=== PATIENT | female | born 1955 | race Caucasian/White ===

== ENCOUNTER 2020-01-19 11:22 | Outpatient (REF) | payer OTHER, SELFPAY ==
[2020-01-19 14:58] LABS: Free T4 (Free Thyroxine) 1.42 ng/dL (0.71-1.85); Thyroid Stimulating Hormone 4.32 mIU/mL (0.32-4.0)
[2020-01-30 21:48] LABS: Thyroglobulin Antibody 52 IU/mL (<=1); Thyroglobulin LC/MS/MS <0.4 ng/mL (Athyrotic: <0)
== END 2020-01-19 11:23 | disposition home or self-care (01) ==
LOC: HO.HMGCLDS 11:22
PROVIDERS: PCP Internal Medicine; Visit Provider Internal Medicine Endocrinology, Diabetes & Metabolism
DX: C73 Malignant neoplasm of thyroid gland (principal)
CPT/HCPCS: 36415; 84432; 84439; 84443; 86800

== ENCOUNTER → 2020-01-22 10:55 | Outpatient (BNVA) | payer OTHER, SELFPAY | PROVIDERS: PCP Internal Medicine; Visit Provider Urology | DX: R31.29 Other microscopic hematuria (principal) | CPT/HCPCS: 52000; 81002; 99212 ==

== ENCOUNTER 2020-01-28 12:29 | Outpatient (REF) | payer OTHER, SELFPAY ==
--- NOTE | 2020-01-28 | MM_ITS ---
EXAMINATION: MM SCREENING DIGITAL BREAST TOMOSYNTHESIS, BILATERAL CLINICAL INFORMATION: Screening. Asymptomatic. Status post right lumpectomy. COMPARISON: Mammography: August 28, 2018 and studies dating back to July 22, 2012 TECHNIQUE: Digital breast tomosynthesis is performed in both the craniocaudal and mediolateral oblique views along with computer-aided detection (CAD). Synthesized 2D images are generated from the tomosynthesis. Additional right exaggerated craniocaudal view performed. FINDINGS: There are scattered areas of fibroglandular density (ACR BI-RADS breast composition Category b). There are no significant masses, abnormal calcifications, or other abnormalities. Patient status post remote right lumpectomy with associated postsurgical change. MM/MM tomosynthesis screening BI IMPRESSION: There are no significant changes from prior study. ASSESSMENT: BI-RADS 2: Benign RECOMMENDATION: Routine annual mammography screening. This patient's information was entered into a reminder system with a target due date for their next mammogram.
== END 2020-01-28 12:30 | disposition home or self-care (01) ==
LOC: HO.MAMMO 12:29
PROVIDERS: PCP Internal Medicine; Visit Provider Internal Medicine
DX: Z12.31 Encounter for screening mammogram for malignant neoplasm of breast (principal)
CPT/HCPCS: 77063; 77067

== ENCOUNTER 2020-01-29 10:58 | Outpatient (REF) | payer OTHER, SELFPAY ==
[2020-01-29 12:45] LABS: MANUAL DIFF FLAG NO
[2020-01-29 12:59] LABS: Basophils Absolute Auto 0.1 X10*3/uL (0.0-0.2); Basophils Percent Auto 1.3 % (0-2); Eosinophils Absolute Auto 0.4 X10*3/uL (0.0-0.4); Hemoglobin 14.8 g/dl (12.0-16.0); Imm Gran Abs Auto 0.01 X10*3/uL (0.00-0.03); Imm Gran Pct Auto 0.1 % (0.0-0.4); Lymphocytes Absolute Auto 2.2 X10*3/uL (1.2-4.9); Lymphocytes Percent Auto 30.2 % (20-40); Mean Corpuscular HGB Conc 32.9 g/dl (31.0-35.0); Mean Corpuscular Hemoglobin 29.1 pg (27.0-33.0); Mean Corpuscular Volume 88.6 fL (80-98); Mean Platelet Volume 10.1 fL (9.4-12.3); Monocytes Absolute Auto 0.6 X10*3/uL (0.1-1.2); Monocytes Percent Auto 8.1 % (2-11); Neutrophils Percent Auto 55.3 % (45-73); Platelet Count 332 X10*3/uL (160-400); Red Blood Count 5.08 X10*6/uL (4.20-5.50); Red Cell Distribution Width 12.2 % (11.0-16.0); White Blood Count 7.2 X10*3/uL (4.8-10.8)
[2020-01-29 13:07] LABS: Prothrombin Time 12.3 SEC (10.8-13.0)
[2020-01-29 13:46] LABS: Anion Gap 14 (12-20); Blood Urea Nitrogen 12 mg/dL (9-16); Calcium 8.2 mg/dL (8.4-10.2); Carbon Dioxide 27 mmol/L (22-29); Chloride 101 mmol/L (96-108); Estimated Glomerular Filt Rate > 60; Glucose Random 90 mg/dL (60-115); Potassium 4.4 mmol/l (3.3-5.1); Sodium 138 mmol/L (135-145)
[2020-01-29 13:49] LABS: TSH reflex Free T4 4.33 mIU/mL (0.32-4.0)
[2020-01-29 14:34] LABS: Free T4 (Free Thyroxine) 1.45 ng/dL (0.71-1.85)
[2020-01-30 07:47] LABS: LDL Cholesterol Direct 174 mg/dL (<100)
[2020-01-30 19:01] LABS: Herpes Simplex Type 1 IgG <0.90 index; Herpes Simplex Type 2 IgG >23.00 index
== END 2020-01-29 10:59 | disposition home or self-care (01) ==
LOC: HO.LAB 10:58
PROVIDERS: Absent Provider Internal Medicine; PCP Internal Medicine; Referring Provider Internal Medicine; Visit Provider Internal Medicine Pulmonary Disease
DX: J90 Pleural effusion, not elsewhere classified (principal); J98.11 Atelectasis; R06.02 Shortness of breath; N89.8 Other specified noninflammatory disorders of vagina; R06.00 Dyspnea, unspecified; R93.89 Abnormal findings on diagnostic imaging of other specified body structures
CPT/HCPCS: 36415; 80048; 83721; 84439; 84443; 85025; 85610; 86695; 86696; 99202

== ENCOUNTER 2020-02-13 11:19 | Outpatient (REF) | payer OTHER, SELFPAY ==
--- NOTE | 2020-02-13 11:21 | CT_ITS ---
EXAMINATION: CT CHEST WITHOUT CONTRAST CLINICAL INFORMATION: Pleural effusion. Prior exams indicates history of thyroid and breast cancer. COMPARISON: Previous chest x-ray April 2018 and chest CTA May 2016 TECHNIQUE: Multidetector volumetric CT imaging of the chest was done. Axial MIP volume rendering provided. Sagittal and coronal reformatted images were obtained. This CT examination was performed using dose optimization techniques as appropriate, variously including the following: *Automated exposure control *Adjustment of mA and/or kV according to patient size (this includes techniques or standardized protocols for targeted exams where dose is matched to indication/reason for exam; i.e. extremities or head) *Use of iterative reconstruction technique DLP: 180 mGy-cm FINDINGS: FELT HOOKER: Large right pleural effusion LUNGS: There is compressive atelectasis of the right middle and right lower lobes due to the effusion. There is a small left lower lobe nodule measuring 3 mm axial image 352, measuring 1 mm axial image 368 series 7, 3 mm axial image 419 series 7 and 2 mm axial image 470 series 7. There is a semisolid 3 mm left lower lobe nodule axial image 493 series 7. These are new compared to 2017 exam. There is a 2 x 4 mm peripheral or subpleural lingular nodule adjacent to the fissure axial image 532 series 7 that is unchanged. MEDIASTINUM: There is increasing mediastinal lymphadenopathy compared to chest CTA May 2016. Largest lymph node is a midline precarinal lymph node measuring 1.3 cm axial image 23 series 3 and precarinal lymph node slightly to the right of midline measuring 1.2 x 1.7 cm and a subcarinal lymph node measuring 1.4 cm. The heart does not appear enlarged. There is no pericardial effusion. There is mild coronary artery calcification. PLEURA: There is large partially loculated right pleural effusion. There is question of some pleural thickening or nodularity seen anterior medially adjacent to the mediastinum for example axial image 33 series 3, coronal reconstructed image 25 and and anterior medially at the right lung base adjacent to the right heart border for example axial image 47 series 3, sagittal reconstructed image 17 and coronal reconstructed image 47. There is no left pleural effusion. There is a small left posterior medial diaphragmatic hernia containing fat. AXILLA: There are postsurgical changes to the right breast that appear unchanged. No chest wall mass or enlarged axillary lymph nodes are seen. UPPER ABDOMEN: Gallstones. OSSEOUS STRUCTURES: Unremarkable. CT/CT chest wo con IMPRESSION: New large partially loculated right pleural effusion. Question areas of nodularity or pleural thickening anterior medially adjacent to the right side of the mediastinum and right heart border as described above. Increasing mediastinal lymphadenopathy. Several new small left lower lobe pulmonary nodules.
== END 2020-02-13 11:20 | disposition home or self-care (01) ==
LOC: HO.CT 11:19
PROVIDERS: Visit Provider Internal Medicine Pulmonary Disease
DX: J90 Pleural effusion, not elsewhere classified (principal)
CPT/HCPCS: 71250

== ENCOUNTER 2020-02-17 07:24 | Day surgery (SDC) | payer OTHER, SELFPAY ==
--- NOTE | 2020-02-17 | XR_ITS ---
EXAMINATION: XR CHEST CLINICAL INFORMATION: Status post right thoracentesis. COMPARISON: CT chest 02/13/2020 TECHNIQUE: 2 views of the chest was obtained. FINDINGS: Status post right thoracentesis there is residual fluid within lower right hemithorax likely from trapped right lower lobe. No visible pneumothorax seen. The left lung and right upper lung is expanded and clear. The heart size and pulmonary vascularity is normal. No gross bony abnormality seen. XR/XR chest 1V IMPRESSION: There is residual right loculated pleural effusion with trapped right lower lobe but no visible pneumothorax seen. The right upper lung and the left lung is clear.
--- NOTE | 2020-02-17 08:47 | US_ITS ---
EXAMINATION: ULTRASOUND-GUIDED THORACENTESIS CLINICAL INFORMATION: Right pleural effusion COMPARISON: Previous chest CT 02/13/2020 TECHNIQUE: Procedure and risks and benefits including bleeding, infection and pneumothorax were discussed with the patient and informed consent was obtained. The right posterior lateral chest was prepped and draped in the usual sterile fashion. Skin and soft tissues were anesthetized with 1% lidocaine plain. Using ultrasound guidance and a 4 Wolof rapid catheter, access to the right pleural effusion was obtained. 1.1 L of clear yellow fluid was removed. Diagnostic specimen was sent. FINDINGS: Is a large right pleural effusion. US/US drain thoracentesis IMPRESSION: Ultrasound-guided right thoracentesis.
--- NOTE | 2020-02-17 09:30 | HO.RADPN ---
RADIOLOGY Narrative Narrative: Right thoracentesis performed using 4 Fr catheter. 1 L clear yellow fluid removed.
[2020-02-17 09:45] VITALS: BP 128/47; PULSE 73; RESP 14; TEMP 36.3; O2SAT 93
[2020-02-17 10:15] VITALS: BP 127/63; PULSE 65; RESP 16; O2SAT 94
[2020-02-17 10:34] VITALS: O2SAT 95
[2020-02-17 11:06] VITALS: PULSE 76; RESP 18; TEMP 36.4; O2SAT 92
[2020-02-17 11:48] VITALS: PULSE 73; RESP 18; O2SAT 94
[2020-02-18 10:29] LABS: Total Protein Pleural Fluid 4.4
[2020-02-18 10:30] LABS: Glucose Pleural Fluid 108; LDH Pleural Fluid 125
== END 2020-02-17 12:30 | disposition home or self-care (01) ==
LOC: HO.SSS 07:25
PROVIDERS: Radiology Diagnostic Radiology; Visit Provider Internal Medicine Pulmonary Disease
DX: J90 Pleural effusion, not elsewhere classified (principal); Z88.2 Allergy status to sulfonamides
CPT/HCPCS: 32555; 32557; 71045; 82945; 82947; 83615; 84155; 84157; 87071; 87116; 87205; 88112; 88305

== ENCOUNTER 2020-02-26 11:19 | Outpatient (REF) | payer OTHER, SELFPAY ==
--- NOTE | 2020-02-26 12:21 | XR_ITS ---
EXAMINATION: XR CHEST CLINICAL INFORMATION: Shortness of breath COMPARISON: February 17, 2020 TECHNIQUE: 2 views of the chest were obtained. FINDINGS: There is reaccumulation of a large right pleural effusion. Left hemithorax unremarkable. Heart normal size. No evidence of pulmonary edema. No pneumothorax is seen. There is scoliosis thoracolumbar junction convex left. XR/XR chest 2V IMPRESSION: Reaccumulation of large right pleural effusion.
== END 2020-02-26 11:20 | disposition home or self-care (01) ==
LOC: HO.XRAY 11:19
PROVIDERS: PCP Internal Medicine; Visit Provider Internal Medicine Pulmonary Disease
DX: R06.02 Shortness of breath (principal); J90 Pleural effusion, not elsewhere classified; G47.33 Obstructive sleep apnea (adult) (pediatric); Z99.89 Dependence on other enabling machines and devices
CPT/HCPCS: 71046; 99212

== ENCOUNTER → 2020-03-04 09:58 | Outpatient (BNVA) | payer OTHER, SELFPAY | PROVIDERS: PCP Internal Medicine; Visit Provider Internal Medicine Pulmonary Disease | DX: J90 Pleural effusion, not elsewhere classified (principal); G47.33 Obstructive sleep apnea (adult) (pediatric); Z99.89 Dependence on other enabling machines and devices | CPT/HCPCS: Q3014 ==

== ENCOUNTER → 2020-03-22 10:17 | Outpatient (REF) | payer OTHER, SELFPAY ==
--- NOTE | 2020-03-22 10:34 | CA_ITS ---
Transthoracic Echocardiogram Patient (Last, First, Middle): Flaca Angel, Gender: Female Date of : 1955 Age: 65 Procedure Date: 03/22/2020 Procedure Type: Transthoracic Echocardiogram Location: OP Height: 160.02 cm Weight: 72.58 kg BSA: 1.76 m2 Heart Rate: bpm BP: 120 / 80 mmHg Computer Forensics Examiner: THONY Referring MD: Tomasz Carson MD Symptoms: R06.02 - Shortness of breath Study Quality: Fair ECG Rhythm: Sinus Conclusions: - The left ventricular systolic function is normal. The visually estimated ejection fraction is between 55-60%. - No obvious valvular pathology seen on this study. Findings Left Ventricle Normal left ventricular cavity size. There is normal left ventricular wall thickness. The left ventricular systolic function is normal. The visually estimated ejection fraction is between 55-60%. There is no evidence of regional wall motion abnormalities. Diastolic function is normal for age. Right Ventricle Normal right ventricular cavity size and systolic function. Atria The left atrium is normal in size. The right atrium is normal in size. Aortic Valve There is a normal trileaflet aortic valve. There is no aortic valve stenosis. There is no aortic valve regurgitation. Mitral Valve The mitral valve appears normal. There is trace mitral valve regurgitation. There is no mitral valve stenosis. Pulmonic Valve The pulmonic valve was not well visualized. Tricuspid Valve Normal tricuspid valve structure. There is no tricuspid valve regurgitation. The pulmonary artery systolic pressure is normal. Great Vessels The aortic annulus, sinuses of valsalva, and asc aorta are normal in size. Venous The inferior vena cava is normal in size and collapses greater than 50% with inspiration. Pericardium/Pleural There is no evidence of pericardial effusion. Prior Study Comparison No significant change compared to prior study dated: 12/26/2017. Recommendations, Care & Conclusions No obvious valvular pathology seen on this study. Measurements 2D Linear Measurements IVSd: 0.87 0.6-0.9/0.6-1.0 cm LVIDd: 4.17 3.9-5.3/4.2-5.9 cm LVIDd Index: 2.37 2.4-3.2/2.2-3.1 cm/m2 LVIDs: 2.96 2.0-3.6 cm LVPWd: 0.88 0.7-1.1 cm Ao Root: 2.70 2.1-3.5 cm LA Diam: 2.90 2.7-3.8/3.0-4.0 cm LAIDs Index: 1.65 1.5-2.3 cm/m2 LV Mass: 139.71 67-162/88-224 g LV Mass Index: 79.38 43-95/49-115 g/m2 LVOT Diam: 1.90 3.0+(-)1.3 cm 2D Systolic Function EF 4C: 65.90 >55% EF 2C: 51.50 >55% EF BiP: 59.00 >55% Mitral Valve MV Pk E: 0.78 MV PK A: 0.75 MV Decel Time: 239.00 E/A: 1.00 E'Lateral: 7.18 E'Medial: 4.90 E/E' Med: 15.90 E/E' Lat: 10.90 PHT: 70.00 MVA PHT: 3.14 Decel Claiborne: 3.26 Aortic Valve AoV Pk Dante: 1.49 AoV Mn Dante: 1.02 AoV VTI: 0.32 AoV Pk Grad: 9.00 Aov Mn Grad: 5.00 FANNY Cont.VTI: 2.19 LVOT LVOT Pk Dante: 1.17 LVOT Mn Dante: 0.76 LVOT VTI: 0.25 LVOT Pk Grad: 5.00 LVOT Mn Grad: 3.00 LVOT Diam: 1.90 LVOT Area: 2.84 Diastolic Function MV Pk E: 0.78 MV Pk A: 0.75 E/A: 1.00 E'Medial: 4.90 E/E' Med: 15.90 E' Laterial: 7.18 E/E' Lat: 10.90 Great Vessels Aorta Ao Root-2D: 2.70 2.0-3.7 cm Ao Asc: 3.00 2.1-3.4 cm Updated in Other Vendor System with Status of Final Kristopher Carson MD electronically signed on 03/22/2020 4:40:50 PM with status of Final
[2020-03-22 12:54] LABS: Free T4 (Free Thyroxine) 1.26 ng/dL (0.71-1.85); Thyroid Stimulating Hormone 3.36 uIU/mL (0.32-4.0)
[2020-03-30 13:47] LABS: Thyroglobulin Antibody 48 IU/mL (<=1); Thyroglobulin LC/MS/MS <0.4 ng/mL (Athyrotic: <0)
== END ==
LOC: HO.CARD 10:17
PROVIDERS: Internal Medicine Endocrinology, Diabetes & Metabolism; Visit Provider Internal Medicine Pulmonary Disease
DX: E89.0 Postprocedural hypothyroidism (principal); R06.02 Shortness of breath
CPT/HCPCS: 36415; 84432; 84439; 84443; 86800; 93306

== ENCOUNTER → 2020-03-24 10:51 | Outpatient (BNVA) | payer OTHER, SELFPAY | PROVIDERS: PCP Internal Medicine; Visit Provider Internal Medicine Pulmonary Disease | DX: J90 Pleural effusion, not elsewhere classified (principal); G47.33 Obstructive sleep apnea (adult) (pediatric); Z99.89 Dependence on other enabling machines and devices; Z87.891 Personal history of nicotine dependence | CPT/HCPCS: Q3014 ==

== ENCOUNTER → 2020-04-02 09:12 | Outpatient (BNVA) | payer OTHER, SELFPAY | PROVIDERS: PCP Internal Medicine; Visit Provider Surgery | DX: J90 Pleural effusion, not elsewhere classified (principal); R06.02 Shortness of breath; J98.11 Atelectasis; R06.00 Dyspnea, unspecified | CPT/HCPCS: 99212 ==

== ENCOUNTER 2020-04-12 13:03 | Outpatient (REF) | payer OTHER, SELFPAY ==
[2020-04-12 14:26] LABS: Hematocrit 43.6 % (37-47); Hemoglobin 14.4 g/dl (12.0-16.0); Mean Corpuscular Hemoglobin 28.9 pg (27.0-33.0); Mean Corpuscular Volume 87.6 fL (80-98); Mean Platelet Volume 10.2 fL (9.4-12.3); Platelet Count 330 X10*3/uL (160-400); Red Blood Count 4.98 X10*6/uL (4.20-5.50); Red Cell Distribution Width 12.4 % (11.0-16.0)
[2020-04-12 14:50] LABS: Blood Urea Nitrogen 12 mg/dL (9-16); Estimated Glomerular Filt Rate > 60
== END 2020-04-12 13:04 | disposition home or self-care (01) ==
LOC: HO.LAB 13:03
PROVIDERS: Visit Provider Surgery
DX: Z01.818 Encounter for other preprocedural examination (principal); J90 Pleural effusion, not elsewhere classified
CPT/HCPCS: 36415; 82565; 84520; 85027

== ENCOUNTER 2020-04-14 11:00 | Inpatient (IN) | payer OTHER, SELFPAY ==
[2020-04-09 10:13] VITALS: BMI 28.3
--- NOTE | 2020-04-13 09:10 | P.CONAN_ITS ---
Documented by User: Mitzi Velázquezney 04/13/20 09:27 HPI - Anesthesia Eval Consult details Narrative: 65yo F for Thoracoscopy w/Video Assist,with talc,insertion of plurex cath breast ca s/p radiation, fluid negative for malignant cells PMFSH Past Medical History Medical History Arthritis Atelectasis of right lung Back pain Cancer Depression GERD (gastroesophageal reflux disease) History of anxiety History of chemotherapy History of palpitations Hx of radiation therapy Lab test negative for COVID-19 virus Pleural effusion, right Post-surgical hypothyroidism Shortness of breath Sleep apnea Thyroid disease Vaginal lesion Family History Family History Father Alzheimer's disease HTN (hypertension) Mother Macular degeneration PVD (peripheral vascular disease) HTN (hypertension) CHF (congestive heart failure) Renal failure Maternal Grandfather CVD (cardiovascular disease) Myocardial infarction Maternal Grandmother CVD (cardiovascular disease) Stomach cancer Paternal Grandfather Black lung disease Paternal Grandmother No problems noted. Brother No problems noted. Sister No problems noted. Son No problems noted. Son No problems noted. Surgical History Surgical History History of colonoscopy History of endoscopy History of partial mastectomy History of thyroidectomy Hx of total knee replacement Social History Social History Household Members: Significant Other Housing: House Alcohol intake: never Smoking Status: Former smoker Tobacco Type: Cigarette Years Smoked: 10 yrs Narrative Narrative: Had cardiac workup early 2019 for exertional CP and palps. Stress Echo was neg. Pt under a lot of stress at that time. Levoxyl dose adjusted. Symptoms improved. Meds Allergies Allergy/AdvReac Type Severity Reaction Status Date / Time Sulfa (Sulfonamide Allergy Severe lip Verified 04/14/20 11:07 Antibiotics) swelling sulfamethoxazole Allergy Severe FACE/LIP Verified 04/14/20 11:07 [From BACTRIM] SWELLING adhesive tape [ADHESIVE TAPE] Allergy Intermediate BLISTERS,SKIN Verified 04/14/20 11:07 SLOUGHING Home Medications Medication Instructions Recorded Confirmed Type atorvastatin 40 mg tablet 40 mg PO BEDTIME 01/27/20 04/09/20 History ropinirole 1 mg tablet 1 mg PO BEDTIME PRN 01/27/20 04/09/20 History cholecalciferol (vitamin D3) 10 10 mcg PO BEDTIME 04/02/20 04/09/20 History mcg (400 unit) capsule fluoxetine 40 mg capsule 40 mg PO DAILY 04/02/20 04/09/20 History famotidine 40 mg PO BID 04/09/20 04/09/20 History propranolol 120 mg PO DAILY 04/09/20 04/09/20 History Exam Exam Date and Time: April 13, 2020 0910 Height,Weight and Vital Signs: Height 5 ft 3 in Weight 72.575 kg Pertinent Lab Results Pertinent Lab Results: Laboratory Tests 04/12/20 13:29 Blood Type O Positive Antibody Screen NEGATIVE Laboratory Tests 01/29/20 04/12/20 04/12/20 11:51 13:29 13:29 WBC 8.0 Hgb 14.4 Hct 43.6 Plt Count 330 Sodium 138 Potassium 4.4 Chloride 101 Carbon Dioxide 27 BUN 12 Creatinine 0.82 Narrative Narrative: ECHO 02/2020 Conclusions: - The left ventricular systolic function is normal. The visually estimated ejection fraction is between 55-60%. - No obvious valvular pathology seen on this study. Assessment and Plan Assessment Anesthesia Assessment: Chart Reviewed Documented by User: Keshawn Zarate MD 04/14/20 11:30 [facility] Past Medical History Medical History Arthritis Atelectasis of right lung Back pain Cancer Depression GERD (gastroesophageal reflux disease) History of anxiety History of chemotherapy History of palpitations Hx of radiation therapy Lab test negative for COVID-19 virus Pleural effusion, right Post-surgical hypothyroidism Shortness of breath Sleep apnea Thyroid disease Vaginal lesion Family History Family History Father Alzheimer's disease HTN (hypertension) Mother Macular degeneration PVD (peripheral vascular disease) HTN (hypertension) CHF (congestive heart failure) Renal failure Maternal Grandfather CVD (cardiovascular disease) Myocardial infarction Maternal Grandmother CVD (cardiovascular disease) Stomach cancer Paternal Grandfather Black lung disease Paternal Grandmother No problems noted. Brother No problems noted. Sister No problems noted. Son No problems noted. Son No problems noted. Surgical History Surgical History History of colonoscopy History of endoscopy History of partial mastectomy History of thyroidectomy Hx of total knee replacement Social History Social History Household Members: Significant Other Housing: House Alcohol intake: never Smoking Status: Former smoker Tobacco Type: Cigarette Years Smoked: 10 yrs Meds Allergies Allergy/AdvReac Type Severity Reaction Status Date / Time Sulfa (Sulfonamide Allergy Severe lip Verified 04/14/20 11:07 Antibiotics) swelling sulfamethoxazole Allergy Severe FACE/LIP Verified 04/14/20 11:07 [From BACTRIM] SWELLING adhesive tape [ADHESIVE TAPE] Allergy Intermediate BLISTERS,SKIN Verified 04/14/20 11:07 SLOUGHING Home Medications Medication Instructions Recorded Confirmed Type atorvastatin 40 mg tablet 40 mg PO BEDTIME 01/27/20 04/09/20 History ropinirole 1 mg tablet 1 mg PO BEDTIME PRN 01/27/20 04/09/20 History cholecalciferol (vitamin D3) 10 10 mcg PO BEDTIME 04/02/20 04/09/20 History mcg (400 unit) capsule fluoxetine 40 mg capsule 40 mg PO DAILY 04/02/20 04/09/20 History famotidine 40 mg PO BID 04/09/20 04/09/20 History propranolol 120 mg PO DAILY 04/09/20 04/09/20 History Exam Airway Mallampati Class: II TM Dist: >3cm Neck ROM: Full Heart: RRR Lungs: PEGUERO Assessment and Plan Assessment Anesthesia Assessment: Anesthesia Plan Discussed, PAT Visit and Chart Reviewed Final Anesthetic Review NPO: Yes ASA Class: III Final Preanesthetic Review: No Changes in Pt Med Stat, Meds/Allgs Chart Reviewed, Consent Obtained/Reviewed and Anes Risks/Benef Reviewed Patient Risk: High Procedure Risk: High Anesthetic Plan Anesthetic Plan: GA and Regional Block Disposition: Standard PACU
[2020-04-14] VITALS (13 sets, daily range): BP systolic 109–158; BP diastolic 50–84; PULSE 63–84; RESP 16–20; TEMP 36.4–36.9; O2SAT 96–100
--- NOTE | 2020-04-14 | ECG_ITS ---
Test Reason : PLEUREL EFFUSION Blood Pressure : / mmHG Vent. Rate : 069 BPM Atrial Rate : 069 BPM P-R Int : 152 ms QRS Dur : 070 ms QT Int : 422 ms P-R-T Axes : 078 038 056 degrees QTc Int : 452 ms Sinus rhythm with Premature supraventricular complexes Otherwise normal ECG When compared with ECG of 22-DEC-2016 13:56, No significant change was found Referred By: Mitzi Cade Electronically Signed By:CHANELL PATRICK
--- NOTE | 2020-04-14 | XR_ITS ---
EXAMINATION: XR CHEST CLINICAL INFORMATION: Post right thoracentesis with Pleurx catheter COMPARISON: Previous chest x-ray post recent 02/26/2020 TECHNIQUE: Frontal view of the chest was obtained. FINDINGS: There is a new right Pleurx catheter. There is no residual right pleural effusion seen. There is air at the right lung base or small pneumothorax. There is a peripheral thickening of the visualized adjacent right lung and this probably represents a partially trapped right lower or middle lobe. The left lung is clear. There is no left pleural effusion. The cardiac and mediastinal contours are stable. There are degenerative changes of the spine. XR/XR chest 1V IMPRESSION: Satisfactory position of right chest tube. Small pneumothorax at the right lung base. No right pleural effusion seen. This is probably related to a partially trapped right middle or lower lobe.
[2020-04-14] MEDS: ceFAZolin Sodium/Dextrose,Iso 2 GM/50 ML PIGGYBACK IV (11:13)
[2020-04-14] MEDS: Lactated Ringers 1,000 ML 50 ML IVCONT (11:22)
[2020-04-14 11:24] LABS: COVID-19 Test Negative (Negative)
[2020-04-14] MEDS: Scopolamine 1.5 MG PATCH.TD.3 TRANSDERMA (11:52)
[2020-04-14] MEDS: Gabapentin 300 MG CAPSULE PO (11:53)
--- NOTE | 2020-04-14 12:00 | MHC.SHP ---
Pre-Procedural Eval Section B Chief Complaint: s/p right vats with plurex catheter insertion Allergies: Allergies Allergy/AdvReac Type Severity Reaction Status Date / Time Sulfa (Sulfonamide Allergy Severe lip Verified 04/14/20 11:07 Antibiotics) swelling sulfamethoxazole Allergy Severe FACE/LIP Verified 04/14/20 11:07 [From BACTRIM] SWELLING adhesive tape [ADHESIVE TAPE] Allergy Intermediate BLISTERS,SKIN Verified 04/14/20 11:07 SLOUGHING Plan I have reviewed the history and physical and performed a pertinent physical examination on my patient. No changes have occurred unless specified.
[2020-04-14] MEDS: oxyCODONE HCl Immed Release 5 MG TABLET PO ×2 (15:01→21:19)
[2020-04-14] MEDS: Acetaminophen 325 MG TABLET 650 MG PO (15:01)
[2020-04-14] MEDS: Ketorolac Tromethamine 15 MG/ML VIAL IVPUSH ×2 (15:02→18:09)
[2020-04-14] MEDS: Heparin Sodium,Porcine 5,000 UNIT/ML VIAL 5000 UNIT SUBCUT (18:09)
[2020-04-14] MEDS: Famotidine 20 MG TABLET 40 MG PO (21:12)
[2020-04-14] MEDS: Cholecalciferol (Vitamin D3) 10 MCG TABLET PO (21:12)
[2020-04-14] MEDS: Atorvastatin Calcium 40 MG TABLET PO (21:13)
--- NOTE | 2020-04-14 22:16 | OP_ITS ---
SURGEON: Stacey Rey MD PREOPERATIVE DIAGNOSIS: Recurrent right pleural effusion. POSTOPERATIVE DIAGNOSIS: Recurrent right pleural effusion. PROCEDURE PERFORMED: Right VATS, pleurodesis, pleural biopsy, PleurX catheter. ESTIMATED BLOOD LOSS: Minimal. COMPLICATIONS: ANESTHESIA: ASSISTANTS: SPECIMENS: Right pleural fluid and right pleural biopsy. OPERATION IN DETAIL: On the day of the operation, the patient was brought to the operating room, placed supine on the operative table. Anesthesia monitoring devices were placed. The patient was intubated with a double-lumen endotracheal tube. The pediatric bronchoscope was used to confirm placement of the double-lumen tube. Once in place, the patient was then turned on her left side with the right chest up and the right chest was widely prepped and draped in the standard sterile fashion. After injection of local anesthetic, a 5 mm incision was made in the 7th intercostal space posterior axillary line and the chest was entered without difficulty. First, the suction Yankauer was placed into the chest and about 2.5 L of fluid was evacuated, some of them collected as specimen. A 5 mm trocar and 5 mm 45-degree scope were then inserted into the chest and the chest was explored. There was a small amount of residual fluid, but all over the chest wall and on portions of the upper and middle lobe of the lung. There were studded pleural plaques that were nodular and vascularized. The camera was then directed superiorly, and an incision was made over the 5th intercostal space anteriorly and the chest was entered under direct vision after injection of local anesthetic. Through this incision, using electrocautery, a pleural biopsy was taken and sent to pathology of one of the pleural plaques/nodules. Next, 4 g of talc was then placed into the chest and with the CO2 insufflation connected to the suction Yankauer. This talc was distributed evenly over the lungs, chest wall, and diaphragm. Once this was done, the camera was directed inferiorly and a 1 cm incision was made, and the chest was entered just above the diaphragm. A stab incision was made over the right upper quadrant of the abdomen, and the PleurX catheter was tunneled from there to the inferior incision. The PleurX catheter was then placed into the chest and directed to lie posteriorly and up towards the apex under direct vision. The PleurX catheter was then secured in place, and the lung was brought up under direct vision. The lower lobe of the lung did come up what looked like completely; however, the process was going on and there had trapped middle and lower lobes of the lung, and there likely will be a on x-ray. The camera was then removed, and the PleurX catheter was then connected to an atrium container to be placed on suction for 48 hours. The remaining incisions were closed with a deep 0 Vicryl suture followed by running 3-0 Vicryl suture and Dermabond glue. The patient tolerated the procedure well, was extubated at the conclusion of the operation, and brought to the recovery room in stable condition. TOWER ATTENDANT: ANDRE Yeager MD LJR/VIDA / [phone]
[2020-04-14 22:41] LABS: Glucose, Whole Blood 152 mg/dL (60-115)
[2020-04-15] VITALS: BP 110/59; PULSE 76; RESP 16; TEMP 36.6; O2SAT 97
[2020-04-15] MEDS: Ketorolac Tromethamine 15 MG/ML VIAL IVPUSH ×4 (00:11→17:27)
[2020-04-15] MEDS: Heparin Sodium,Porcine 5,000 UNIT/ML VIAL 5000 UNIT SUBCUT ×3 (00:11→15:47)
[2020-04-15 04:00] VITALS: BP 107/53; PULSE 70; RESP 16; TEMP 36.6; O2SAT 95
--- NOTE | 2020-04-15 06:00 | XR_ITS ---
EXAMINATION: XR CHEST CLINICAL INFORMATION: Status post pleurodesis with Pleurx catheter postop day 1 COMPARISON: Chest 04/14/2020 TECHNIQUE: Frontal view of the chest was obtained. FINDINGS: There is small pneumothorax at the right lung base. There is a right Pleurx catheter with stiffener overlying the right posterior fourth rib. There is a collapsed right lower lobe medially, stable. The right upper lung and the left lung remains expanded and clear on size and vascularity is normal. XR/XR chest 1V IMPRESSION: Loculated pneumothorax the right lung base, Pleurx catheter and collapsed right middle lobe and/or lower lobe are unchanged to 04/14/2020 exam.
[2020-04-15] MEDS: oxyCODONE HCl Immed Release 5 MG TABLET PO (06:20)
[2020-04-15 06:42] LABS: MANUAL DIFF FLAG NO
[2020-04-15 06:51] LABS: Basophils Percent Auto 0.3 % (0-2); Eosinophils Percent Auto 0.1 % (0-4); Hematocrit 40.7 % (37-47); Hemoglobin 13.1 g/dl (12.0-16.0); Imm Gran Pct Auto 0.7 % (0.0-0.4); Lymphocytes Absolute Auto 2.1 X10*3/uL (1.2-4.9); Lymphocytes Percent Auto 14.8 % (20-40); Mean Corpuscular HGB Conc 32.2 g/dl (31.0-35.0); Mean Corpuscular Hemoglobin 28.8 pg (27.0-33.0); Mean Corpuscular Volume 89.5 fL (80-98); Mean Platelet Volume 10.2 fL (9.4-12.3); Monocytes Absolute Auto 1.1 X10*3/uL (0.1-1.2); Monocytes Percent Auto 7.9 % (2-11); Neutrophils Absolute Auto 10.8 X10*3/uL (2.0-8.3); Neutrophils Percent Auto 76.2 % (45-73); Platelet Count 279 X10*3/uL (160-400); Red Blood Count 4.55 X10*6/uL (4.20-5.50); Red Cell Distribution Width 12.3 % (11.0-16.0); White Blood Count 14.2 X10*3/uL (4.8-10.8)
[2020-04-15 07:19] LABS: Anion Gap 14 (12-20); Blood Urea Nitrogen 13 mg/dL (9-16); Calcium 8.4 mg/dL (8.4-10.2); Carbon Dioxide 25 mmol/L (22-29); Chloride 102 mmol/L (96-108); Creatinine Clr Calc Pharmacy 61.6; Estimated Glomerular Filt Rate > 60; Glucose Random 118 mg/dL (60-115); Magnesium 2.3 mg/dL (1.6-2.6); Potassium 4.9 mmol/l (3.3-5.1); Sodium 136 mmol/L (135-145)
[2020-04-15 07:27] VITALS: BP 131/64; PULSE 64; RESP 18; TEMP 36.7; O2SAT 98
[2020-04-15] MEDS: Propranolol HCL LA 60 MG CAP.SA.24H 120 MG PO (08:13)
[2020-04-15] MEDS: FLUoxetine HCl 20 MG CAPSULE 40 MG PO (08:15)
[2020-04-15] MEDS: Levothyroxine Sodium 88 MCG TABLET PO (08:53)
--- NOTE | 2020-04-15 08:53 | MHC.CM.PN ---
IMM 04/15/2020 Female 65 DX S/P VATS procedure. She lives with S.O. She is independent all functional mobility. A HCP evans been documented and placed on chart. Copies provided to the Pt. DP home with services. She requested [facility]. They are active with S.O.. Family transport. CM will follow.
[2020-04-15 11:18] VITALS: BP 126/58; PULSE 64; RESP 18; TEMP 37.1; O2SAT 98
--- NOTE | 2020-04-15 13:26 | PC.NURSE ---
Pt resting quietly in bed. no SOB noted. Only discomfort is her slight lymphadema to right arm. Mediated with toradol with +effect. Has only voided time 1 today. Encouraged increased PO intake to prevent dehydration and thickened secretions. 1View CXR ordered. Spoke with radiology and they will be up to do a PCXR SABRINA. CT remains to -20 cm suction with +fluctuation noted and + air leak. I have been encouraging OOB activity but refused earlier today. will continue to encourage. pneumatic compression boots on
--- NOTE | 2020-04-15 13:59 | P.PNTS_ITS ---
Subjective Subjective Date of Service: 04/15/20 Interval history: Patient feeling well today. Complains of some pain at the incision sites and her right shoulder but otherwise pain controlled. Has not been OOB as of yet. Denies any SOB, PEGUERO, abdominal pain, nausea, vomiting, LE pain/swelling. Physical Exam Vital Signs: Vital Signs: Last Vital Signs Temp 98.8 F 04/15/20 11:18 Pulse 64 04/15/20 11:18 Resp 18 04/15/20 11:18 BP 126/58 L 04/15/20 11:18 Pulse Ox 98 04/15/20 11:18 Body Mass Index 28.3 General: No acute distress, resting comfortably in bed, well developed Head: Normocephalic, atraumatic, symmetric Eyes: Sclera anicteric, eyelids without edema or erythema, +EOMS intact ENT: Oral mucosa and tongue are moist without lesions or exudates Neck: Soft, supple, symmetric, trachea midline, no crepitus Cardiovascular: Regular rate and rhythm, no murmur/rubs/gallops, BUE and BLE without edema, no calf tenderness bilaterally Respiratory: Lungs CTA B, breathing nonlabored, speaking in full sentences, on oxygen via nasal cannula. No use of accessory muscles. Multiple right sided chest incisions are C/D/I without erythema/drainage/open areas, no crepitus. Left Pleurx catheter to [facility] on -20 wall suction, serosang drainage, 1+ air leak with talking and cough. Gastrointestinal: Soft, non-tender, non-distended, +normoactive bowel sounds. Skin: Warm and dry throughout, no rashes Neurological: Alert and oriented x 3, no focal neurological deficit noted Psychiatric: No agitation, appropriate affect DIAGNOSTICS: Lab Results 04/12/20 04/14/20 04/14/20 Range/Units 13:29 10:39 22:37 WBC (4.8-10.8) X10*3 /uL RBC (4.20-5.50) X10* 6/uL Hgb (12.0-16.0) g/dl Hct (37-47) % MCV (80-98) fL MCH (27.0-33.0) pg MCHC (31.0-35.0) g/dl RDW (11.0-16.0) % Plt Count (160-400) X10*3/ uL MPV (9.4-12.3) fL Immature Gran % (A uto) (0.0-0.4) % Neut % (Auto) (45-73) % Lymph % (Auto) (20-40) % [place] % (Auto) (2-11) % Eos % (Auto) (0-4) % Baso % (Auto) (0-2) % Lymph # (Auto) (1.2-4.9) X10*3/ uL [place] # (Auto) (0.1-1.2) X10*3/ uL Eos # (Auto) (0.0-0.4) X10*3/ uL Baso # (Auto) (0.0-0.2) X10*3/ uL Abs Immat Gran (au to) (0.00-0.03) X10* 3/uL Absolute Neuts (au to) (2.0-8.3) X10*3/ uL Absolute Nucleated RBC (0.0-0.012) X10* 3/uL Nucleated RBC % (a uto) (0.0-0.2) /100WB C Sodium (135-145) mmol/L Potassium (3.3-5.1) mmol/l Chloride (96-108) mmol/L Carbon Dioxide (22-29) mmol/L Anion Gap (12-20) BUN (9-16) mg/dL Creatinine (0.5-1.4) mg/dL Estim Creat Clear Calc Estimated GFR POC Glucose 152 H (60-115) mg/dL Random Glucose (60-115) mg/dL Calcium (8.4-10.2) mg/dL Magnesium (1.6-2.6) mg/dL COVID-19 (LATOSHA) Negative (Negative) COVID-19 Clin Com See Note Blood Type O Positive Antibody Screen NEGATIVE 04/15/20 04/15/20 Range/Units 05:51 05:51 WBC 14.2 H (4.8-10.8) X10*3 /uL RBC 4.55 (4.20-5.50) X10* 6/uL Hgb 13.1 (12.0-16.0) g/dl Hct 40.7 (37-47) % MCV 89.5 (80-98) fL MCH 28.8 (27.0-33.0) pg MCHC 32.2 (31.0-35.0) g/dl RDW 12.3 (11.0-16.0) % Plt Count 279 (160-400) X10*3/ uL MPV 10.2 (9.4-12.3) fL Immature Gran % (A uto) 0.7 H (0.0-0.4) % Neut % (Auto) 76.2 H (45-73) % Lymph % (Auto) 14.8 L (20-40) % [place] % (Auto) 7.9 (2-11) % Eos % (Auto) 0.1 (0-4) % Baso % (Auto) 0.3 (0-2) % Lymph # (Auto) 2.1 (1.2-4.9) X10*3/ uL [place] # (Auto) 1.1 (0.1-1.2) X10*3/ uL Eos # (Auto) 0.0 (0.0-0.4) X10*3/ uL Baso # (Auto) 0.0 (0.0-0.2) X10*3/ uL Abs Immat Gran (au to) 0.10 H (0.00-0.03) X10* 3/uL Absolute Neuts (au to) 10.8 H (2.0-8.3) X10*3/ uL Absolute Nucleated RBC 0.000 (0.0-0.012) X10* 3/uL Nucleated RBC % (a uto) 0.0 (0.0-0.2) /100WB C Sodium 136 (135-145) mmol/L Potassium 4.9 (3.3-5.1) mmol/l Chloride 102 (96-108) mmol/L Carbon Dioxide 25 (22-29) mmol/L Anion Gap 14 (12-20) BUN 13 (9-16) mg/dL Creatinine 0.88 (0.5-1.4) mg/dL Estim Creat Clear Calc 61.6 Estimated GFR > 60 POC Glucose (60-115) mg/dL Random Glucose 118 H (60-115) mg/dL Calcium 8.4 (8.4-10.2) mg/dL Magnesium 2.3 (1.6-2.6) mg/dL COVID-19 (LATOSHA) (Negative) COVID-19 Clin Com Blood Type Antibody Screen EXAMINATION: XR CHEST CLINICAL INFORMATION: Status post pleurodesis with Pleurx catheter postop day 1 COMPARISON: Chest 04/14/2020 TECHNIQUE: Frontal view of the chest was obtained. FINDINGS: There is small pneumothorax at the right lung base. There is a right Pleurx catheter with stiffener overlying the right posterior fourth rib. There is a collapsed right lower lobe medially, stable. The right upper lung and the left lung remains expanded and clear on size and vascularity is normal. XR/XR chest 1V IMPRESSION: Loculated pneumothorax the right lung base, Pleurx catheter and collapsed right middle lobe and/or lower lobe are unchanged to 04/14/2020 exam. Progress Note: A&P Assessment and plan (1) Pleural effusion, right: Problem details: recurrent Status: Acute Assessment and Plan: POD#1 s/p R VATS talc pleurodesis and Pleurx catheter placement * Continue Pleurx to [facility] on -20 wall suction. May disconnect from suction for ambulation purposes. * Monitor air leak and fluid output q4h. * Morning CXR ordered. * Pain management as needed * Pulmonary toilet * Patient should be OOB ambulating at least 3-4 times daily. * Patient should be OOB to recliner for all meals. * Dispo planning: will need VNA services set up for every other day Pleurx drainage as an outpatient. Fall Risk Details Current Medications: Current Medications Generic Name Dose Route Start Last Admin Trade Name Freq PRN Reason Stop Dose Admin Acetaminophen 650 mg 04/14/20 14:20 Acetaminophen 325 Mg Tablet PO Q6H PRN Pain, Mild (Pain Scale 1-3) Al Hydroxide/Mg Hydroxide 30 ml 04/14/20 14:20 Magnesium Hydrox/Alum Hydrox 30 Ml Oral.Susp PO Q4H PRN Heartburn/Nausea Albuterol Sulfate 2 puff 04/14/20 14:54 Albuterol Sulfate 90 Mcg 8 Gm Inhaler INHALE Q4H PRN bronchospasm Atorvastatin Calcium 40 mg 04/14/20 21:00 04/14/20 21:13 Atorvastatin Calcium 40 Mg Tablet PO 40 mg BEDTIME JUANCARLOS Administration Docusate Sodium 100 mg 04/14/20 14:20 Docusate Sodium 100 Mg Capsule PO DAILY PRN Constipation Famotidine 40 mg 04/14/20 21:00 04/15/20 08:18 Famotidine 20 Mg Tablet PO Not Given BID [facility] Fluoxetine HCl 40 mg 04/15/20 09:00 04/15/20 08:15 Fluoxetine Hcl 20 Mg Capsule PO 40 mg DAILY JUANCARLOS Administration Heparin Sodium (Porcine) 5,000 unit 04/14/20 16:00 04/15/20 08:15 Heparin Sodium,Porcine 5,000 Unit/Ml Vial SUBCUT 5,000 unit Q8H JUANCARLOS Administration Ketorolac Tromethamine 15 mg 04/14/20 18:00 04/15/20 12:14 Ketorolac Tromethamine 15 Mg/Ml Vial IVPUSH 15 mg Q6H JUANCARLOS Administration Levothyroxine Sodium 88 mcg 04/15/20 09:00 04/15/20 08:53 Levothyroxine Sodium 88 Mcg Tablet PO 88 mcg DAILY JUANCARLOS Administration Naloxone HCl 0.04 mg 04/14/20 14:31 Naloxone Hcl 0.4 Mg/Ml Vial IVPUSH Q2M PRN Respiratory Rate < 10 Ondansetron HCl 4 mg 04/14/20 11:31 Ondansetron Hcl 4 Mg/2 Ml Vial IVPUSH ONCE PRN Nausea and Vomiting Ondansetron HCl 4 mg 04/14/20 14:20 Ondansetron Hcl 4 Mg/2 Ml Vial IVPUSH Q8H PRN Nausea and Vomiting Oxycodone HCl 5 mg 04/14/20 14:20 04/15/20 06:20 Oxycodone Hcl Immed Release 5 Mg Tablet PO 5 mg Q4H PRN Administration moderate pain Oxycodone HCl 10 mg 04/14/20 14:25 Oxycodone Hcl Immed Release 5 Mg Tablet PO Q4H PRN severe pain Propranolol HCl 120 mg 04/15/20 09:00 04/15/20 08:13 Propranolol Hcl La 60 Mg Cap.Sa.24h PO 120 mg DAILY JUANCARLOS Administration Protocol Ropinirole HCl 1 mg 04/14/20 14:54 Ropinirole Hcl 1 Mg Tablet PO BEDTIME PRN Restless Leg(S) Senna 17.2 mg 04/14/20 14:20 Sennosides 8.6 Mg Tablet PO BEDTIME PRN Constipation Vitamin D 10 mcg 04/14/20 21:00 04/14/20 21:12 Cholecalciferol (Vitamin D3) 10 Mcg Tablet PO 10 mcg BEDTIME JUANCARLOS Administration Time Spent With Patient Time: Total time spent is greater than 50% in coordination of care (as documented) at patient's floor/unit and/or counseling patient: Time with patient: 15 - 24 minutes
[2020-04-15 15:22] VITALS: BP 120/58; PULSE 74; RESP 18; TEMP 36.6; O2SAT 93
--- NOTE | 2020-04-15 15:56 | HO.POSTANES ---
Post Anesthesia Evaluation Post Anesthesia Evaluation Vital Signs: Vital Signs Temp Pulse Resp BP Pulse Ox 04/15/20 15:22 97.9 F 74 18 120/58 L 93 04/15/20 11:18 98.8 F 64 18 126/58 L 98 04/15/20 07:27 98.1 F 64 18 131/64 98 04/15/20 04:00 97.8 F 70 16 107/53 L 95 Anesthesia: General Endotracheal-GETA (LYNNETTE) Mental Status: Awake Pain Control: Satisfactory Nausea/Vomiting: None Hydration: Adequate Anesthesia-Related Issues: No Anes. Related Issues
[2020-04-15] MEDS: oxyCODONE HCl Immed Release 5 MG TABLET 10 MG PO (18:45)
[2020-04-15 19:19] VITALS: BP 116/55; PULSE 77; RESP 18; TEMP 37.3; O2SAT 98
[2020-04-15] MEDS: Atorvastatin Calcium 40 MG TABLET PO (21:32)
[2020-04-15] MEDS: Famotidine 20 MG TABLET 40 MG PO (21:32)
[2020-04-15] MEDS: Cholecalciferol (Vitamin D3) 10 MCG TABLET PO (21:33)
[2020-04-16] VITALS: BP 111/53; PULSE 88; RESP 18; TEMP 38; O2SAT 92
[2020-04-16] MEDS: oxyCODONE HCl Immed Release 5 MG TABLET PO (03:27)
[2020-04-16 04:00] VITALS: BP 104/62; PULSE 88; RESP 18; TEMP 37.1; O2SAT 93
--- NOTE | 2020-04-16 06:00 | XR_ITS ---
EXAMINATION: XR CHEST CLINICAL INFORMATION: Postop day 2, status post right VATS. COMPARISON: Chest 04/15/2020 TECHNIQUE: Frontal view of the chest was obtained. FINDINGS: Again visualized is a loculated pneumothorax right lower lobe with mild haziness along the right hemidiaphragm and right lower lobe question effusion. A right-sided chest tube is noted with its tip overlying the right posterior fourth rib. Heart size and pulmonary vascularity is normal. No gross bony abnormality seen. XR/XR chest 1V IMPRESSION: No change in the right chest tube, loculated right basilar pneumothorax. There is minimal haziness in the right lung base new, question effusion or postoperative change. The left lung is clear.
[2020-04-16] MEDS: oxyCODONE HCl Immed Release 5 MG TABLET 10 MG PO ×2 (07:12→11:16)
[2020-04-16 08:00] VITALS: BP 115/56; PULSE 79; RESP 20; TEMP 37; O2SAT 92
--- NOTE | 2020-04-16 11:07 | P.DS_ITS ---
DS: Providers Provider Date of Service: 04/16/20 Date of admission: 04/14/20 11:00 Primary care physician: Joya Gordon MD DS: Diagnosis Discharge Diagnosis (1) Pleural effusion, right: Status: Acute Problem details: recurrent DS: Medications Discharge Medications Home Medications: Home Medications Medication Instructions Recorded Confirmed atorvastatin 40 mg tablet 40 mg PO BEDTIME 01/27/20 04/09/20 ropinirole 1 mg tablet 1 mg PO BEDTIME PRN 01/27/20 04/09/20 cholecalciferol (vitamin D3) 10 10 mcg PO BEDTIME 04/02/20 04/09/20 mcg (400 unit) capsule fluoxetine 40 mg capsule 40 mg PO DAILY 04/02/20 04/09/20 famotidine 40 mg PO BID 04/09/20 04/09/20 propranolol 120 mg PO DAILY 04/09/20 04/09/20 Previous Rx's Medication Instructions Recorded levothyroxine 88 mcg tablet 88 mcg PO DAILY 30 Days #30 tab 01/22/20 albuterol sulfate 90 mcg/actuation 2 puff INHALATION Q4-6H PRN 30 03/15/20 aerosol inhaler Days #18 g DS: Summary Hospital Course Hospital Course: On 04-14-2020 Patient underwent a Right VATS, pleurodesis, pleural biopsy, PleurX catheter for a recurrent pleural effusion. The patient tolerated the procedure well, was extubated at the conclusion of the operation, and brought to the recovery room in stable condition. While on C her stay was relatively uneventful. She remained on -20 low wall suction for 48 hours. On pod 1. She continued to have a +1 air leak with cough and forceful exhalation. A chest x-ray revealed a right-sided basilar loculated pneumothorax which is likely due to trapped lung. On POD#2 Pleurx remianed on -20 LWS overnight with minimal output, no detectable air leak. Pleur X was capped prior to discharge and is to be drained three times per week with VNA taxi servicer. Her morning CXR continued to show small loculated pneumothorax which is likely trapped lung. Her surgical incisional pain remained well controlled with oxycodone 5 mg by mouth q.4 hours as needed. She continued to urinate without difficulty, denies shortness of breath at rest or exertion and was able to ambulate on her own with stable gait. Dispo planning: will need VNA services set up for three times per week for Pleurx drainage as an outpatient. Status at Discharge Cognitive/behavioral status at discharge: Alert and oriented x3 with normal affect Functional status at discharge: independent ambulation Time Spent with Patient Time attestation: Total time spent providing and/or coordinating discharge services: Discharge coordination time: Greater than 30 minutes Specific discharge activities: ACTIVITY: - You should be out of bed and walking at least 3x per day. - No lifting anything heavier than 10lb x 2 weeks (ie, gallon of milk). - Continue to use the incentive spirometer at least 10x per day to aide with keeping the lungs expanded. INCISION CARE: - You may shower, starting today. Avoid direct water to chest tube insertion site you may cleanse the area surrounding with a wash cloth, dry then reapply occlusive bandage. - Keep all incisions clean and dry. - Gently wash incisions with soap and water. No scrubbing the areas. - No tub baths, swimming, etc. for the next 2-4 weeks. CHEST TUBE CARE: - Your Pleur X catheter will require drainage from VNA three times per week unless otherwise directed by your health care provider. - Change dressing around chest tube daily. - You may shower with the chest tube in place. Take down the dressing before showering, cleanse around chest tube site with soapy water gently, then pat around chest tube to dry. Place new dry dressing around chest tube once done with shower. - SHOULD THE CHEST TUBE FALL OUT OF YOUR BODY - QUICKLY PLACE YOUR HAND AND/OR A NEW DRESSING OVER THE SITE AND CALL 911 TO BE TAKEN TO THE NEAREST EMERGENCY ROOM. - SHOULD THE *PNEUMOSTAT / MINI-ATRIUM* EVER FALL OFF THE END OF THE CHEST TUBE - SIMPLY RECONNECT THE DEVICE AND CALL THE THORACIC OFFICE, OR IF AN EMERGENCY CALL 911. MEDICATION: - Take all medications as directed. - No driving when taking narcotic pain medication. - You should be taking a stool softener when taking narcotic pain medications in order to prevent severe constipation. WATCH FOR: - Monitor all incisions for increased redness, swelling, open areas, or drainage. - Monitor for increased air under the skin around the incisions or chest (feels like Rice Krispy cereal when touched). - Monitor for fever, chills, shortness of breath, chest pain, severe abdominal pain, persistent nausea/vomiting, severe changes in bowel or bladder habits. SMOKING CESSATION: - Smoking is hazardous to your health and those around you. - Continuing to smoke or use tobacco products can increase your chance of postoperative complications, including delayed wound healing, wound infection, stroke, and heart attack. - If you currently use tobacco products (cigarettes, dip, cigars, electronic/vapor cigarettes, etc) talk with your provider about options that are available to help you quit. - You can call the [facility] Smokers' Helpline at 3-143-QUIT NOW ( ). For [place], call 0-535-9-DEROMAINLO ( ). You can also visit the website at [email or web address]. FOLLOWUP: - You will have an appointment with the Thoracic Surgery office in 2 weeks for a followup. [address] [place] [address], [place] [address] - Call the thoracic surgery office to schedule a followup appointment for 2 weeks. - Arrive 30 minutes prior to your appointment to have a chest xray done at [facility] (1st floor, [facility]). Go to Patient Registration to check in for the xray. - If you have any questions or concerns please call the thoracic surgery office @ . Physical Exam Vital Signs: Vital Signs: Last Vital Signs Temp 98.6 F 04/16/20 08:00 Pulse 79 04/16/20 08:00 Resp 20 04/16/20 08:00 BP 115/56 L 04/16/20 08:00 Pulse Ox 92 04/16/20 08:00 Body Mass Index 28.3 Const: General: comfortable and no acute distress Orientation/consciousness: patient oriented x3 HENMT: Other: Trachea midline with no subcu air noted. Eyes: General: appearance normal, both eyes and all related structures Chest: Other: Right sided pleur-X catheter remains in place capped with occlusiv dressing CDI. Right sided chest wall incisions CDI with no erythema or edema noted. Resp: Other: BS CTA bilat, no wheezes or rhonchi. Cardio: Jugular venous distension: no JVD Rate: regular rate Rhythm: regular rhythm Heart sounds: S1 normal heart sound present and S2 normal heart sound present GI: Inspection: Yes normal to inspection Palpation (GI): Soft to palpation and nontender Auscultation: normal bowel sounds Neuro: General: patient oriented x3 and gait normal Extrem: General: Yes normal to inspection DS: Data Data Completed and Pending Pending studies at discharge: Pending at discharge 04/14/20 13:25 Surgical [PTH] Routine 04/14/20 13:32 Cytology [PTH] Routine Labs on day of discharge: Laboratory Tests 04/12/20 04/14/20 04/14/20 13:29 10:39 22:37 WBC RBC Hgb Hct MCV MCH MCHC RDW Plt Count MPV Immature Gran % (Auto) Neut % (Auto) Lymph % (Auto) [place] % (Auto) Eos % (Auto) Baso % (Auto) Lymph # (Auto) [place] # (Auto) Eos # (Auto) Baso # (Auto) Abs Immat Gran (auto) Absolute Neuts (auto) Absolute Nucleated RBC Nucleated RBC % (auto) Sodium Potassium Chloride Carbon Dioxide Anion Gap BUN Creatinine Estim Creat Clear Calc Estimated GFR POC Glucose 152 H Random Glucose Calcium Magnesium COVID-19 (LATOSHA) Negative COVID-19 Clin Com See Note Blood Type O Positive Antibody Screen NEGATIVE 04/15/20 04/15/20 05:51 05:51 WBC 14.2 H RBC 4.55 Hgb 13.1 Hct 40.7 MCV 89.5 MCH 28.8 MCHC 32.2 RDW 12.3 Plt Count 279 MPV 10.2 Immature Gran % (Auto) 0.7 H Neut % (Auto) 76.2 H Lymph % (Auto) 14.8 L [place] % (Auto) 7.9 Eos % (Auto) 0.1 Baso % (Auto) 0.3 Lymph # (Auto) 2.1 [place] # (Auto) 1.1 Eos # (Auto) 0.0 Baso # (Auto) 0.0 Abs Immat Gran (auto) 0.10 H Absolute Neuts (auto) 10.8 H Absolute Nucleated RBC 0.000 Nucleated RBC % (auto) 0.0 Sodium 136 Potassium 4.9 Chloride 102 Carbon Dioxide 25 Anion Gap 14 BUN 13 Creatinine 0.88 Estim Creat Clear Calc 61.6 Estimated GFR > 60 POC Glucose Random Glucose 118 H Calcium 8.4 Magnesium 2.3 COVID-19 (LATOSHA) COVID-19 Clin Com Blood Type Antibody Screen Preliminary micro results at discharge 04/14/20 13:03 Anaerobic Culture - Preliminary Pleura No growth to date. Discharge Plan Discharge Patient Disposition: Home Health Service Referrals: [facility] [Outside] Joya Gordon MD [Primary Care Provider] - Discharge Medications: New sennosides [Senna Lax] 8.6 mg Tablet 17.2 mg PO BEDTIME PRN (Reason: Constipation) Qty: 14 RF: 0 oxycodone 5 mg Tablet 5 mg PO Q4H PRN (Reason: moderate pain) Qty: 30 RF: 0 Continued levothyroxine 88 mcg tablet 88 mcg PO DAILY 30 Days Qty: 30 RF: 6 albuterol sulfate 90 mcg/actuation HFA aerosol inhaler 2 puff inhalation Q4-6H PRN (Reason: bronchospasm) 30 Days Qty: 18 RF: 2 propranolol 120 mg capsule,extended release 24 hr 120 mg PO DAILY RF: 0 famotidine 40 mg Tablet 40 mg PO BID RF: 0 atorvastatin 40 mg tablet 40 mg PO BEDTIME RF: 0 ropinirole 1 mg tablet 1 mg PO BEDTIME PRN (Reason: Restless Leg(S)) RF: 0 cholecalciferol (vitamin D3) 10 mcg (400 unit) capsule 10 mcg PO BEDTIME RF: 0 fluoxetine [Prozac] 40 mg capsule 40 mg PO DAILY RF: 0 Discharge Orders: Discharge Order (Routine); Ordered 04/16/20 Ordered By: Anthony Perez Diet: advance to usual diet Activity on Discharge: As tolerated Stand Alone Forms: Patient Portal Discharge page Activity Restrictions/Additional Instructions: ACTIVITY: - You should be out of bed and walking at least 3x per day. - No lifting anything heavier than 10lb x 2 weeks (ie, gallon of milk). - Continue to use the incentive spirometer at least 10x per day to aide with keeping the lungs expanded. INCISION CARE: - the dressing is removed you may leave this area open to air and you may shower. Sponge bathe only until dressing is removed. - You may shower, starting tomorrow 04/17/2020. - Keep all incisions clean and dry. - Gently wash incisions with soap and water. No scrubbing the areas. - No tub baths, swimming, etc. for the next 2-4 weeks. CHEST TUBE CARE: Visiting Nurse will come to your house for Pleur X dressng care and drainage three times per week. - Change dressing around chest tube daily. Your visiting nurse will show you the proper way to change dressing. - You may shower with the chest tube in place. Take down the dressing before showering, cleanse around chest tube site with soapy water gently, then pat around chest tube to dry. Place new dry dressing around chest tube once done with shower. - SHOULD THE CHEST TUBE FALL OUT OF YOUR BODY - QUICKLY PLACE YOUR HAND AND/OR A NEW DRESSING OVER THE SITE AND CALL 911 TO BE TAKEN TO THE NEAREST EMERGENCY R OOM. - MEDICATION: - Take all medications as directed. - No driving when taking narcotic pain medication. - You should be taking a stool softener when taking narcotic pain medications in order to prevent severe constipation. WATCH FOR: - Monitor all incisions for increased redness, swelling, open areas, or drainage. - Monitor for increased air under the skin around the incisions or chest (feels like Rice Krispy cereal when touched). - Monitor for fever, chills, shortness of breath, chest pain, severe abdominal pain, persistent nausea/vomiting, severe changes in bowel or bladder habits. SMOKING CESSATION: - Smoking is hazardous to your health and those around you. - Continuing to smoke or use tobacco products can increase your chance of postoperative complications, including delayed wound healing, wound infection, stroke, and heart attack. - If you currently use tobacco products (cigarettes, dip, cigars, electronic/vapor cigarettes, etc) talk with your provider about options that are available to help you quit. - You can call the [facility] Smokers' Helpline at 6-873-QUIT NOW ( ). For [place], call 7-960-7-MIKAYLA ( ). You can also visit the website at [email or web address]. FOLLOWUP: - You will have an appointment at the Thoracic Surgery office in 2 weeks for a followup. [address] [place] [address], [address] [address] - Call the thoracic surgery office to schedule a followup appointment for 2 weeks. - Arrive 30 minutes prior to your appointment to have a chest xray done at [facility] (1st floor, [facility]). Go to Patient Registration to check in for the xray. - If you have any questions or concerns please call the thoracic surgery office @ ./ Care Plan Goals: To return to previous function Health Concerns: None Plan of Treatment: Patient will require visiting nurse three times per week for Pleur X care and drainage. Will F/U in office in 2 weeks for further assesment.
[2020-04-16] MEDS: FLUoxetine HCl 20 MG CAPSULE 40 MG PO (11:16)
[2020-04-16] MEDS: Famotidine 20 MG TABLET 40 MG PO (11:16)
[2020-04-16] MEDS: Levothyroxine Sodium 88 MCG TABLET PO (11:17)
[2020-04-16] MEDS: Propranolol HCL LA 60 MG CAP.SA.24H 120 MG PO (11:17)
--- NOTE | 2020-04-16 11:51 | MHC.CM.PN ---
Patient has been medically cleared for dc to home today, with VNA. A referral was made to [facility], who has been made aware of today's dc. Last IMM addressed on 04/15/20.
== END 2020-04-16 13:11 | disposition home health service (06) | DRG 168 ==
LOC: HO.SSSA 11:40 → HO.IMC 15:37
PROVIDERS: Physician Assistant; Admitting Provider Surgery; PCP Internal Medicine; Visit Provider Surgery
PROC: 0BBN4ZX Excision of Right Pleura, Percutaneous Endoscopic Approach, Diagnostic (ICD-10-PCS; principal; 2020-04-14 12:00)
DX: J90 Pleural effusion, not elsewhere classified (principal); K21.9 Gastro-esophageal reflux disease without esophagitis; Z20.822 Contact with and (suspected) exposure to COVID-19; Z88.2 Allergy status to sulfonamides; Z79.890 Hormone replacement therapy; Z79.891 Long term (current) use of opiate analgesic; Z79.899 Other long term (current) drug therapy
CPT/HCPCS: 36415; 71045; 80048; 82947; 83735; 85025; 86850; 86900; 86901; 87070; 87071; 87073; 87102; 87116; 87205; 87635; 88112; 88305; 88360; 93005; C1729; J0690; J1040; J1100; J1885; J2250; J2370; J2405; J3010

== ENCOUNTER 2020-04-22 11:24 | Outpatient (REF) | payer OTHER, SELFPAY ==
[2020-04-22 13:12] LABS: Free T4 (Free Thyroxine) 1.36 ng/dL (0.71-1.85); Thyroid Stimulating Hormone 2.58 uIU/mL (0.32-4.0)
[2020-05-05 15:33] LABS: Thyroglobulin Antibody 37 IU/mL (<=1); Thyroglobulin LC/MS/MS <0.4 ng/mL (Athyrotic: <0)
== END 2020-04-22 11:25 | disposition home or self-care (01) ==
LOC: HO.LAB 11:24
PROVIDERS: PCP Internal Medicine; Visit Provider Internal Medicine Endocrinology, Diabetes & Metabolism
DX: C73 Malignant neoplasm of thyroid gland (principal)
CPT/HCPCS: 36415; 84432; 84439; 84443; 86800

== ENCOUNTER 2020-04-30 11:14 | Outpatient (REF) | payer OTHER, SELFPAY ==
--- NOTE | ~2020-04-30 | XR_ITS ---
EXAMINATION: XR CHEST CLINICAL INFORMATION: Pleural effusion COMPARISON: Previous chest x-rays most recent 04/16/2020 TECHNIQUE: 2 views of the chest were obtained. FINDINGS: The cardiac and mediastinal contours are stable. Tunneled right chest tube appears unchanged in position. There are right hydropneumothoraces. This appears increased from most recent exam 04/16/2020. There is a partially trapped right middle and right lower lobe. There is a right chest wall subcutaneous emphysema. This appears decreased from previous exam. The left lung is clear. There is no left pleural effusion. Bony structures are unremarkable. XR/XR chest 2V IMPRESSION: Unchanged position of tunneled right chest tube. Right hydropneumothoraces increased from previous exam. Partially trapped middle and lower lobes. Decreasing right chest wall subcutaneous emphysema.
== END 2020-04-30 11:15 | disposition home or self-care (01) ==
LOC: HO.XRAY 11:14
PROVIDERS: PCP Internal Medicine; Visit Provider Surgery
DX: J90 Pleural effusion, not elsewhere classified (principal)
CPT/HCPCS: 71046; 99212

== ENCOUNTER → 2020-05-04 09:53 | Outpatient (BNV) | payer MEDICARE, OTHER, SELFPAY | PROVIDERS: PCP Internal Medicine; Referring Provider Surgery; Visit Provider Internal Medicine | DX: C50.911 Malignant neoplasm of unspecified site of right female breast (principal); J91.0 Malignant pleural effusion; M85.80 Other specified disorders of bone density and structure, unspecified site | CPT/HCPCS: 99212; 99214; G2211 ==

== ENCOUNTER → 2020-05-05 09:47 | Outpatient (BNVA) | payer OTHER, SELFPAY | PROVIDERS: PCP Internal Medicine; Referring Provider Internal Medicine; Visit Provider Internal Medicine Endocrinology, Diabetes & Metabolism | DX: C73 Malignant neoplasm of thyroid gland (principal); E89.0 Postprocedural hypothyroidism | CPT/HCPCS: Q3014 ==

== ENCOUNTER 2020-05-18 10:07 | Outpatient (REF) | payer OTHER, SELFPAY ==
--- NOTE | ~2020-05-18 | PE_ITS ---
Indication: Metastatic cancer pleural restaging EXAMINATION: Whole body PET/CT imaging. Dedicated coincidence imaging from the base of the skull to the thighs. 14 mCi F-18 deoxyglucose. Neck activity is felt to be within normal limits. Correlation with CT chest dated 02/13/[address] dated 12/18/2019 Findings; In the chest there is increased activity involving the pleura.. This is most significant at the superior medial pleural level. 9.7 SUV max. Other areas show less intense uptake however there are some focal areas of increased uptake laterally as well as in the mid to lower lung zones anteromedially. There is also some uptake in adjacent mediastinal nodes. For example a pretracheal node seen on image 175 of 813 demonstrates 3.7 SUV max. This is in the upper mediastinum to the right of midline. This node is increasing in size from previous CT of the chest Another node just above the level of the lolita to the right of midline shows uptake at 3.3 SUV max. Similar in size to previous CT Importantly the left lung shows no suspicious finding. In the upper abdomen the liver and splenic uptake are within normal limits. Normal renal activity as well as bowel activity is seen here. Normal bladder activity. No suspicious focus in the abdomen pelvis. There is no suspicious bony focus. PET/PET CT fusion skull to thigh IMPRESSION: This exam is remarkable for abnormal pleural uptake on the right as described. There is also some uptake in adjacent mediastinal nodes. Described above. There is a differential here. This may be inflammatory in etiology. Tumor of course would need to be considered. Mesothelioma would be a consideration. Importantly the left lung is showing no suspicious focus and the abdomen and pelvis showing no suspicious focus of activity.
== END 2020-05-18 10:08 | disposition home or self-care (01) ==
LOC: HO.PET 10:07
PROVIDERS: Visit Provider Internal Medicine
DX: Z13.89 Encounter for screening for other disorder (principal)

== ENCOUNTER 2020-05-24 12:20 | Outpatient (REF) | payer OTHER, SELFPAY ==
[2020-05-24 15:30] LABS: Thyroid Stimulating Hormone 68.61 uIU/mL (0.32-4.0)
[2020-06-01 10:16] LABS: Thyroglobulin Antibody 30 IU/mL (<=1); Thyroglobulin LC/MS/MS <0.4 ng/mL (Athyrotic: <0)
== END 2020-05-24 12:21 | disposition home or self-care (01) ==
LOC: HO.HMGCLDS 12:20
PROVIDERS: PCP Internal Medicine; Visit Provider Internal Medicine Endocrinology, Diabetes & Metabolism
DX: C73 Malignant neoplasm of thyroid gland (principal)
CPT/HCPCS: 36415; 84432; 84439; 84443; 86800

== ENCOUNTER 2020-05-28 10:47 | Outpatient (REF) | payer OTHER, SELFPAY ==
--- NOTE | ~2020-05-28 | XR_ITS ---
EXAMINATION: XR CHEST CLINICAL INFORMATION: Pleural effusion COMPARISON: Previous chest x-ray 04/30/2020 TECHNIQUE: 2 views of the chest were obtained. FINDINGS: There is a tunneled right chest tube that is unchanged in position. There is a small right pleural effusion. This appears decreased in size from April 2020 exam. No pneumothorax/hydropneumothorax is seen. No subcutaneous chest wall emphysema is seen. The cardiac and mediastinal contours are stable. There is subsegmental atelectasis or at the right lung base. The left lung is clear. There is no left pleural effusion. There are degenerative changes of the spine and curvature of the lower thoracic and upper lumbar spine to the right. XR/XR chest 2V IMPRESSION: Stable position of right tunneled chest tube. Small right pleural effusion decreased from previous exam.
== END 2020-05-28 10:48 | disposition home or self-care (01) ==
LOC: HO.XRAY 10:47
PROVIDERS: PCP Internal Medicine; Visit Provider Surgery
DX: C50.919 Malignant neoplasm of unspecified site of unspecified female breast (principal); J91.0 Malignant pleural effusion; Z79.811 Long term (current) use of aromatase inhibitors
CPT/HCPCS: 71046; 99214

== ENCOUNTER 2020-06-25 10:51 | Outpatient (REF) | payer OTHER, SELFPAY ==
--- NOTE | ~2020-06-25 | XR_ITS ---
EXAMINATION: XR CHEST CLINICAL INFORMATION: Follow up pleural effusion. COMPARISON: None TECHNIQUE: 2 views of the chest were obtained. FINDINGS: A large bore right chest tube is noted with its tip overlying the posterior fourth rib. There is small to moderate right pleural effusion with underlying atelectasis. There is no pneumothorax. The right upper lung and the left lung remains clear. The heart size and pulmonary vascularity is normal. XR/XR chest 2V IMPRESSION: Large bore right chest tube with loculated pleural effusion, stable compared to previous study 05/28/2020. There is underlying right lower lobe atelectasis. The left lung is clear.
== END 2020-06-25 10:52 | disposition home or self-care (01) ==
LOC: HO.XRAY 10:51
PROVIDERS: PCP Internal Medicine; Visit Provider Surgery
DX: J90 Pleural effusion, not elsewhere classified (principal); C50.919 Malignant neoplasm of unspecified site of unspecified female breast; Z79.899 Other long term (current) drug therapy
CPT/HCPCS: 99214; 71046

== ENCOUNTER → 2020-07-08 08:53 | Outpatient (BNVA) | payer OTHER, SELFPAY | PROVIDERS: Visit Provider Internal Medicine Endocrinology, Diabetes & Metabolism | DX: C73 Malignant neoplasm of thyroid gland (principal); E89.0 Postprocedural hypothyroidism | CPT/HCPCS: 99212 ==

== ENCOUNTER 2020-07-15 12:20 | Outpatient (REF) | payer OTHER, SELFPAY ==
[2020-07-15 14:34] LABS: Free T4 (Free Thyroxine) 1.21 ng/dL (0.71-1.85); Thyroid Stimulating Hormone 4.58 uIU/mL (0.32-4.0)
[2020-07-26 08:47] LABS: Thyroglobulin Antibody 53 IU/mL (<=1); Thyroglobulin LC/MS/MS <0.4 ng/mL (Athyrotic: <0)
== END 2020-07-15 12:21 | disposition home or self-care (01) ==
LOC: HO.LAB 12:20
PROVIDERS: Absent Provider Internal Medicine Endocrinology, Diabetes & Metabolism; PCP Internal Medicine; Visit Provider Internal Medicine Cardiovascular Disease
DX: R00.2 Palpitations (principal); C73 Malignant neoplasm of thyroid gland
CPT/HCPCS: 36415; 84432; 84439; 84443; 86800; 93005; 99212

== ENCOUNTER 2020-07-30 09:52 | Outpatient (REF) | payer OTHER, SELFPAY ==
--- NOTE | ~2020-07-30 | XR_ITS ---
EXAMINATION: XR CHEST CLINICAL INFORMATION: Generalized enlarged lymph nodes COMPARISON: Chest 06/25/2020 TECHNIQUE: 2 views of the chest were obtained. FINDINGS: There is moderate size right pleural effusion with underlying atelectasis. Rest of lungs are clear and expanded. The right chest tube with its tip overlying the right posterior fourth rib., Stable. Heart size and vascularity is normal. There is mild dextroscoliosis lower dorsal spine. XR/XR chest 2V IMPRESSION: Moderate size right pleural effusion with underlying atelectasis.
== END 2020-07-30 09:53 | disposition home or self-care (01) ==
LOC: HO.XRAY 09:52
PROVIDERS: PCP Internal Medicine; Visit Provider Surgery
DX: R59.1 Generalized enlarged lymph nodes (principal); J91.0 Malignant pleural effusion; C50.919 Malignant neoplasm of unspecified site of unspecified female breast; Z96.89 Presence of other specified functional implants
CPT/HCPCS: 71046

== ENCOUNTER 2020-08-11 12:58 | Outpatient (REF) | payer OTHER, SELFPAY ==
[2020-08-12 09:38] LABS: BV Int Neg Control Negative (Negative); BV Int Pos Control Positive (Positive)
[2020-08-14 09:57] LABS: HPV mRNA E6/E7 rflx Not Detected (Not Detected)
== END 2020-08-11 12:59 | disposition home or self-care (01) ==
LOC: HO.LAB 12:58
PROVIDERS: PCP Internal Medicine; Visit Provider Advanced Practice Midwife
DX: Z01.419 Encounter for gynecological examination (general) (routine) without abnormal findings (principal); Z11.51 Encounter for screening for human papillomavirus (HPV); B00.9 Herpesviral infection, unspecified; N95.1 Menopausal and female climacteric states
CPT/HCPCS: 87480; 87510; 87624; 87660; 88142

== ENCOUNTER 2020-09-03 10:33 | Outpatient (REF) | payer OTHER, SELFPAY ==
--- NOTE | ~2020-09-03 | XR_ITS ---
EXAMINATION: XR CHEST CLINICAL INFORMATION: Chest tube COMPARISON: July 30, 2020 and June 25, 2020 TECHNIQUE: 2 views of the chest were obtained. FINDINGS: There is stable appearance of the chest with right chest tube in place and no pneumothorax. There is a chronic partially loculated right pleural effusion again seen. Heart normal size. No evidence of pulmonary edema. Left hemithorax unremarkable. XR/XR chest 2V IMPRESSION: Stable appearance of the chest with right-sided chest tube and chronic pleural-parenchymal disease with partially loculated effusion.
== END 2020-09-03 10:34 | disposition home or self-care (01) ==
LOC: HO.XRAY 10:33
PROVIDERS: PCP Internal Medicine; Visit Provider Surgery
DX: C50.919 Malignant neoplasm of unspecified site of unspecified female breast (principal); J91.0 Malignant pleural effusion; Z96.89 Presence of other specified functional implants
CPT/HCPCS: 71046

== ENCOUNTER → 2020-09-09 11:35 | Outpatient (BNVA) | payer OTHER, SELFPAY | PROVIDERS: PCP Internal Medicine; Visit Provider Nurse Practitioner Family ==

== ENCOUNTER 2020-09-16 12:44 | Outpatient (REF) | payer OTHER, SELFPAY ==
[2020-09-16 14:41] LABS: Free T4 (Free Thyroxine) 1.27 ng/dL (0.71-1.85); Thyroid Stimulating Hormone 1.95 uIU/mL (0.32-4.0)
== END 2020-09-16 12:45 | disposition home or self-care (01) ==
LOC: HO.HMGCLDS 12:44
PROVIDERS: PCP Internal Medicine; Visit Provider Internal Medicine Endocrinology, Diabetes & Metabolism
DX: E89.0 Postprocedural hypothyroidism (principal)
CPT/HCPCS: 36415; 84439; 84443

== ENCOUNTER 2020-10-12 13:24 | Outpatient (REF) | payer OTHER, SELFPAY ==
--- NOTE | ~2020-10-12 | CT_ITS ---
EXAMINATION: CT CHEST WITH CONTRAST CLINICAL INFORMATION: Restaging. History of breast and thyroid cancer. COMPARISON: Previous chest CT most recent January 2020, previous PET/CT scan April 2020 and previous chest x-rays most recent 2020. TECHNIQUE: Multidetector volumetric CT imaging of the chest was obtained after the administration of 65 mL of Omnipaque 350 intravenous contrast without immediate adverse reactions. Axial MIP volume rendering provided. Sagittal and coronal reformatted images were obtained. This CT examination was performed using dose optimization techniques as appropriate, variously including the following: *Automated exposure control *Adjustment of mA and/or kV according to patient size (this includes techniques or standardized protocols for targeted exams where dose is matched to indication/reason for exam; i.e. extremities or head) *Use of iterative reconstruction technique DLP: 136 mGy-cm. FINDINGS: LUNGS: There is subsegmental atelectasis at the right lung base. The lungs are otherwise clear. MEDIASTINUM: There are small mediastinal lymph nodes. These are similar in size to previous PET/CT scan. Largest lymph node is a subcarinal lymph node measuring 0.7 x 10 mm axial image 26 series. There are small bilateral hilar lymph nodes. The heart does not appear enlarged. There is no pericardial effusion. PLEURA: There is diffuse right pleural thickening. There are high attenuation areas probably related to interval pleurodesis. There is a 0.8 x 1.8 cm pleural-based nodule adjacent to the right lower lobe spine axial image 54 series 3. There is a trace right pleural effusion. There is no left pleural effusion or pleural thickening. The previously identified right tunneled chest tube has been removed. AXILLA: There are postsurgical changes to the right breast that appear unchanged. No chest wall mass or enlarged axillary lymph nodes are seen. UPPER ABDOMEN: The liver is low in attenuation suggestive of fatty infiltration. There are gallstones in the gallbladder. OSSEOUS STRUCTURES: There are degenerative changes of the spine. CT/CT chest w con IMPRESSION: Interval decrease in the now very small right pleural effusion. Diffuse right pleural thickening and areas of increased attenuation likely related to pleurodesis. Question 0.7 x 10 mm pleural-based nodule adjacent to the lower thoracic spine and right lower lobe. Stable mediastinal and hilar lymphadenopathy.
[2020-10-12] MEDS: iohexoL 350 MG/ML 100 ML INFUS..BTL IV (14:45)
== END 2020-10-12 13:25 | disposition home or self-care (01) ==
LOC: HO.CT 13:24
PROVIDERS: PCP Internal Medicine; Visit Provider Internal Medicine
DX: C50.919 Malignant neoplasm of unspecified site of unspecified female breast (principal)
CPT/HCPCS: 71260; Q9967

== ENCOUNTER → 2020-11-02 11:18 | Outpatient (BNVA) | payer OTHER, SELFPAY | PROVIDERS: PCP Internal Medicine; Visit Provider Nurse Practitioner Family ==

== ENCOUNTER → 2020-12-03 09:25 | Outpatient (BNVA) | payer OTHER, SELFPAY | PROVIDERS: PCP Internal Medicine; Visit Provider Internal Medicine Pulmonary Disease | DX: Z01.811 Encounter for preprocedural respiratory examination (principal) | CPT/HCPCS: 99212 ==

== ENCOUNTER 2020-12-16 09:14 | Day surgery (SDC) | payer OTHER, SELFPAY ==
[2020-12-13 10:01] VITALS: BMI 27.6
--- NOTE | 2020-12-15 09:41 | HO.ANESPROP2 ---
Documented by User: Mitzi Cade NP 12/15/20 09:44 HPI - Anesthesia Eval Consult details Narrative: 65yo F for Colonoscopy Pulmo cleared at low risk for MAC or GA s/p VATS 03/2020 - found metastatic breast CA (h/o of same 2005 with chemo/rad/partial mastectomy). Had PleurX cath, but removed 08/2020 PMFSH Active Problems Active Problems: All Active Problems (Updated 12/13/20 @ 09:59 by Gillian Loaiza, RN) Pleural effusion, right (Acute) Microscopic hematuria (Acute) Dyspnea (Acute) Abnormal finding on CT scan (Acute) Palpitations (Acute) Lymphadenopathy (Acute) Encounter for general adult medical examination with abnormal findings (Acute) Encounter for preoperative pulmonary examination (Acute) Herpes simplex type 2 infection (Acute) ISH on CPAP (Acute) Metastatic breast cancer (Chronic) Pleural effusion, malignant (Acute ~2019) Chest tube in place (Acute) Primary thyroid cancer (Acute ~2005) Vaginal lesion (Acute) Shortness of breath (Acute) Post-surgical hypothyroidism (Acute ~2005) Atelectasis of right lung (Acute) Past Medical History Medical History Arthritis Atelectasis of right lung Back pain Chest tube in place Depression GERD (gastroesophageal reflux disease) Herpes simplex type 2 infection History of anxiety History of chemotherapy History of palpitations History of right breast cancer (~2005) Hx of radiation therapy Lab test negative for COVID-19 virus Metastatic breast cancer ISH on CPAP Osteopenia Pleural effusion, malignant (~2019) Post-surgical hypothyroidism (~2005) Primary thyroid cancer (~2005) Shortness of breath Vaginal lesion Family History Family History Father Alzheimer's disease HTN (hypertension) Mother Macular degeneration PVD (peripheral vascular disease) HTN (hypertension) CHF (congestive heart failure) Renal failure Maternal Grandfather CVD (cardiovascular disease) Myocardial infarction Maternal Grandmother CVD (cardiovascular disease) Stomach cancer Paternal Grandfather Black lung disease Paternal Grandmother No problems noted. Brother No problems noted. Sister No problems noted. Son No problems noted. Son No problems noted. Surgical History Surgical History History of colonoscopy (~2018) History of endoscopy (~2018) History of partial mastectomy (~2005) History of thyroidectomy (~2005) History of total right knee replacement (TKR) (~2016) Hx of chest tube placement (~2020) Social History Social History Household Members: Spouse Housing: House Are you a primary hospice home care coordinator to a significant other at home: No Do you presently have visiting nurse or other home services: No Alcohol intake: former Patient Tobacco Use Status: Former Tobacco user Quit Date: Tobacco use type: Cigarette Cigarette Packs Per Day: 1 Years Smoked: 10 yrs Are you DNR?: No Advance Directives: No Advance Directives Information Provided: No Advance Directives on File: No service: No Current occupational status: employed Meds Allergies Allergy/AdvReac Type Severity Reaction Status Date / Time Sulfa (Sulfonamide Allergy Severe lip Verified 12/13/20 10:01 Antibiotics) swelling, facial swelling sulfamethoxazole Allergy Severe FACE/LIP Verified 12/13/20 10:01 [From BACTRIM] SWELLING adhesive tape [ADHESIVE TAPE] Allergy Intermediate BLISTERS,SKIN Verified 12/13/20 10:01 SLOUGHING Home Medications Medication Instructions Recorded Confirmed Last Taken Type cholecalciferol (vitamin D3) 10 10 mcg PO BEDTIME 04/02/20 12/13/20 Unknown History mcg (400 unit) capsule fluoxetine 40 mg capsule (Prozac) 40 mg PO DAILY 04/02/20 12/13/20 12/16/20 08:45 History Exam Exam Date and Time: December 15, 2020 0941 Height,Weight and Vital Signs: Height 5 ft 3 in Weight 70.76 kg Pertinent Lab Results Pertinent Lab Results: Laboratory Tests 08/31/20 10/12/20 10/15/20 12:01 13:15 10:25 WBC 3.1 L Hgb 13.1 Hct 36.7 L Plt Count 225 Sodium 137 Potassium 4.3 Chloride 104 Carbon Dioxide 28 BUN 9 Creatinine 0.84 Assessment and Plan Assessment Anesthesia Assessment: Chart Reviewed Documented by User: Ying Bob MD 12/16/20 10:36 [facility] Past Medical History Medical History Arthritis Atelectasis of right lung Back pain Chest tube in place Depression GERD (gastroesophageal reflux disease) Herpes simplex type 2 infection History of anxiety History of chemotherapy History of palpitations History of right breast cancer (~2005) Hx of radiation therapy Lab test negative for COVID-19 virus Metastatic breast cancer ISH on CPAP Osteopenia Pleural effusion, malignant (~2019) Post-surgical hypothyroidism (~2005) Primary thyroid cancer (~2005) Shortness of breath Vaginal lesion Family History Family History Father Alzheimer's disease HTN (hypertension) Mother Macular degeneration PVD (peripheral vascular disease) HTN (hypertension) CHF (congestive heart failure) Renal failure Maternal Grandfather CVD (cardiovascular disease) Myocardial infarction Maternal Grandmother CVD (cardiovascular disease) Stomach cancer Paternal Grandfather Black lung disease Paternal Grandmother No problems noted. Brother No problems noted. Sister No problems noted. Son No problems noted. Son No problems noted. Family history of problems with anesthesia: No Surgical History Surgical History History of colonoscopy (~2018) History of endoscopy (~2018) History of partial mastectomy (~2005) History of thyroidectomy (~2005) History of total right knee replacement (TKR) (~2016) Hx of chest tube placement (~2020) History of Problems with Anesthesia: No Social History Social History Household Members: Spouse Housing: House Are you a primary hospice home care coordinator to a significant other at home: No Do you presently have visiting nurse or other home services: No Alcohol intake: former Patient Tobacco Use Status: Former Tobacco user Quit Date: Tobacco use type: Cigarette Cigarette Packs Per Day: 1 Years Smoked: 10 yrs Are you DNR?: No Advance Directives: No Advance Directives Information Provided: No Advance Directives on File: No service: No Current occupational status: employed Meds Allergies Allergy/AdvReac Type Severity Reaction Status Date / Time Sulfa (Sulfonamide Allergy Severe lip Verified 12/13/20 10:01 Antibiotics) swelling, facial swelling sulfamethoxazole Allergy Severe FACE/LIP Verified 12/13/20 10:01 [From BACTRIM] SWELLING adhesive tape [ADHESIVE TAPE] Allergy Intermediate BLISTERS,SKIN Verified 12/13/20 10:01 SLOUGHING Home Medications Medication Instructions Recorded Confirmed Last Taken Type cholecalciferol (vitamin D3) 10 10 mcg PO BEDTIME 04/02/20 12/13/20 Unknown History mcg (400 unit) capsule fluoxetine 40 mg capsule (Prozac) 40 mg PO DAILY 04/02/20 12/13/20 12/16/20 08:45 History Exam Height,Weight and Vital Signs: Height 5 ft 3 in Weight 70.76 kg Vital Signs Temp Pulse Resp BP Pulse Ox 12/16/20 09:38 97.5 F 67 16 148/71 H 97 Airway Mallampati Class: I TM Dist: >3cm Neck ROM: Full Heart: RRR Lungs: CTAB Assessment and Plan Assessment Anesthesia Assessment: Anesthesia Plan Discussed Final Anesthetic Review Family History of Problems with Anesthesia: No History of Problems with Anesthesia: No NPO: Yes ASA Class: III Final Preanesthetic Review: No Changes in Pt Med Stat, Meds/Allgs Chart Reviewed, Consent Obtained/Reviewed and Anes Risks/Benef Reviewed Patient Risk: Intermediate Procedure Risk: Low Assessment/Block/Sedation in SS: Assess/Block/Sedation-SS Anesthetic Plan Anesthetic Plan: MAC: Disposition: Standard PACU
[2020-12-16 09:38] VITALS: BP 148/71; PULSE 67; RESP 16; TEMP 36.4; O2SAT 97
[2020-12-16] MEDS: Lactated Ringers 1,000 ML 50 ML IVCONT (09:44)
--- NOTE | 2020-12-16 09:50 | P.HPSUR_ITS ---
Pre-Procedural Eval Section A Date of Service: 12/16/20 Section B Chief Complaint: screening Relevant Family History (Specify if Yes): No Relevant Social History: None (ex smoker) Present Medications: see Short Stay Collaborative assessment Medical History: Significant History (Arthritis Atelectasis of right lung Back pain Chest tube in place Depression GERD (gastroesophageal reflux disease) Herpes simplex type 2 infection History of anxiety History of chemotherapy History of palpitations History of right breast cancer (~2005) Hx of radiation therapy Lab test negative for ) History of Previous Operations: Relevant previous surgery/procedure and date(s) (History of colonoscopy (~2018) History of endoscopy (~2018) History of partial mastectomy (~2005) History of thyroidectomy (~2005) History of total right knee replacement (TKR) (~2016) Hx of chest tube placement (~2020)) Allergies: Allergies Allergy/AdvReac Type Severity Reaction Status Date / Time Sulfa (Sulfonamide Allergy Severe lip Verified 12/13/20 10:01 Antibiotics) swelling, facial swelling sulfamethoxazole Allergy Severe FACE/LIP Verified 12/13/20 10:01 [From BACTRIM] SWELLING adhesive tape [ADHESIVE TAPE] Allergy Intermediate BLISTERS,SKIN Verified 12/13/20 10:01 SLOUGHING Review of Systems Sugical H&P ROS: Negative: Constitution, Cardiovascular, Respiratory, Neurological, Psychiatric, Hem-Onc, Allergic/Immunologic, Gastrointestinal, Genitourinary, Musculoskeletal, Integumentary, Endocrine and Eyes/Ears/Nose/Throat Exam Surgical H&P Exam: Normal: HEENT, Normal: Heart, Normal: Lungs, Normal: Extrem ities, Normal: Abdomen, Normal: Skin and Normal: Neurological Plan Diagnosis/Plan: Unchanged I have reviewed the history and physical and performed a pertinent physical examination on my patient. No changes have occurred unless specified.
--- NOTE | 2020-12-16 10:14 | P.BOP_ITS ---
Brief Operative Note Date of Service: 12/16/20 Pre-op diagnosis: hx of polyps Post-op diagnosis: same Procedure: see op note Surgeon: Todd Houston MD Anesthesia: MAC Was an Sales Support Consultant used for this Procedure?: No Estimated blood loss (mL): 0 Condition: stable Disposition: PACU
--- NOTE | 2020-12-16 10:14 | W.PM.OPN ---
Operative Note Operative Note Date of Service: 12/16/20 Narrative: Operative Information Procedure Description: Colonoscopy COLONOSCOPY Instrument: Olympus variable stiffness pediatric scope 190L Colonoscopy Monitoring: Vital signs and clinical assessment, continuous EKG monitoring, Pulse oximetry, Carbon Dioxide monitoring and blood pressure monitoring were done throughout the procedure. Colon withdrawal time was 8 minutes. Procedure: The patient was placed in the left lateral decubitis position and pre-procedure medications were administered. After a digital rectal examination of the ano-rectum, the video colonoscope was inserted into the rectum and advanced through the colon to the cecum/TI. The colonoscope was slowly withdrawn in a retrograde panoramic fashion and the colon mucosa was carefully examined including a retroflexed view of the rectum. Findings and interventions are described below. Procedure Difficulty:moderate Findings: Terminal Ileum-normal Cecum:normal Ascending Colon: 4-6 mm sessile polyp seen on retroflexion and removed with forceps, another 8-9 mm sessile polyp seen on forward view and removed with forceps Transverse Colon -normal Descending Colon:normal Sigmoid Colon: moderate diverticulosis Rectum: Retroflexion with medium sized internal hemorrhoids, grade I Anorectum - normal Colon preparation: Patterson Bowel Preparation Scale Right colon; 3 Transverse colon: 3 Left colon; 3 (0 = Unprepared colon segment with mucosa not seen due to solid stool that cannot be cleared. 1 = Portion of mucosa of the colon segment seen, but other areas of the colon segment not well seen due to staining, residual stool and/or opaque liquid. 2 = Minor amount of residual staining, small fragments of stool and/or opaque liquid, but mucosa of colon segment seen well. 3 = Entire mucosa of colon segment seen well with no residual staining, small fragments of stool or opaque liquid) Impression and Post Procedure Diagnosis: polyps internal hemorrhoids diverticular disease Plan: High fiber diet leaflet Avoid straining at stool, epsom salts and sitz bath, anusol supps or cream Repeat Colonoscopy in 5 years due to polyps and history of breast cancer or earlier if clinically indicated Above findings were reviewed with the patient and relevant handouts were provided if indicated.
[2020-12-16 10:37] VITALS: BP 116/57; PULSE 71; RESP 18; TEMP 36.3; O2SAT 98
[2020-12-16 10:42] VITALS: PULSE 70; RESP 18; O2SAT 97
[2020-12-16 10:52] VITALS: BP 149/61; PULSE 71; RESP 18; O2SAT 98
== END 2020-12-16 11:31 | disposition home or self-care (01) ==
LOC: HO.SSS 09:14
PROVIDERS: PCP Internal Medicine; Visit Provider Internal Medicine Gastroenterology
PROC: 0DJD8ZZ Inspection of Lower Intestinal Tract, Via Natural or Artificial Opening Endoscopic (ICD-10-PCS; CPT 45378; principal; 2020-12-16 10:50)
DX: Z12.11 Encounter for screening for malignant neoplasm of colon (principal); D12.2 Benign neoplasm of ascending colon; K57.30 Diverticulosis of large intestine without perforation or abscess without bleeding; K64.0 First degree hemorrhoids; K58.2 Mixed irritable bowel syndrome
CPT/HCPCS: 45380; 88305

== ENCOUNTER → 2020-12-31 11:22 | Outpatient (BNVA) | payer OTHER, SELFPAY | PROVIDERS: Visit Provider Nurse Practitioner Family ==

== ENCOUNTER 2021-01-11 12:43 | Outpatient (REF) | payer OTHER, SELFPAY ==
[2021-01-11 14:26] LABS: Free T4 (Free Thyroxine) 1.19 ng/dL (0.71-1.85); Thyroid Stimulating Hormone 1.71 uIU/mL (0.32-4.0)
[2021-01-18 10:15] LABS: Thyroglobulin Antibody 49 IU/mL (<=1); Thyroglobulin LC/MS/MS <0.4 ng/mL (Athyrotic: <0)
== END 2021-01-11 12:44 | disposition home or self-care (01) ==
LOC: HO.HMGCLDS 12:43
PROVIDERS: PCP Internal Medicine; Visit Provider Nurse Practitioner Gerontology
DX: C73 Malignant neoplasm of thyroid gland (principal)
CPT/HCPCS: 36415; 84432; 84439; 84443; 86800

== ENCOUNTER 2021-01-13 10:51 | Outpatient (REF) | payer OTHER, SELFPAY ==
[2021-01-14 18:31] LABS: Thyroglobulin <0.1 ng/mL; Thyroglobulin Antibodies 44 IU/mL (< or = 1)
== END 2021-01-13 10:52 | disposition home or self-care (01) ==
LOC: HO.HMGCLDS 10:51
PROVIDERS: PCP Internal Medicine; Referring Provider Internal Medicine; Visit Provider Internal Medicine Cardiovascular Disease
DX: C73 Malignant neoplasm of thyroid gland (principal); R00.2 Palpitations
CPT/HCPCS: 36415; 84432; 86800

== ENCOUNTER 2021-01-18 09:14 | Outpatient (REF) | payer OTHER, SELFPAY ==
--- NOTE | ~2021-01-18 | PE_ITS ---
EXAMINATION: Fluorine-18 FDG PET/CT Scan CLINICAL INDICATION: Subsequent treatment management. Metastatic right breast cancer. PROCEDURE: 68 minutes following the intravenous administration of 15.5 mCi of fluorine 18 FDG, images from the base of the skull to the mid thighs were obtained using a combined PET/CT scanner with CT scan based attenuation correction. No oral contrast was administered. No intravenous contrast was administered. Transverse, coronal, sagittal, and volume reconstruction projections were obtained. The patient's blood glucose as determined by a finger stick, was 88 mg/dl immediately prior to injection. Total CT exam dose-length product 423.32 mGy-cm * These CT images were obtained using dose optimization techniques as appropriate, variously including the following: Automated exposure control * Adjustment of mA and/or kV according to patient size (this includes techniques or standardized protocols for targeted exams where dose is matched to indication/reason for exam; i.e. extremities or head) * Use of iterative reconstruction technique COMPARISON: The previous PET CT scan dated 05/18/2020 is available for comparison. CT scan of the chest dated 10/12/2020 is also available for comparison. FINDINGS: NECK AND VISUALIZED HEAD: No foci of abnormal FDG activity are noted. The distribution of FDG activity is physiological. There is no cervical lymphadenopathy. The thyroid gland is absent. THORAX: There is diffusely increased FDG activity in the right pleura, and this is most intense medially in the right lung apex with a shows SUVmax 11.8, slice 64/311. This is similar to the FDG intensity in this region on the prior 05/18/2020 PET/CT scan when this region showed SUVmax 9.9. This intense activity is associated with intensely increased CT density, probably due to prior pleurodesis. Less intensely increased FDG activity is present diffusely in the right pleura but this appears significantly less intense than on the prior 05/18/2020 study. Exhaust Emissions Inspector of the most prominent foci now present, in regions without increased density on the CT images and likely not involved with pleurodesis are focus of increased FDG activity medially in the right middle lobe showing SUVmax 3.6 versus SUVmax 4.8 on 05/18/2020 and a focus in the mid right lung anteromedially in the right middle lobe, at the level of the bifurcation of the pulmonary artery showing SUVmax 4.3 versus SUVmax 5.5 at this site on 05/18/2020. There has been almost complete resolution of previously present abnormal FDG activity in the lateral and diaphragmatic pleura which showed increased FDG on the 05/18/2020 PET/CT. There are no new foci of abnormal FDG activity in the chest. There is some chronic scarring in the right lung particularly in the base of the right middle lobe and right lower lobe and this is similar or less prominent than on the prior 05/18/[address] scan and similar to the more recent 10/12/[address] scan. No suspicious pulmonary nodules are visualized. Although pleural thickening is present on the right significant pleural fluid is not present. There is no pleural fluid on the left, pericardial fluid, or pneumothorax. There is no mediastinal, supraclavicular, or axillary lymphadenopathy. There are stable postsurgical changes in the right breast with associated weak FDG activity probably related to prior radiation therapy. ABDOMEN AND PELVIS: There are no foci of abnormal FDG activity in the abdomen or pelvis. There is mild FDG activity throughout the gastrointestinal tract without a suspicious focal component, likely physiological. There is diverticulosis without evidence of diverticulitis. The hollow viscera are otherwise unremarkable. The liver and spleen are unremarkable. A few densely calcified dependent gallbladder calculi are present, but the gallbladder is otherwise unremarkable. The kidneys, adrenal glands, and pancreas are unremarkable. There is no retroperitoneal, mesenteric, pelvic or inguinal lymphadenopathy. A small fat-containing umbilical hernia is present. The pelvic organs are unremarkable. MUSCULOSKELETAL: There is mildly increased FDG activity associated with degenerative disc disease anteriorly at the T10-T11 disc space. There are no other foci of abnormal FDG activity in the osseous structures. There are degenerative changes in the spine but no suspicious sclerotic or lytic lesions visualized. VASCULAR: Diffuse vascular calcifications including coronary are noted. PET/PET CT fusion skull to thigh IMPRESSION: 1. There has been a significant improvement in diffuse pleural FDG activity compared to the prior 05/18/[address] scan. Mild diffuse pleural FDG activity which is now present is nonspecific and may be due to some residual malignancy, but could also be inflammatory in etiology. The most intense activity medially in the right lung apex is associated with opacities that are likely due to pleurodesis. Such intense FDG activity typically persists indefinitely following pleurodesis, likely due to ongoing inflammatory changes. Coexisting malignancy at these more intense sites cannot be entirely ruled out but the findings are more consistent with postpleurodesis changes. 2. No additional abnormalities for other metastatic or malignant lesions are noted. 3. Vascular calcifications including coronary.
== END 2021-01-18 09:15 | disposition home or self-care (01) ==
LOC: HO.PET 09:14
PROVIDERS: PCP Internal Medicine; Visit Provider Internal Medicine
DX: Z13.89 Encounter for screening for other disorder (principal)

== ENCOUNTER 2021-07-04 12:02 | Outpatient (REF) | payer MEDICARE, MEDICAID, SELFPAY ==
[2021-07-04 14:32] LABS: Free T4 (Free Thyroxine) 1.26 ng/dL (0.71-1.85); Thyroid Stimulating Hormone 1.42 uIU/mL (0.32-4.0)
== END 2021-07-04 12:03 | disposition home or self-care (01) ==
LOC: HO.HMGCLDS 12:02
PROVIDERS: Visit Provider Internal Medicine Endocrinology, Diabetes & Metabolism
DX: E89.0 Postprocedural hypothyroidism (principal)
CPT/HCPCS: 36415; 84439; 84443

== ENCOUNTER → 2021-07-06 14:03 | Outpatient (BNVA) | payer MEDICARE, MEDICAID, SELFPAY | PROVIDERS: PCP Internal Medicine; Referring Provider Internal Medicine; Visit Provider Internal Medicine Cardiovascular Disease | DX: R06.00 Dyspnea, unspecified (principal); R00.2 Palpitations; R07.9 Chest pain, unspecified | CPT/HCPCS: 93005; 99212 ==

== ENCOUNTER → 2021-07-12 10:57 | Outpatient (BNVA) | payer MEDICARE, MEDICAID, SELFPAY | PROVIDERS: PCP Internal Medicine; Visit Provider Internal Medicine Endocrinology, Diabetes & Metabolism | DX: C73 Malignant neoplasm of thyroid gland (principal) | CPT/HCPCS: 99212 ==

== ENCOUNTER 2021-07-20 11:25 | Outpatient (REF) | payer MEDICARE, MEDICAID, SELFPAY ==
--- NOTE | ~2021-07-20 | MM_ITS ---
EXAMINATION: MM SCREENING DIGITAL BREAST TOMOSYNTHESIS, BILATERAL CLINICAL INFORMATION: Screening. Asymptomatic. Remote prior right lumpectomy for breast cancer, 2005 COMPARISON: Mammography: 01/28/2020, 08/28/2018, 09/12/2017, 08/20/2015 TECHNIQUE: Digital breast tomosynthesis is performed in both the craniocaudal and mediolateral oblique views along with computer-aided detection (CAD). Synthesized 2D images are generated from the tomosynthesis. FINDINGS: There are scattered areas of fibroglandular density (ACR BI-RADS breast composition Category b). Right breast has chronic post therapy changes with mild reduced breast size and stable scarring and dystrophic calcification posterior upper breast. Neither breast shows interval mass or architectural abnormality or developing density. No abnormal calcifications. No significant changes. MM/MM tomosynthesis screening BI IMPRESSION: No mammographic evidence of malignancy. Post therapy changes right breast. ASSESSMENT: BI-RADS 2: Benign RECOMMENDATION: Routine annual mammography screening. This patient's information was entered into a reminder system with a target due date for their next mammogram.
== END 2021-07-20 11:26 | disposition home or self-care (01) ==
LOC: HO.MAMMO 11:25
PROVIDERS: PCP Internal Medicine; Visit Provider Internal Medicine
DX: Z12.31 Encounter for screening mammogram for malignant neoplasm of breast (principal)
CPT/HCPCS: 77063; 77067

== ENCOUNTER 2021-07-22 13:24 | Outpatient (REF) | payer MEDICARE, MEDICAID, SELFPAY ==
[2021-07-22 16:22] LABS: Folate 6.1 ng/mL (> or = 4.0); Vitamin B12 360 pg/mL (200-900)
[2021-07-27 11:16] LABS: Vitamin D 25-OH, D2 <4 ng/mL; Vitamin D 25-OH, D3 39 ng/mL; Vitamin D 25-OH, Total 39 ng/mL (30-100)
== END 2021-07-22 13:25 | disposition home or self-care (01) ==
LOC: HO.LAB 13:24
PROVIDERS: PCP Internal Medicine; Referring Provider Internal Medicine; Visit Provider Nurse Practitioner Family
DX: K57.90 Diverticulosis of intestine, part unspecified, without perforation or abscess without bleeding (principal); K59.04 Chronic idiopathic constipation; R19.7 Diarrhea, unspecified; E55.9 Vitamin D deficiency, unspecified
CPT/HCPCS: 36415; 82306; 82607; 82746; 99212

== ENCOUNTER → 2021-08-17 13:00 | Outpatient (BNVA) | payer MEDICARE, MEDICAID, SELFPAY | PROVIDERS: PCP Internal Medicine; Visit Provider Advanced Practice Midwife | DX: Z01.419 Encounter for gynecological examination (general) (routine) without abnormal findings (principal); B00.9 Herpesviral infection, unspecified; N95.1 Menopausal and female climacteric states; N89.8 Other specified noninflammatory disorders of vagina | CPT/HCPCS: 99212 ==

== ENCOUNTER 2021-08-26 08:57 | Outpatient (REF) | payer MEDICARE, MEDICAID, SELFPAY ==
--- NOTE | ~2021-08-26 | CT_ITS ---
EXAMINATION: CT CHEST WITH CONTRAST CLINICAL INFORMATION: Metastatic breast cancer. Check response to treatment. COMPARISON: Previous chest CT September 2020 and PET/CT December 2020 TECHNIQUE: Multidetector volumetric CT imaging of the chest was obtained after the administration of 85 mL of Omnipaque 350 intravenous contrast without immediate adverse reactions. Axial MIP volume rendering provided. Sagittal and coronal reformatted images were obtained. This CT examination was performed using dose optimization techniques as appropriate, variously including the following: *Automated exposure control *Adjustment of mA and/or kV according to patient size (this includes techniques or standardized protocols for targeted exams where dose is matched to indication/reason for exam; i.e. extremities or head) *Use of iterative reconstruction technique DLP: 127 mGy-cm FINDINGS: LUNGS: There is scarring or subsegmental atelectasis at the lung bases. The lungs are otherwise clear. MEDIASTINUM: The mediastinum is normal. PLEURA: There is right pleural thickening. This appears decreased from September 2020 exam. There is a small focal area of pleural calcification. There is no right pleural effusion. There is thickening of the right diaphragmatic pleural surface. This appears decreased as well. There is no left pleural effusion or pleural thickening. AXILLA: There are stable postsurgical changes and posttreatment changes to the right breast with surgical clips and increased soft tissue adjacent to the right pectoral muscle and skin thickening. This appears unchanged. No new chest wall mass is. There are no enlarged axillary lymph nodes. UPPER ABDOMEN: See abdominal and pelvic CT report from the same day. OSSEOUS STRUCTURES: There is a lucent lesion in the right C7 vertebral body that is stable. There are degenerative changes of the spine. CT/CT chest w con IMPRESSION: Interval decrease in right-sided pleural thickening and small right pleural effusion compared to September 2020 exam. Fleischner guidelines were followed.
--- NOTE | ~2021-08-26 | CT_ITS ---
EXAMINATION: CT ABDOMEN AND PELVIS WITH CONTRAST CLINICAL INFORMATION: Metastatic breast cancer. Assess response to treatment. COMPARISON: Previous CT of the abdomen and pelvis November 2019 and PET/CT December 2020 TECHNIQUE: Multidetector volumetric images were obtained from the superior aspect of the liver through the pubic symphysis following administration 85 mL of Omnipaque 350 intravenous contrast. Sagittal and coronal reformatted images were obtained on the technologist's workstation. Oral contrast: Yes This CT examination was performed using dose optimization techniques as appropriate, variously including the following: *Automated exposure control *Adjustment of mA and/or kV according to patient size (this includes techniques or standardized protocols for targeted exams where dose is matched to indication/reason for exam; i.e. extremities or head) *Use of iterative reconstruction technique DLP: 361 mGy-cm FINDINGS: LUNG BASES: See chest CT report LIVER, GALLBLADDER, AND BILIARY TREE: The liver is normal in size, shape, and attenuation. No focal hepatic lesion or biliary ductal dilatation is present. There are small gallstones in the gallbladder. PANCREAS: Unremarkable. SPLEEN: Unremarkable. ADRENAL GLANDS: Unremarkable. KIDNEYS AND URETERS: The kidneys are normal in size, shape, and attenuation. No hydronephrosis, hydroureter, or calculi seen. No perinephric stranding. BLADDER: Not optimally distended. GASTROINTESTINAL TRACT: There is mild diverticulosis of the colon. The small and large bowel are otherwise unremarkable. The appendix is unremarkable. ABDOMINAL WALL: There is a small umbilical hernia containing fat. LYMPH NODES: Normal. VASCULAR: There is atherosclerotic disease. No aneurysm. PELVIC VISCERA: Unremarkable. OSSEOUS STRUCTURES: Stable hemangioma in the L4 vertebral body. Mild degenerative changes of the spine. CT/CT abdomen pelvis w con IMPRESSION: No evidence of metastatic disease. Gallstones. Mild diverticulosis of the colon. Fleischner guidelines were followed.
[2021-08-26] MEDS: iohexoL 300 MG/ML 100 ML INFUS..BTL 85 ML IV (10:05)
== END 2021-08-26 08:58 | disposition home or self-care (01) ==
LOC: HO.CT 08:57
PROVIDERS: PCP Internal Medicine; Visit Provider Internal Medicine
DX: C50.919 Malignant neoplasm of unspecified site of unspecified female breast (principal)
CPT/HCPCS: 71260; 74177; Q9967

== ENCOUNTER → 2021-09-22 15:13 | Outpatient (BNVA) | payer MEDICARE, MEDICAID, SELFPAY | PROVIDERS: PCP Internal Medicine; Visit Provider Nurse Practitioner Family | DX: K59.04 Chronic idiopathic constipation (principal); K21.9 Gastro-esophageal reflux disease without esophagitis; K58.2 Mixed irritable bowel syndrome | CPT/HCPCS: 99212 ==

== ENCOUNTER 2021-09-23 13:32 | Outpatient (REF) | payer MEDICARE, MEDICAID, SELFPAY ==
[2021-09-29 07:47] LABS: Transglutaminase Ab IgG <1.0 U/mL; Transglutaminase IgA <1.0 U/mL
== END 2021-09-23 13:33 | disposition home or self-care (01) ==
LOC: HO.HMGCLDS 13:32
PROVIDERS: PCP Internal Medicine; Visit Provider Nurse Practitioner Family
DX: R10.9 Unspecified abdominal pain (principal)
CPT/HCPCS: 36415; 86364

== ENCOUNTER 2021-09-28 13:02 | Outpatient (REF) | payer MEDICARE, MEDICAID, SELFPAY ==
[2021-10-03 22:17] LABS: Pancreatic Elastase-1 >500 mcg/g
== END 2021-09-28 13:03 | disposition home or self-care (01) ==
LOC: HO.HMGCLNP 13:02
PROVIDERS: PCP Internal Medicine; Visit Provider Nurse Practitioner Family
DX: R10.9 Unspecified abdominal pain (principal)
CPT/HCPCS: 82656

== ENCOUNTER → 2021-10-18 11:09 | Outpatient (BNVA) | payer MEDICARE, MEDICAID, SELFPAY | PROVIDERS: PCP Internal Medicine; Visit Provider Internal Medicine Endocrinology, Diabetes & Metabolism | DX: E89.0 Postprocedural hypothyroidism (principal); R00.2 Palpitations; Z85.850 Personal history of malignant neoplasm of thyroid; Z79.899 Other long term (current) drug therapy | CPT/HCPCS: 99212 ==

== ENCOUNTER 2021-10-21 11:44 | Outpatient (REF) | payer MEDICARE, MEDICAID, SELFPAY ==
[2021-10-21 14:14] LABS: Free T4 (Free Thyroxine) 1.31 ng/dL (0.71-1.85); Thyroid Stimulating Hormone 0.46 uIU/mL (0.32-4.0)
[2021-10-26 16:17] LABS: Metanephrine, Free 49 pg/mL (<=57); Normetanephrines, Free 117 pg/mL (<=148); Total Metanephrine, Free 166 pg/mL (<=205)
== END 2021-10-21 11:45 | disposition home or self-care (01) ==
LOC: HO.HMGCLDS 11:44
PROVIDERS: PCP Internal Medicine; Visit Provider Internal Medicine Endocrinology, Diabetes & Metabolism
DX: C73 Malignant neoplasm of thyroid gland (principal); R00.2 Palpitations
CPT/HCPCS: 36415; 83835; 84439; 84443

== ENCOUNTER → 2022-01-12 13:25 | Outpatient (BNVA) | payer OTHER, MEDICAID, SELFPAY | PROVIDERS: PCP Internal Medicine; Visit Provider Internal Medicine Cardiovascular Disease | DX: R00.2 Palpitations (principal); R07.9 Chest pain, unspecified; I10 Essential (primary) hypertension | CPT/HCPCS: 93005; 99212 ==

== ENCOUNTER → 2022-01-18 07:19 | Outpatient (REF) | payer OTHER, MEDICAID, SELFPAY ==
--- NOTE | ~2022-01-18 | CT_ITS ---
EXAMINATION: CT CHEST WITH CONTRAST CLINICAL INFORMATION: Metastatic pleural effusion. Palpitations. COMPARISON: Previous chest CT scans most recent August 2021. TECHNIQUE: Multidetector volumetric CT imaging of the chest was obtained after the administration of 65 mL of Omnipaque 350 intravenous contrast without immediate adverse reactions. Axial MIP volume rendering provided. Sagittal and coronal reformatted images were obtained. This CT examination was performed using dose optimization techniques as appropriate, variously including the following: *Automated exposure control *Adjustment of mA and/or kV according to patient size (this includes techniques or standardized protocols for targeted exams where dose is matched to indication/reason for exam; i.e. extremities or head) *Use of iterative reconstruction technique DLP: 108 mGy-cm. FINDINGS: PRESS MACHINE FEEDER: Postsurgical changes to the right breast. LUNGS: There are increased peripheral reticular markings right anterior upper lobe and middle lobe probably related to previous chest wall radiation. There is a 3 mm left lower lobe nodule axial image 131 series 5 that is stable. There is there are several new semisolid small 2 to 3 mm left lower lobe nodules for example axial image 55126 and 134 series 5. There are new clustered peribronchial nodules, increased peribronchial attenuation in the peripheral or subpleural right lower lobe. Both these areas are questionable for airways disease. There is chronic scarring or subsegmental atelectasis at the lung bases, right greater than left, that is stable. MEDIASTINUM: The mediastinum is normal. CORONARY ARTERY CALCIFICATION: Mild. PLEURA: There is mild pleural thickening at the right lung base. This is similar to previous exams. No pleural effusion. AXILLA: Postsurgical changes to the right breast that are stable. No chest wall mass or enlarged axillary lymph nodes. UPPER ABDOMEN: Fatty liver. Atherosclerotic disease. Gallstones. OSSEOUS STRUCTURES: Degenerative changes of the spine. Mild curvature of the proximal lumbar spine to the right. CT/CT chest w IV con IMPRESSION: New clustered nodules in both lower lobes representing an infectious process/airways disease. Stable mild right pleural thickening and no pleural effusion. Fleischner guidelines were followed.
--- NOTE | 2022-01-18 07:22 | CA_ITS ---
Transthoracic Echocardiogram Patient (Last, First, Middle): Flaca Angel, Gender: Female Date of : 1955 Age: 66 Procedure Date: 01/18/2022 Procedure Type: Transthoracic Echocardiogram Location: OP Height: 160.02 cm Weight: 70.31 kg BSA: 1.74 m2 Heart Rate: 64 bpm BP: 130 / 80 mmHg Computer Systems Software Engineer: TL Redman MD: Shaun Eubanks MD Film Rental Clerk: Shaun Eubanks MD Symptoms: R00.2 - Palpitations Study Quality: Fair ECG Rhythm: Sinus Conclusions: - Normal left ventricular size, thickness, and systolic function. The visually estimated ejection fraction is between 55-60%. - Spectral Doppler is indicative of a pseudonormal filling pattern. E/E prime ratio is between 8 and 15 consistent with indeterminate filling pressures. - The basal inferior segment is akinetic. - Normal right ventricular cavity size. There is borderline right ventricular systolic function. 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 There is no evidence of interatrial shunt by color Doppler. Findings Left Ventricle Normal left ventricular size, thickness, and systolic function. The visually estimated ejection fraction is between 55-60%. There is evidence of regional wall motion abnormalities. Abnormal diastolic function is noted. Spectral Doppler is indicative of a pseudonormal filling pattern. E/E prime ratio is between 8 and 15 consistent with indeterminate filling pressures. Wall Motion Rest Echo Findings The basal inferior segment is akinetic. Right Ventricle Normal right ventricular cavity size. There is borderline right ventricular systolic function. Atria Both atria are normal in size. 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 There is no evidence of interatrial shunt by color Doppler. Aortic Valve Normal aortic valve structure and function. There is no aortic valve stenosis. There is no aortic valve regurgitation. Mitral Valve The mitral valve appears normal. There is trace mitral valve regurgitation. There is no mitral valve stenosis. Pulmonic Valve The pulmonic valve is likely normal. Tricuspid Valve Normal tricuspid valve structure. There is trace tricuspid valve regurgitation. Tricuspid regurgitation envelope is inadequate for calculation of right ventricular systolic pressure. Normal right atrial pressure. Great Vessels All visible segments of the aorta are normal in size. Venous The inferior vena cava is normal in size and collapses greater than 50% with inspiration. Pericardium/Pleural There is no evidence of pericardial effusion. Prior Study Comparison Changes noted compared to prior study dated: 03/22/2020. Basal inferior wall akinesis, borderline RV function. Measurements 2D Linear Measurements IVSd: 0.85 0.6-0.9/0.6-1.0 cm LVIDd: 4.16 3.9-5.3/4.2-5.9 cm LVIDd Index: 2.39 2.4-3.2/2.2-3.1 cm/m2 LVIDs: 2.55 2.0-3.6 cm LVPWd: 0.92 0.7-1.1 cm LA Diam: 3.70 2.7-3.8/3.0-4.0 cm LAIDs Index: 2.13 1.5-2.3 cm/m2 LV Mass: 141.78 67-162/88-224 g LV Mass Index: 81.48 43-95/49-115 g/m2 LVOT Diam: 1.80 3.0+(-)1.3 cm 2D Systolic Function EF 4C: 50.00 >55% EF 2C: 59.70 >55% EF BiP: 54.70 >55% Mitral Valve MV Pk E: 0.98 MV PK A: 0.69 MV Decel Time: 170.00 E/A: 1.40 E'Lateral: 8.03 E'Medial: 6.73 E/E' Med: 14.50 E/E' Lat: 12.20 PHT: 50.00 MVA PHT: 4.40 Decel Sheridan: 5.77 Aortic Valve AoV Pk Dante: 1.52 AoV Mn Dante: 1.10 AoV VTI: 0.40 AoV Pk Grad: 9.00 Aov Mn Grad: 6.00 FANNY Cont.VTI: 1.52 LVOT LVOT Pk Dante: 0.93 LVOT Mn Dante: 0.74 LVOT VTI: 0.24 LVOT Pk Grad: 3.00 LVOT Mn Grad: 2.00 LVOT Diam: 1.80 LVOT Area: 2.54 Diastolic Function MV Pk E: 0.98 MV Pk A: 0.69 E/A: 1.40 E'Medial: 6.73 E/E' Med: 14.50 E' Laterial: 8.03 E/E' Lat: 12.20 Right Ventricle TAPSE (mm): 23.20 TVS' Dante: 8.51 Tricuspid Valve RA Press: 3.00 Great Vessels Aorta Sinus of Valsalva: 2.60 2.0-3.5 cm Ao Asc: 2.90 2.1-3.4 cm Pulmonary Valve PV Pk Dante: 0.76 Peak PV Grad: 2.00 Updated in Other Vendor System with Status of Final Shaun Eubanks MD electronically signed on 01/20/2022 12:09:07 PM with status of Final
[2022-01-18] MEDS: iohexoL 350 MG/ML 75 ML INFUS..BTL 65 ML IV (10:43)
== END ==
LOC: HO.CARD 07:19
PROVIDERS: PCP Internal Medicine; Visit Provider Internal Medicine Cardiovascular Disease
DX: R00.2 Palpitations (principal); C50.919 Malignant neoplasm of unspecified site of unspecified female breast
CPT/HCPCS: 71260; 93306; Q9967

== ENCOUNTER 2022-06-26 11:29 | Outpatient (REF) | payer OTHER, MEDICAID, SELFPAY ==
[2022-06-26 14:46] LABS: Free T4 (Free Thyroxine) 1.33 ng/dL (0.71-1.85); Thyroid Stimulating Hormone 0.43 uIU/mL (0.32-4.0)
[2022-06-27 17:33] LABS: Thyroglobulin <0.1 ng/mL
[2022-06-27 21:48] LABS: Thyroglobulin Antibodies 29 IU/mL (< or = 1)
== END 2022-06-26 11:30 | disposition home or self-care (01) ==
LOC: HO.HMGCLDS 11:29
PROVIDERS: PCP Internal Medicine; Visit Provider Internal Medicine Endocrinology, Diabetes & Metabolism
DX: C73 Malignant neoplasm of thyroid gland (principal)
CPT/HCPCS: 36415; 84432; 84439; 84443; 86800

== ENCOUNTER → 2022-06-27 11:26 | Outpatient (BNVA) | payer OTHER, MEDICAID, SELFPAY | PROVIDERS: PCP Internal Medicine; Visit Provider Internal Medicine Endocrinology, Diabetes & Metabolism | DX: C73 Malignant neoplasm of thyroid gland (principal); R00.2 Palpitations | CPT/HCPCS: 99212 ==

== ENCOUNTER 2022-07-18 09:49 | Outpatient (REF) | payer OTHER, MEDICAID, SELFPAY ==
--- NOTE | ~2022-07-18 | US_ITS ---
EXAMINATION: US SOFT TISSUE NECK CLINICAL INFORMATION: History of thyroid cancer. Rule out persistence or recurrence. COMPARISON: Ultrasound soft tissue neck 06/13/2017 TECHNIQUE: Ultrasound of the neck soft tissues is performed with high- frequency summers-scale imaging and color Doppler. FINDINGS: THYROID BED: Prior thyroidectomy. No residual thyroid tissue demonstrated in the thyroid bed. No cystic or solid nodules demonstrated in the thyroid bed. RIGHT NECK SOFT TISSUES: Scattered architecturally normal nodes are present. The nodes show normal fatty hilus, normal cortical thickness, and no cystic change or calcification. No abnormal color flow. The largest nodes are as follows: Level 1A: 0.5 x 0.4 x 0.4 cm. Normal bobby architecture. Level 2: 1.2 x 0.7 x 0.7 cm. Normal bobby architecture. Level 5A: 2.0 x 0.6 x 1.2 cm. Normal bobby architecture. LEFT NECK SOFT TISSUES: Scattered architecturally normal nodes are present. The nodes show normal fatty hilus, normal cortical thickness, and no cystic change or calcification. No abnormal color flow. The largest nodes are as follows: Level 2: 1.0 x 0.9 x 1.4 cm. Normal bobby architecture. Level 3: 1.6 x 0.4 x 0.8 cm. Normal bobby architecture. US/US soft tiss head and/or neck IMPRESSION: 1. Bilateral cervical nodes are seen which do not measure pathologically enlarged and demonstrate normal hilar architecture. 2. If clinically indicated further evaluation of the neck soft tissues and nodes may be performed with CT soft tissue neck with intravenous contrast.
== END 2022-07-18 09:50 | disposition home or self-care (01) ==
LOC: HO.US 09:49
PROVIDERS: PCP Internal Medicine; Visit Provider Internal Medicine Endocrinology, Diabetes & Metabolism
DX: C73 Malignant neoplasm of thyroid gland (principal)
CPT/HCPCS: 76536

== ENCOUNTER 2022-08-02 13:15 | Outpatient (REF) | payer OTHER, MEDICAID, SELFPAY ==
--- NOTE | ~2022-08-02 | MM_ITS ---
EXAMINATION: MM SCREENING DIGITAL BREAST TOMOSYNTHESIS, BILATERAL CLINICAL INFORMATION: Screening. Asymptomatic. Right lumpectomy for breast cancer, 2006. COMPARISON: Mammography: 07/20/2021, 01/28/2020, 08/28/2018, 09/12/2017 TECHNIQUE: Digital breast tomosynthesis is performed in both the craniocaudal and mediolateral oblique views along with computer-aided detection (CAD). Synthesized 2D images are generated from the tomosynthesis. Additional right exaggerated view is provided. FINDINGS: There are scattered areas of fibroglandular density (ACR BI-RADS breast composition Category b). Parenchymal pattern is similar to prior studies and there is no developing density or interval architectural abnormality. There are no significant masses, abnormal calcifications, or other abnormalities. Again, there are post therapy changes on the right with reduced breast size and old scarring with benign dystrophic calcification within the scar posterior upper breast. The axilla are unremarkable. There are no significant changes from prior studies. MM/MM tomosynthesis screening BI IMPRESSION: -No mammographic evidence of malignancy. -Post therapy changes right breast, stable. ASSESSMENT: BI-RADS 2: Benign RECOMMENDATION: Routine annual mammography screening. This patient's information was entered into a reminder system with a target due date for their next mammogram.
== END 2022-08-02 13:16 | disposition home or self-care (01) ==
LOC: HO.MAMMO 13:15
PROVIDERS: PCP Internal Medicine; Visit Provider Internal Medicine
DX: Z12.31 Encounter for screening mammogram for malignant neoplasm of breast (principal)
CPT/HCPCS: 77063; 77067

== ENCOUNTER 2022-08-23 13:07 | Outpatient (REF) | payer OTHER, MEDICAID, SELFPAY ==
[2022-08-24 08:55] LABS: BV Int Neg Control Negative (Negative); BV Int Pos Control Positive (Positive)
== END 2022-08-23 13:08 | disposition home or self-care (01) ==
LOC: HO.LAB 13:07
PROVIDERS: PCP Internal Medicine; Visit Provider Advanced Practice Midwife
DX: Z01.419 Encounter for gynecological examination (general) (routine) without abnormal findings (principal); N89.8 Other specified noninflammatory disorders of vagina; Z20.2 Contact with and (suspected) exposure to infections with a predominantly sexual mode of transmission
CPT/HCPCS: 87480; 87510; 87660

== ENCOUNTER → 2022-09-14 11:22 | Outpatient (BNVA) | payer OTHER, SELFPAY | PROVIDERS: PCP Internal Medicine; Referring Provider Internal Medicine; Visit Provider Internal Medicine Cardiovascular Disease | DX: R07.9 Chest pain, unspecified (principal); R06.09 Other forms of dyspnea; I10 Essential (primary) hypertension | CPT/HCPCS: 93005; 99212 ==

== ENCOUNTER 2022-10-19 11:03 | Outpatient (REF) | payer OTHER, SELFPAY ==
[2022-10-19 14:14] LABS: Anion Gap 14 (12-20); Blood Urea Nitrogen 8 mg/dL (9-16); Calcium 9.1 mg/dL (8.4-10.2); Carbon Dioxide 25 mmol/L (22-29); Chloride 102 mmol/L (96-108); Estimated Glomerular Filt Rate > 60; Glucose Random 101 mg/dL (60-115); Potassium 3.9 mmol/L (3.3-5.1); Sodium 137 mmol/L (135-145)
== END 2022-10-19 11:04 | disposition home or self-care (01) ==
LOC: HO.HMGCLDS 11:03
PROVIDERS: PCP Internal Medicine; Visit Provider Internal Medicine Cardiovascular Disease
DX: I10 Essential (primary) hypertension (principal); R06.09 Other forms of dyspnea
CPT/HCPCS: 36415; 80048

== ENCOUNTER 2022-11-14 13:53 | Outpatient (AMB) | payer OTHER, SELFPAY ==
--- NOTE | 2022-11-14 13:54 | MHC.PC.OV ---
Vital Signs 11/14/22 13:55 Height 5 ft 3 in Weight 160 lb BMI 28.3 BP 120/62 Blood Pressure Location Lt brachial Position Sitting Pulse 72 Pulse Source Pulse Oximeter Pulse Oximetry (%) 98 Oxygen Delivery Method Room Air Intake Visit Reasons: Rt eye/11-28/[facility] Intake Note: Pt is here today for pre op visit. Pt is having cataract surgery on 11/28/22 R eye and 12/12/[address] Mendez. Allergies Sulfa (Sulfonamide Antibiotics) Allergy (Severe, Verified 11/14/22 13:57) lip swelling, facial swelling sulfamethoxazole [From BACTRIM] Allergy (Severe, Verified 11/14/22 13:57) FACE/LIP SWELLING adhesive tape [ADHESIVE TAPE] Allergy (Intermediate, Verified 11/14/22 13:57) BLISTERS,SKIN SLOUGHING amlodipine Adverse Reaction (Intermediate, Verified 11/14/22 14:22) Palpitations Medication List - Last Reconciled 11/14/22 by Celsa Lyn MD atorvastatin 40 mg PO BEDTIME 90 days bisacodyl (Woman's Laxative (bisacodyl)) 10 mg PO BEDTIME PRN chlorhexidine gluconate 0.12% 15 mL buccal DAILY cholecalciferol (vitamin D3) 10 mcg PO BEDTIME CPAP As directed fluoride (sodium) 1.1% (Denta 5000 Plus) 1 appl PO BID fluoxetine 20 mg PO QAM hydrocortisone 2.5% (Anusol-HC) 1 appl [place] QID PRN letrozole 2.5 mg PO DAILY levothyroxine 88 mcg PO DAILY ondansetron 4 mg PO Q6H PRN palbociclib 125 mg PO DAILY propranolol 60 mg PO BID 90 days valacyclovir (Valtrex) 1,000 mg PO DAILY Tobacco use date assessed: 11/14/22 Fall risk assessment: 2 + Falls in past year Last assessed Fall Risk: 11/14/22 Dental Screening Dental Screen Date: 11/14/22 Did you have a dental visit in the last 12 months?: Yes Did you have a dental problem in the last 6 months where you did not have access to dental care?: No Was dental information given to patient?: Patient has dentist HPI Rt [facility]/11-28/[facility] HPI Details Patient presents for preop for cataract surgery. Metastatic breast CA is controlled on current treatment patient follows up with Oncology regularly. Patient follows up with Endocrinology for history of papillary thyroid CA. she follows up with Cardiology for chronic palpitations controlled on propranolol. [facility] Medical History Arthritis Atelectasis of right lung Back pain Chest tube in place Depression GERD (gastroesophageal reflux disease) Herpes simplex type 2 infection History of anxiety History of chemotherapy History of palpitations History of right breast cancer (~2005) Hx of radiation therapy Lab test negative for COVID-19 virus Metastatic breast cancer ISH on CPAP Osteopenia Pleural effusion, malignant (~2019) Post-surgical hypothyroidism (~2005) Primary thyroid cancer (~2005) Shortness of breath Vaginal lesion Surgical History History of colonoscopy (~2018) History of endoscopy (~2018) History of partial mastectomy (~2005) History of thyroidectomy (~2005) History of total right knee replacement (TKR) (~2016) Hx of chest tube placement (~2020) Status post fine needle aspiration Family History Father Alzheimer's disease HTN (hypertension) Mother CHF (congestive heart failure) Renal failure PVD (peripheral vascular disease) HTN (hypertension) Macular degeneration Maternal Grandfather CVD (cardiovascular disease) Myocardial infarction Maternal Grandmother Stomach cancer CVD (cardiovascular disease) Paternal Grandfather Black lung disease Paternal Grandmother No problems noted. Brother Substance use disorder Sister No problems noted. Son No problems noted. Son No problems noted. Family/Other History of breast cancer Maternal Uncle Colon cancer Social History Household Members: Spouse Housing: House Are you a primary district manager primary care sales to a significant other at home: No Do you presently have visiting nurse or other home services: No Alcohol intake: former Patient Tobacco Use Status: Former Tobacco user Quit Date: Tobacco use type: Cigarette Cigarette Packs Per Day: 1 Years Smoked: 10 yrs service: No Current occupational status: retired Sexual orientation: Straight/Heterosexual Gender identity: Female Cognitive needs: No Hearing needs: No Vision needs: Yes Review of Systems Const All systems reviewed & are unremarkable except as noted in HPI and below Reports no additional complaints Eyes Reports no additional complaints ENT Reports no additional complaints Resp Reports no additional complaints GI Reports no additional complaints Reports no additional complaints Physical exam (Primary Care) Vital Signs: Last Vital Signs Pulse 72 11/14/22 13:55 BP 120/62 11/14/22 13:55 Pulse Ox 98 11/14/22 13:55 Oxygen Delivery Method Room Air 11/14/22 13:55 BMI result Body Mass Index 28.3 Tobacco/Smoking Status: Tobacco use Status Tobacco use date assessed 11/14/22 11/14/22 13:59 Patient Tobacco Use Status Former Tobacco user 11/14/22 13:59 Tobacco use type Cigarette 11/14/22 13:59 Const General: no acute distress HENMT General nose exam: Normal external nose present Mouth: Normal oral and palatal mucosa present Eyes General: appearance normal, both eyes and all related structures Neck Neck: Yes no lymphadenopathy and Yes supple Resp Effort & Inspection: normal respiratory effort Auscultation: clear to auscultation bilaterally Cardio Rhythm: regular rhythm Heart sounds: S1 normal heart sound present and S2 normal heart sound present GI Inspection: Yes normal to inspection Palpation (GI): Soft to palpation Percussion: Yes normal to percussion Auscultation: normal bowel sounds Assessment and Plan Assessment & Plan (1) Cataract: Code(s): H26.9 - Unspecified cataract Plan: Patient is medically clear for cataract surgery (2) Hyperlipidemia: Code(s): E78.5 - Hyperlipidemia, unspecified Plan: Continue statin (3) Essential hypertension: Code(s): I10 - Essential (primary) hypertension Plan: Continue propranolol (4) Palpitations: Comment: On propranolol, follow-up with Cardiology Code(s): R00.2 - Palpitations (5) Metastatic breast cancer: Comment: ([facility] Rt breast s/p lumpectomy/chemo/radiation in 2006 - now has malignant right pleural effusion) Code(s): C50.919 - Malignant neoplasm of unspecified site of unspecified female breast Plan: Follow-up with oncology Medications: Discontinued palbociclib administer on days 1 through 21 of a 28-day treatment cycle 125 mg PO DAILY 21 caps 6RF Coding Level of Care Code Est Pt Level 4 (31586) Diagnoses Cataract H26.9 Hyperlipidemia E78.5 Essential hypertension I10 Palpitations R00.2 Metastatic breast cancer C50.919
[2022-11-14 13:55] VITALS: BP 120/62; PULSE 72; O2SAT 98; BMI 28.3
== END 2022-11-14 14:44 | disposition home or self-care (01) ==
PROVIDERS: PCP Internal Medicine; Visit Provider Internal Medicine
DX: I10 Essential (primary) hypertension (principal); C50.919 Malignant neoplasm of unspecified site of unspecified female breast; H26.9 Unspecified cataract; E78.5 Hyperlipidemia, unspecified; R00.2 Palpitations
CPT/HCPCS: 99214

== ENCOUNTER 2022-12-08 10:48 | Outpatient (REF) | payer OTHER, SELFPAY ==
--- NOTE | ~2022-12-08 | MM_ITS ---
EXAMINATION: BONE DENSITOMETRY CLINICAL INDICATION: Age-related osteoporosis without current pathological fracture. COMPARISON: Previous BD dated 06/22/2017 and baseline BD dated 05/13/2015. TECHNIQUE: Using a [employer] DXA System (software version: 13.1) manufactured by [employer], dual-energy x-ray absorptiometry was performed of the lumbar spine and left hip. The images are of good technical quality. Summary results are attached. FINDINGS: LEFT FEMUR, NECK: Current: BMD 0.800 g/cm2, Z-score -0.3, T-score -1.7, osteopenia. Prior: BMD 0.780 g/cm2. Baseline: BMD 0.810 g/cm2. LEFT FEMUR, TOTAL: Current: BMD 0.826 g/cm2, Z-score -0.3, T-score -1.4, osteopenia, 4.2% decrease from previous, 4.0% decrease from baseline (<5% change is not significant). Prior: BMD 0.862 g/cm2. Baseline: BMD 0.860 g/cm2. AP SPINE L1-L4: Current: BMD 1.031 g/cm2, Z-score 0.1, T-score -1.2, osteopenia, 6.2% decrease from previous, 1.3% decrease from baseline (<5% change is not significant). Prior: BMD 1.099 g/cm2. Baseline: BMD 1.045 g/cm2. IDENTIFIED RISK FACTORS: Menopause, secondary osteoporosis. HISTORY OF FRACTURE: None listed. MEDICATIONS: Vitamin D. MM/XR DEXA axial skeleton IMPRESSION: 1. DIAGNOSIS: Osteopenia based on the lowest T-score value of -1.7 in the femoral neck applying World Health Organization criteria. 2. 10-YEAR FRACTURE RISK PREDICTION, FRAX: Major osteoporotic fracture (clinical spine, forearm, hip or shoulder) 9.9%. Hip fracture 1.3%. 3. Treatment Recommendations: NOF guidelines recommend consideration for treatment in postmenopausal women and men age 50 and older presenting with the following: -A hip or vertebral (clinical or morphometric) fracture. -T-score less than or equal to -2.5 at the femoral neck or spine after appropriate evaluation to exclude secondary causes. -Low bone mass at the hip or spine and a 10-year fracture probability by FRAX of greater than or equal to 3% for hip fracture or greater than or equal to 20% for major osteoporotic fracture based on the [place] adapted WHO algorithm. 4. Other Recommendations: All treatment decisions require clinical judgment and consideration of individual patient factors, including patient preferences, comorbidities, previous drug use, risk factors not captured in the FRAX model (e.g. frailty, falls, vitamin D deficiency, increased bone turnover, interval significant decline in bone density) and possible under or overestimation of fracture risk by FRAX. Additional medical evaluation for secondary cause of low bone mineral density may be appropriate. FUTURE SCAN RECOMMENDATION: People with diagnosed cases of osteoporosis or at high risk for fracture should have regular bone mineral density tests. For patients eligible for Medicare, routine testing is allowed once every 2 years. The testing frequency can be increased to one year for patients who have rapidly progressing disease, those who are receiving or discontinuing medical therapy to restore bone mass, or have additional risk factors.
== END 2022-12-08 10:49 | disposition home or self-care (01) ==
LOC: HO.MAMMO 10:48
PROVIDERS: PCP Internal Medicine; Visit Provider Internal Medicine
DX: Z13.820 Encounter for screening for osteoporosis (principal); M81.0 Age-related osteoporosis without current pathological fracture; Z78.0 Asymptomatic menopausal state
CPT/HCPCS: 77080

== ENCOUNTER → 2022-12-08 11:00 | Outpatient (BNV) | payer OTHER, SELFPAY | PROVIDERS: PCP Internal Medicine; Visit Provider Radiology Diagnostic Radiology | DX: M85.89 Other specified disorders of bone density and structure, multiple sites (principal) | CPT/HCPCS: 77080 ==

== ENCOUNTER 2022-12-19 12:14 | Outpatient (REF) | payer OTHER, SELFPAY ==
[2022-12-19 14:15] LABS: Free T4 (Free Thyroxine) 1.14 ng/dL (0.71-1.85); Thyroid Stimulating Hormone 0.42 uIU/mL (0.32-4.0)
[2022-12-21 05:48] LABS: Thyroglobulin Antibodies 31 IU/mL (< or = 1)
[2022-12-30 23:08] LABS: Thyroglobulin Antibody 30 IU/mL (<=1); Thyroglobulin LC/MS/MS <0.4 ng/mL (Athyrotic: <0)
== END 2022-12-19 12:15 | disposition home or self-care (01) ==
LOC: HO.HMGCLDS 12:14
PROVIDERS: PCP Internal Medicine; Visit Provider Internal Medicine Endocrinology, Diabetes & Metabolism
DX: C73 Malignant neoplasm of thyroid gland (principal)
CPT/HCPCS: 36415; 84432; 84439; 84443; 86800

== ENCOUNTER 2022-12-26 11:19 | Outpatient (AMB) | payer OTHER, MEDICAID, SELFPAY ==
[2022-12-26 11:23] VITALS: BP 132/86; PULSE 72; BMI 28.7
--- NOTE | 2022-12-26 11:23 | MHC.OFFVIS ---
Intake Vital Signs 12/26/22 11:23 Height 5 ft 3 in Weight 162 lb 4.163 oz BMI 28.7 BP 132/86 Blood Pressure Location Lt brachial Position Sitting Pulse 72 Pulse Source Pulse Oximeter Intake Visit Reasons: f/u thyroid cancer/LVM Intake Note: Patient present today for thyroid cancer follow up visit. Electrical Appliance Servicer Required: No Accompanied by: Self / Same As Patient Allergies Sulfa (Sulfonamide Antibiotics) Allergy (Severe, Verified 12/26/22 11:24) lip swelling, facial swelling sulfamethoxazole [From BACTRIM] Allergy (Severe, Verified 12/26/22 11:24) FACE/LIP SWELLING adhesive tape [ADHESIVE TAPE] Allergy (Intermediate, Verified 12/26/22 11:24) BLISTERS,SKIN SLOUGHING amlodipine Adverse Reaction (Intermediate, Verified 12/26/22 11:24) Palpitations Medication List - Last Reconciled 12/26/22 by Raul Perez MD atorvastatin 40 mg PO BEDTIME 90 days bisacodyl (Woman's Laxative (bisacodyl)) 10 mg PO BEDTIME PRN chlorhexidine gluconate 0.12% 15 mL buccal DAILY cholecalciferol (vitamin D3) 10 mcg PO BEDTIME CPAP As directed fluoride (sodium) 1.1% (Denta 5000 Plus) 1 appl PO BID fluoxetine 20 mg PO QAM hydrocortisone 2.5% (Anusol-HC) 1 appl [place] QID PRN letrozole 2.5 mg PO DAILY levothyroxine 88 mcg PO DAILY ondansetron 4 mg PO Q6H PRN palbociclib 125 mg PO DAILY propranolol 60 mg PO BID 90 days valacyclovir (Valtrex) 1,000 mg PO DAILY HPI HPI Comments History of Present Illness Details 67 year-old female, today for follow-up, for postsurgical hypothyroidism and papillary thyroid cancer . Was also followed by Dr. Awad in [place] She feels well. Her pleural effucion is significantly smaller. She is on treatment for her metastatic breast cancer. She had withdrawal whole body scan on 06/04/2020, her TSH was 68.6 mIU/mL, thyroglobulin level was less than 0.4 ng/mL, thyroglobulin antibodies was 30 IU/mL. 48 hours uptake was 0.06%. There was no evidence of iodine avid thyroid cancer recurrence or distant metastatic disease. She is on levothyroxine 88 mcg daily. She is 100% adherent and she has a good method of administration. Attempted FNA of the right side residual tissue with non diagnostic on 06/20/2018. She denies palpitations, she lost some weight. She has PMH of hyperlipidemia, vitamin D deficiency, osteopenia, history of breast CA status post partial mastectomy with radiation therapy and chemotherapy and thyroid carcinoma status post total thyroidectomy, radioactive iodine ablation with result in hypothyroidism. She has PTC with incomplete biochemical response without evidence of structural disease. She has postive Anti TG antibodies, with negative TG. 12/14/2017 Thyrogen stimulated whole body scan at [facility] Showed no evidence of iodine avid metastatic disease., TSH > 100 TG antiboies 85, peak TG antibodies 68 with TSH 40 miu/ml. She was Diagnosed with PTC on 06/16/2005, Thyroid cancer stage 1 , (T 1 (size 1.6 cm ), N x, M 0), treated with surgery (02/07/06) by , DAWSON (107.7 mCi) 04/13/06, Post ablation scan showed uptake in thyroid bed and salivary glands. No distant metastasis. She the histology report for the Thyroidectomy on 02/07/2006. Tumor was left side size 1.6 cm papillary carcinoma, with intra lobar metastasis , there was a small foci of PTC in the left lower pole also size not described in the report. margins were < 1 mm but clear. 2 parathyroid glands were removed. She had US on 11/18/10 no residual tissue , had a benign LN near left parotid gland 9 x 7 x 5 mm benign appearance. She had US of neck on 06/16/17 , the report was no residual tissue and no LN, but the images I reviewed she has some density in the right thyroid bed 0.6 x 2.4 x 0.6 cm, also small amount of tissue over the right half of the isthmus 0.3 cm. US 11/18/10: no residual tissue, no lymph nodes in neck, only LYMPH node in left parotid gland. US 04/09/13: right LN lateral to submandibular gland 2 x 1.4 x 0.6 cm with a fat notch . Another lymph node on the right side by the common carotid artery measuring 9 mm. There is another nodule on the left submandibular gland and measuring 1.6 cm. Also a small nodule at the submandibular gland measuring 1.3 cm. 01/13/16 Thyrogen stimulated whole body scan that was done at [facility] . The TSH increased to 150 LA U./ml. The thyroglobulin level was undetectable < 0.2 with elevated anti thyroglobulin antibodies at 179.7. scan showed increase uptake in thyroid bed anterior to the trachea 0.1 %. US thyroid bed 02/10/16 showed multiple benign looking LN, also a hypoechoic area in the thyroid bed, FNA was performed, with no evidence any follicular cells negative for malignancy. Her trended TG is always low but has positive antibodies. 06/20/18 US performed By pa She has small amount of residual tissue. The size of the right side residual tissue is 0.97 x 1.9 x 0.7 cm. There is a right side Level III lymph node lateral to carotid artery size 0.6 cm. There is another lymph node right side level III above carotid artery also 0.6 cm, both lymph nodes present normal corticomedullary differentiation. Normal fatty hilum, both looks benign. Both Unchanged from last year ultrasound. There is a left side level II lymph node above carotid artery 0.6 x 0.2 x 0.3 cm. Also with normal fatty hilum, benign looking with normal corticomedullary differentiation. There is a small right side of the isthmus residual tissue 0.7 cm. 06/02/2019 RIGHT NECK SOFT TISSUES: There is no interval lymphadenopathy. No cystic or solid mass. Level 1B: 2.1 x 0.5 cm. Normal bobby architecture. Stable from prior exam 01/20/2019, prior measurement 2.2 x 0.5 cm. Level 3: 0.9 x 0.4 cm. . Normal bobby architecture. LEFT NECK SOFT TISSUES: There is no interval lymphadenopathy. No cystic or solid mass. Level 1B: 0.8 x 0.5 cm. Normal bobby architecture. Level 3: 2.0 x 0.6 cm. Normal bobby architecture. Similar to prior exam 01/20/2019, prior measurement 1.8 x 0.4 cm. 06/22/17 DEXA scan FINDINGS: AP SPINE L1-L4: No exclusions. Current: BMD 1.099 g/cm2, Z-score 0.5, T-score -0.7, normal, 5.2% increase from baseline (<5% change is not significant). Baseline: BMD 1.045 g/cm2. LEFT FEMUR, NECK: Current: BMD 0.780 g/cm2, Z-score -0.7, T-score -1.9, osteopenia. Baseline: BMD 0.810 g/cm2. LEFT FEMUR, TOTAL: Current: BMD 0.862 g/cm2, Z-score -0.3, T-score -1.2, osteopenia, 0.2% increase from baseline (<5% change is not significant). Baseline: BMD 0.860 g/cm2. Laboratory Tests 03/11/18 05/09/18 07/12/18 11:20 15:20 13:08 TSH Free T4 Thyroglobulin Thyroglobulin LC-M S/MS Thyroglobulin Anti body 94 H 67 H 64 H 12/23/18 06/30/19 10/20/19 08:40 11:50 11:45 TSH Free T4 Thyroglobulin Thyroglobulin LC-M S/MS Thyroglobulin Anti body 62 H 63 H 57 H 01/19/20 01/19/20 01/29/20 11:31 11:31 11:51 TSH 4.32 H 4.33 H Free T4 Thyroglobulin Thyroglobulin LC-M S/MS Thyroglobulin Anti body 52 H 03/22/20 03/22/20 04/22/20 10:55 10:55 11:30 TSH 3.36 Free T4 1.26 Thyroglobulin Thyroglobulin LC-M S/MS <0.4 <0.4 Thyroglobulin Anti body 48 H 37 H 04/22/20 05/24/20 05/24/20 11:30 12:35 12:35 TSH 2.58 68.61 H Free T4 1.36 0.40 L Thyroglobulin TNP Thyroglobulin LC-M S/MS <0.4 Thyroglobulin Anti body 30 H Laboratory Tests 03/11/18 05/09/18 07/12/18 11:20 15:20 13:08 TSH Free T4 Thyroglobulin LC-M S/MS <0.4 <0.4 <0.4 Thyroglobulin Anti body 94 H 67 H 64 H 12/23/18 06/30/19 06/30/19 08:40 11:50 11:50 TSH Free T4 1.31 Thyroglobulin LC-M S/MS <0.4 <0.4 Thyroglobulin Anti body 62 H 63 H 10/20/19 10/20/1901/18/20 11:45 11:45 11:31 TSH 4.32 H Free T4 1.24 Thyroglobulin LC-M S/MS <0.4 Thyroglobulin Anti body 57 H 01/19/20 01/29/20 03/22/20 11:31 11:51 10:55 TSH 4.33 H 3.36 Free T4 1.45 1.26 Thyroglobulin LC-M S/MS <0.4 Thyroglobulin Anti body 52 H 03/22/20 04/22/20 04/22/20 10:55 11:30 11:30 TSH 2.58 Free T4 1.36 Thyroglobulin LC-M S/MS <0.4 Thyroglobulin Anti body 48 H Pending Laboratory Tests 04/22/20 11:30 TSH 2.58 Free T4 1.36 [facility] Medical History (Updated 11/14/22 @ 14:43 by Celsa Lyn MD) Herpes simplex type 2 infection Pleural effusion, malignant (~2019) Chest tube in place Osteopenia History of right breast cancer (~2005) Primary thyroid cancer (~2005) Metastatic breast cancer Arthritis Back pain Hx of radiation therapy History of chemotherapy GERD (gastroesophageal reflux disease) History of anxiety Depression Lab test negative for COVID-19 virus History of palpitations ISH on CPAP Vaginal lesion Shortness of breath Post-surgical hypothyroidism (~2005) Atelectasis of right lung Surgical History Hx of cataract surgery Status post fine needle aspiration Hx of chest tube placement (~2020) History of total right knee replacement (TKR) (~2016) History of colonoscopy (~2018) History of endoscopy (~2018) History of partial mastectomy (~2005) History of thyroidectomy (~2005) Family History Father Alzheimer's disease HTN (hypertension) Mother CHF (congestive heart failure) Renal failure PVD (peripheral vascular disease) HTN (hypertension) Macular degeneration Maternal Grandfather CVD (cardiovascular disease) Myocardial infarction Maternal Grandmother Stomach cancer CVD (cardiovascular disease) Paternal Grandfather Black lung disease Paternal Grandmother No problems noted. Brother Substance use disorder Sister No problems noted. Son No problems noted. Son No problems noted. Family/Other History of breast cancer Maternal Uncle Colon cancer Social History Household Members: Spouse Housing: House Are you a primary care provider to a significant other at home: No Do you presently have visiting nurse or other home services: No Alcohol intake: former Patient Tobacco Use Status: Former Tobacco user Quit Date: Tobacco use type: Cigarette Cigarette Packs Per Day: 1 Years Smoked: 10 yrs service: No Current occupational status: retired Sexual orientation: Straight/Heterosexual Gender identity: Female Cognitive needs: No Hearing needs: No Vision needs: Yes Physical Exam Vital Signs: BMI result Body Mass Index 28.7 Const Other: There is a healed scar status post thyroidectomy . There is no cervical adenopathy palpated. Reflexes 2+ DTR. Heart is S1-S2 with regular rate and rhythm Assessment & Plan Assessment & Plan (1) Primary thyroid cancer: Onset Date: ~2005 Comment: dx Papillary Thyroid Cancer, stage 1 - 06/16/2005, s/p surgery (02/07/06) & DAWSON (107.7 mCi) 04/13/06 Code(s): C73 - Malignant neoplasm of thyroid gland Plan: This is a 67-year-old white female with a history of papillary thyroid cancer status post thyroidectomy in 2005 with radioactive iodine therapy in 2006 with persistent anti-thyroglobulin antibodies. She appears to be clinically and biochemically euthyroid on 88 mcg levothyroxine . Neck ultrasounds in the past not showed the persistence or presence of thyroid cancer. She saw Dr. Awad who recommended following the anti-thyroglobulin antibodies serailly. Thyroglobulin antibodies have been stable measurement. Neck ultrasound on 07/18/2022 shows the absence of any abnormal lymph nodes The plan is to continue the current treatment. Coding Level of Care Code Est Pt Level 3 (64110) Diagnoses Primary thyroid cancer C73
== END 2022-12-26 11:48 | disposition home or self-care (01) ==
PROVIDERS: PCP Internal Medicine; Referring Provider Internal Medicine; Visit Provider Internal Medicine Endocrinology, Diabetes & Metabolism
DX: C73 Malignant neoplasm of thyroid gland (principal)
CPT/HCPCS: 99213

== ENCOUNTER → 2022-12-26 11:19 | Outpatient (BNVA) | payer OTHER, MEDICAID, SELFPAY | PROVIDERS: Visit Provider Internal Medicine Endocrinology, Diabetes & Metabolism | DX: E89.0 Postprocedural hypothyroidism (principal); Z85.850 Personal history of malignant neoplasm of thyroid; Z79.899 Other long term (current) drug therapy | CPT/HCPCS: 99212 ==

== ENCOUNTER 2022-12-28 13:36 | Outpatient (AMB) | payer OTHER, SELFPAY ==
--- NOTE | 2022-12-28 13:44 | MHC.OFFVIS ---
Intake Vital Signs 12/28/22 13:45 Height 5 ft 3 in Weight 160 lb 7.944 oz BMI 28.4 BP 130/72 Blood Pressure Location Lt brachial Position Sitting Pulse 87 Pulse Source Pulse Oximeter Pulse Oximetry (%) 97 Intake Visit Reasons: 4 mth fu after testing Intake Note: patient having some s/b during physical activities Sort Worker Required: No Allergies Sulfa (Sulfonamide Antibiotics) Allergy (Severe, Verified 12/28/22 13:50) lip swelling, facial swelling sulfamethoxazole [From BACTRIM] Allergy (Severe, Verified 12/28/22 13:50) FACE/LIP SWELLING adhesive tape [ADHESIVE TAPE] Allergy (Intermediate, Verified 12/28/22 13:50) BLISTERS,SKIN SLOUGHING amlodipine Adverse Reaction (Intermediate, Verified 12/28/22 13:50) Palpitations Medication List - Last Reconciled 12/28/22 by Kaur Agrawal, [employer] atorvastatin 40 mg PO BEDTIME 90 days bisacodyl (Woman's Laxative (bisacodyl)) 10 mg PO BEDTIME PRN chlorhexidine gluconate 0.12% 15 mL buccal DAILY cholecalciferol (vitamin D3) 10 mcg PO BEDTIME CPAP As directed fluoride (sodium) 1.1% (Denta 5000 Plus) 1 appl PO BID fluoxetine 20 mg PO QAM letrozole 2.5 mg PO DAILY levothyroxine 88 mcg PO DAILY ondansetron 4 mg PO Q6H PRN palbociclib 125 mg PO DAILY propranolol 60 mg PO BID 90 days valacyclovir (Valtrex) 1,000 mg PO DAILY HPI 4 mth fu after testing HPI Details Flaca is a 67-year-old female with past medical history of hypertension, hyperlipidemia, breast cancer with prior chemotherapy and radiation, malignant pleural effusion, currently stable at present who was reporting some chest discomfort and had CTA of the coronary arteries. She now presents for follow-up. Today she reports that she has been getting some vague, tingling sensations in her left breast region occurring mostly at rest. No chest discomfort brought on by exertion. No concerning shortness of breath. No PND, orthopnea or edema. No palpitations, presyncope, syncope, falls. Taking meds as directed. Does light physical activity. [facility] Medical History Herpes simplex type 2 infection Pleural effusion, malignant (~2019) Chest tube in place Osteopenia History of right breast cancer (~2005) Primary thyroid cancer (~2005) Metastatic breast cancer Arthritis Back pain Hx of radiation therapy History of chemotherapy GERD (gastroesophageal reflux disease) History of anxiety Depression Lab test negative for COVID-19 virus History of palpitations ISH on CPAP Vaginal lesion Shortness of breath Post-surgical hypothyroidism (~2005) Atelectasis of right lung Surgical History Hx of cataract surgery Status post fine needle aspiration Hx of chest tube placement (~2020) History of total right knee replacement (TKR) (~2016) History of colonoscopy (~2018) History of endoscopy (~2018) History of partial mastectomy (~2005) History of thyroidectomy (~2005) Family History Father Alzheimer's disease HTN (hypertension) Mother CHF (congestive heart failure) Renal failure PVD (peripheral vascular disease) HTN (hypertension) Macular degeneration Maternal Grandfather CVD (cardiovascular disease) Myocardial infarction Maternal Grandmother Stomach cancer CVD (cardiovascular disease) Paternal Grandfather Black lung disease Paternal Grandmother No problems noted. Brother Substance use disorder Sister No problems noted. Son No problems noted. Son No problems noted. Family/Other History of breast cancer Maternal Uncle Colon cancer Social History Household Members: Spouse Housing: House Are you a primary medical care manager to a significant other at home: No Do you presently have visiting nurse or other home services: No Alcohol intake: former Patient Tobacco Use Status: Former Tobacco user Quit Date: Tobacco use type: Cigarette Cigarette Packs Per Day: 1 Years Smoked: 10 yrs service: No Current occupational status: retired Sexual orientation: Straight/Heterosexual Gender identity: Female Cognitive needs: No Hearing needs: No Vision needs: Yes Review of Systems Const All systems reviewed & are unremarkable except as noted in HPI and below Card Reports chest pain, Denies chest pain at rest, Denies chest pain with activity, Reports rapid heart rate, Denies pedal edema, Denies edema, Denies leg edema, Denies lightheadedness, Denies palpitations, Denies dyspnea, Denies dyspnea on exertion and Denies orthopnea Resp Denies cough, Denies dyspnea and Denies dyspnea on exertion GI Denies hematochezia and Denies change in stool character Musc Denies abnormal gait, Denies muscle weakness, Denies numbness, Denies radiating pain into limb, Denies stiffness and Denies tingling Neuro Denies abnormal gait, Denies numbness and Denies tingling Endo Denies palpitations Physical Exam Vital Signs: Last Vital Signs Pulse 87 12/28/22 13:45 BP 130/72 12/28/22 13:45 Pulse Ox 97 12/28/22 13:45 BMI result Body Mass Index 28.4 Const General: cooperative, healthy appearing, comfortable and no acute distress Orientation/consciousness: patient oriented x3 Resp Effort & Inspection: normal respiratory effort Auscultation: clear to auscultation bilaterally, no crackles, no rales, no rhonchi and no wheezes Cardio Jugular venous distension: no JVD Rate: regular rate Rhythm: regular rhythm Heart sounds: S1 normal heart sound present, S2 normal heart sound present, no gallops, no murmurs and no rubs Peripheral pulses: Peripheral pulses 2+ throughout Neuro General: patient oriented x3 Extrem General: Yes normal to inspection and No no pedal edema Psych Appearance: grossly normal Mental Status: mental status grossly normal Speech and movement: Normal speech and movement present Assessment & Plan Assessment & Plan (1) Chest pain: Code(s): R07.9 - Chest pain, unspecified Qualifiers: Chest pain type: precordial pain Qualified Code(s): R07.2 - Precordial pain Plan: Atypical sounding chest discomfort. History of breast cancer with chemo and radiation, currently stable. Echocardiogram done 01/18/2022 showed EF 55-60%, basal inferior akinetic, intra atrial septal aneurysm, no shunt noted. A CTA of the coronary arteries was done 10/20/2022 showing no evidence of hemodynamically significant coronary artery disease, mild stenosis of the distal portion of proximal LAD extending into the mid LAD in the lower portion of the 25-49% range, otherwise minimal scattered plaque with stenosis less than 25%. Incidental finding of a 1 cm hyperdense lesion in these left hepatic lobe. Patient states her PCP is aware of this. Given copy of report to patient to share with other providers. Review test results with her in detail. She has nonobstructive coronary artery disease. This does not account for her chest discomfort which is likely breast or chest wall in nature. Recommend she take aspirin 81 mg daily. Continue atorvastatin with ideal LDL goal less than 70. A recent lipid profile in system for review. She says she has order pending which she needs to obtain. Signs and symptoms of true angina reviewed with her. Cardiology follow-up in 1 year, sooner if needed. (2) CAD (coronary atherosclerotic disease): Code(s): I25.10 - Atherosclerotic heart disease of [place] coronary artery without angina pectoris Plan: Nonobstructive coronary artery disease, mild. (3) Essential hypertension: Code(s): I10 - Essential (primary) hypertension Plan: Well controlled at present time. No med changes made (4) Hyperlipidemia: Code(s): E78.5 - Hyperlipidemia, unspecified Qualifiers: Hyperlipidemia type: unspecified Qualified Code(s): E78.5 - Hyperlipidemia, unspecified Plan: As above. Due for fasting lipid profile (5) Palpitations: Comment: On propranolol, follow-up with Cardiology Code(s): R00.2 - Palpitations Plan: History of heart palpitations. Holter monitor done 12/2017 showed sinus rhythm with frequent SVE, 14% of the time. She has been on propanolol with improvement in symptoms. She currently denies any concerning heart palpitations. Will have her continue on her usual propanolol 60 mg b.i.d.. Coding Level of Care Code Est Pt Level 4 (81666) Diagnoses Precordial pain R07.2 Chest pain type: precordial pain CAD (coronary atherosclerotic disease) I25.10 Essential hypertension I10 Hyperlipidemia, unspecified hyperlipidemia type E78.5 Hyperlipidemia type: unspecified Palpitations R00.2 Time Spent (min) 28
[2022-12-28 13:45] VITALS: BP 130/72; PULSE 87; O2SAT 97; BMI 28.4
== END 2022-12-28 14:32 | disposition home or self-care (01) ==
PROVIDERS: PCP Internal Medicine; Visit Provider Nurse Practitioner Family
DX: R07.2 Precordial pain (principal); I25.10 Atherosclerotic heart disease of native coronary artery without angina pectoris; I10 Essential (primary) hypertension; E78.5 Hyperlipidemia, unspecified; R00.2 Palpitations
CPT/HCPCS: 99214

== ENCOUNTER → 2022-12-28 13:36 | Outpatient (BNVA) | payer OTHER, SELFPAY | PROVIDERS: PCP Internal Medicine; Visit Provider Nurse Practitioner Family | DX: R07.2 Precordial pain (principal); R00.2 Palpitations; I25.10 Atherosclerotic heart disease of native coronary artery without angina pectoris; I10 Essential (primary) hypertension; E78.5 Hyperlipidemia, unspecified | CPT/HCPCS: 99212 ==

== ENCOUNTER → 2023-09-24 12:30 | Outpatient (BNV) | payer MEDICARE, MEDICAID, SELFPAY | PROVIDERS: PCP Internal Medicine; Visit Provider Radiology Diagnostic Radiology | DX: Z12.31 Encounter for screening mammogram for malignant neoplasm of breast (principal) | CPT/HCPCS: 77063; 77067 ==

== ENCOUNTER 2023-09-24 12:32 | Outpatient (REF) | payer MEDICARE, MEDICAID, SELFPAY ==
--- NOTE | ~2023-09-24 | MM_ITS ---
EXAMINATION: MM SCREENING DIGITAL BREAST TOMOSYNTHESIS, BILATERAL CLINICAL INFORMATION: Screening. Asymptomatic. The patient is status post conservation therapy for right breast cancer diagnosed in 2005. COMPARISON: Mammography: This study is compared with prior exams dating back to 2018. TECHNIQUE: Digital breast tomosynthesis is performed in both the craniocaudal and mediolateral oblique views along with computer-aided detection (CAD). Synthesized 2D images are generated from the tomosynthesis. FINDINGS: There are scattered areas of fibroglandular density (ACR BI-RADS breast composition Category b). There are no significant masses, abnormal calcifications, or other abnormalities. There are postsurgical changes in the upper outer quadrant of the right breast. MM/MM tomosynthesis screening BI IMPRESSION: No mammographic evidence of malignancy. ASSESSMENT: BI-RADS BI-RADS 1 - Negative RECOMMENDATION: Routine annual mammography screening. 1 year F/U This examination should not preclude the clinical evaluation of a suspicious palpable abnormality. This patient's information was entered into a reminder system with a target due date for their next mammogram.
== END 2023-09-24 12:33 | disposition home or self-care (01) ==
LOC: HO.MAMMO 12:32
PROVIDERS: PCP Internal Medicine; Visit Provider Internal Medicine
DX: Z12.31 Encounter for screening mammogram for malignant neoplasm of breast (principal)
CPT/HCPCS: 77063; 77067

== ENCOUNTER 2023-10-10 09:59 | Outpatient (AMB) | payer MEDICARE, MEDICAID, SELFPAY ==
[2023-10-10 10:16] VITALS: BP 136/80; PULSE 66; O2SAT 96; BMI 27.8
--- NOTE | 2023-10-10 10:16 | A.OFFPC_ITS ---
Vital Signs 10/10/23 10:16 Height 5 ft 3 in Weight 157 lb BMI 27.8 BP 136/80 Blood Pressure Location Lt brachial Position Sitting Pulse 66 Pulse Source Pulse Oximeter Pulse Oximetry (%) 96 Oxygen Delivery Method Room Air Intake Visit Reasons: PE Intake Note: Pt is here today for PE. Allergies Sulfa (Sulfonamide Antibiotics) Allergy (Severe, Verified 10/10/23 10:43) lip swelling, facial swelling sulfamethoxazole [From BACTRIM] Allergy (Severe, Verified 10/10/23 10:43) FACE/LIP SWELLING adhesive tape [ADHESIVE TAPE] Allergy (Intermediate, Verified 10/10/23 10:43) BLISTERS,SKIN SLOUGHING amlodipine Adverse Reaction (Intermediate, Verified 10/10/23 10:43) Palpitations Medication List - Last Reconciled 10/10/23 by Celsa Lyn MD aspirin 81 mg PO DAILY atorvastatin 40 mg PO BEDTIME bisacodyl (Woman's Laxative (bisacodyl)) 10 mg PO BEDTIME PRN chlorhexidine gluconate 0.12% 15 mL buccal DAILY cholecalciferol (vitamin D3) 10 mcg PO BEDTIME CPAP As directed fluoxetine 20 mg PO QAM letrozole 2.5 mg PO DAILY levothyroxine 88 mcg PO DAILY ondansetron 4 mg PO Q6H PRN palbociclib 125 mg PO DAILY propranolol 60 mg PO BID 90 days valacyclovir 1,000 mg PO DAILY Tobacco use date assessed: 10/10/23 Fall risk assessment: 2 + Falls in past year Last assessed Fall Risk: 10/10/23 Dental Screening Dental Screen Date: 10/10/23 Did you have a dental visit in the last 12 months?: Yes Did you have a dental problem in the last 6 months where you did not have access to dental care?: No Was dental information given to patient?: Patient has dentist HPI PE HPI Details Pt presents for PE PFSH Medical History Herpes simplex type 2 infection Pleural effusion, malignant (~2019) Chest tube in place Osteopenia History of right breast cancer (~2005) Primary thyroid cancer (~2005) Metastatic breast cancer Arthritis Back pain Hx of radiation therapy History of chemotherapy GERD (gastroesophageal reflux disease) History of anxiety Depression Lab test negative for COVID-19 virus History of palpitations ISH on CPAP Vaginal lesion Shortness of breath Post-surgical hypothyroidism (~2005) Atelectasis of right lung Surgical History Hx of cataract surgery Status post fine needle aspiration Hx of chest tube placement (~2020) History of total right knee replacement (TKR) (~2016) History of colonoscopy (~2018) History of endoscopy (~2018) History of partial mastectomy (~2005) History of thyroidectomy (~2005) Family History Father Alzheimer's disease HTN (hypertension) Mother CHF (congestive heart failure) Renal failure PVD (peripheral vascular disease) HTN (hypertension) Macular degeneration Maternal Grandfather CVD (cardiovascular disease) Myocardial infarction Maternal Grandmother Stomach cancer CVD (cardiovascular disease) Paternal Grandfather Black lung disease Paternal Grandmother No problems noted. Brother Substance use disorder Sister No problems noted. Son No problems noted. Son No problems noted. Family/Other History of breast cancer Maternal Uncle Colon cancer Social History Household Members: Spouse Housing: House Are you a primary home care consultant to a significant other at home: No Do you presently have visiting nurse or other home services: No Alcohol intake: former Comment: no skin breakdown noted Patient Tobacco Use Status: Former Tobacco user Tobacco use type: Cigarette Cigarette Packs Per Day: 1 Years Smoked: 10 yrs e-Cigarette/Vaping Use: Never Used service: No Current occupational status: retired Sexual orientation: Straight/Heterosexual Gender identity: Female Cognitive needs: No Hearing needs: No Vision needs: Yes Questionnaire PHQ-9 Over the last 2 weeks, how often have you been bothered by any of the following problems? 1. Little interest or pleasure in doing things: more than half the days 2. Feeling down, depressed, or hopeless: more than half the days 3. Trouble falling or staying asleep, or sleeping too much: more than half the days 4. Feeling tired or having little energy: more than half the days 5. Poor appetite or overeating: more than half the days 6. Feeling bad about yourself - or that you are a failure or have let yourself or your family down: several days 7. Trouble concentrating on things, such as reading the newspaper or watching television: more than half the days 8. Moving or speaking so slowly that other people could have noticed. Or the opposite - being so fidgety or restless that you have been moving around a lot more than usual: not at all 9. Thoughts that you would be better off or of hurting yourself in some way: not at all Total score: 13 Depression Screening Interpretation: Positive (on Prozac, follows with therapist) Depression Screening Follow-up: Existing condition and In treatment Depression Screening Done: Yes Source: Developed by Drs. Raul Anderson, Elisabeth Ryder, Christiano Najera and colleagues, with an educational garrett from [employer]. Thrive Questionnaire Date Thrive assessed: 10/10/23 I am a: Patient What is your living situation today?: I have a steady place to live Within the past 12 months, did the food you bought not last and you didn't have the money to get more?: I choose not to answer this question Within the past 12 months, did you worry whether your food would run out before you got money to buy more?: I choose not to answer this question Do you have trouble paying for medicines?: I choose not to answer this question Do you have trouble getting transportation to medical appointments?: I choose not to answer this question Do you have trouble paying your heating and electricity bill?: I choose not to answer this question Do you have trouble taking care of your child, family member or friend?: I choose not to answer this question Do you have trouble with day-to-day activities such as bathing, preparing meals, shopping, managing finances, etc.?: I choose not to answer this question Are you currently unemployed and looking for a job?: I choose not to answer this question Are you interested in more education?: No Please select the resources that you would like help with: Daily support Currently or been in a relationship where the following occur: No concerns reported THRIVE Score: 0 AUDIT C Alcohol Use Questionnaire (AUDIT-C) 1. How often do you have a drink containing alcohol?: Monthly or less 2. How many drinks containing alcohol do you have on a typical day when you are drinking?: 1 or 2 3. How often do you have six or more drinks on one occasion?: Never Total Score: 1 COLETTE-7 AMB Questionnaire COLETTE-7 Date COLETTE - 7 assessed: 10/10/23 Feeling nervous, anxious, or on edge: 2 = More than half the days Not being able to stop or control worryin = More than half the days Worrying too much about different things: 2 = More than half the days Trouble relaxin = More than half the days Being so restless that it is hard to sit still: 2 = More than half the days Becoming easily annoyed or irritable: 2 = More than half the days Feeling afraid as if something awful might happen: 2 = More than half the days Total COLETTE-7 score (0-4 normal; 5-9 mild; 10-14 moderate; 15-21 severe): 14 Source: Developed by Drs. Raul Anderson, Elisabeth Ryder, Christiano Najera and colleagues, with an educational garrett from [employer]. Review of Systems Const All systems reviewed & are unremarkable except as noted in HPI and below ENT Reports no additional complaints Card Reports no additional complaints Resp Reports no additional complaints GI Reports no additional complaints Reports no additional complaints Physical exam (Primary Care) Vital Signs: Last Vital Signs Pulse 66 10/10/23 10:16 BP 136/80 10/10/23 10:16 Pulse Ox 96 10/10/23 10:16 Oxygen Delivery Method Room Air 10/10/23 10:16 BMI result Body Mass Index 27.8 Tobacco/Smoking Status: Tobacco use Status Tobacco use date assessed 10/10/23 10/10/23 10:47 Patient Tobacco Use Status Former Tobacco user 10/10/23 10:16 Tobacco use type Cigarette 10/10/23 10:16 e-Cigarette/Vaping Use Never Used 10/10/23 10:47 PHQ-9: PHQ-9 Score PHQ-9: Total score 13 10/10/23 10:47 Depression Screening Interpretation: Positive (on Prozac, follows with therapist) Depression Screening Follow-up: Existing condition and In treatment Thrive Assessment: Date of Thrive Assessment Date Thrive assessed 10/10/23 10/10/23 10:47 Currently or been in a relationship where the following occur: No concerns reported Const General: no acute distress Eyes General: appearance normal, both eyes and all related structures Neck Neck: Yes no lymphadenopathy and Yes supple Resp Effort & Inspection: normal respiratory effort Auscultation: clear to auscultation bilaterally Cardio Rhythm: regular rhythm Heart sounds: S1 normal heart sound present and S2 normal heart sound present GI Inspection: Yes normal to inspection Palpation (GI): Soft to palpation Percussion: Yes normal to percussion Auscultation: normal bowel sounds Assessment and Plan Assessment & Plan (1) Microscopic hematuria: Comment: chronic, negative cystoscopy many years ago Code(s): R31.29 - Other microscopic hematuria Plan: check UA and urine cytology (2) Hyperlipidemia: Code(s): E78.5 - Hyperlipidemia, unspecified Qualifiers: Hyperlipidemia type: unspecified Qualified Code(s): E78.5 - Hyperlipidemia, unspecified Plan: cont statin (3) Essential hypertension: Code(s): I10 - Essential (primary) hypertension Plan: cont meds (4) Annual physical exam: Code(s): Z00.00 - Encounter for general adult medical examination without abnormal findings Plan: well balanced diet, regular exercise discussed, return for fasting labs (5) Metastatic breast cancer: Comment: ([facility] Rt breast s/p lumpectomy/chemo/radiation in 2005 - now has malignant right pleural effusion) Code(s): C50.919 - Malignant neoplasm of unspecified site of unspecified female breast Plan: f/u with oncology (6) Primary thyroid cancer: Onset Date: ~2005 Comment: dx Papillary Thyroid Cancer, 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 Panel Fast Today Celsa Lyn MD R31.29 - Other microscopic hematuria TSH reflex Free T4 Today Celsa Lyn MD R31.29 - Other microscopic hematuria Urine Cytology Today Celsa Lyn MD R31.29 - Other microscopic hematuria Vitamin D 25-OH Total Today Celsa Lyn MD R31.29 - Other microscopic hematuria UA w Microscopic Today Celsa Lyn MD R31.29 - Other microscopic hematuria Urine Culture Today Celsa Lyn MD R30.0 - Dysuria Medications: New fluoxetine 20 mg PO QAM 90 caps 3RF Celsa Lyn MD Changed From palbociclib administer on days 1 through 21 of a 28-day treatment cycle 125 mg PO DAILY 21 caps 5RF To palbociclib administer on days 1 through 21 of a 28-day treatment cycle 125 mg PO DAILY Veronica Bains MD Coding Level of Care Code Est Pt Prev Care >65y(58838) Diagnoses Microscopic hematuria R31.29 Hyperlipidemia, unspecified hyperlipidemia type E78.5 Hyperlipidemia type: unspecified Essential hypertension I10 Annual physical exam Z00.00 Metastatic breast cancer C50.919 Primary thyroid cancer C73
== END 2023-10-10 11:41 | disposition home or self-care (01) ==
PROVIDERS: PCP Internal Medicine; Visit Provider Internal Medicine
DX: Z00.00 Encounter for general adult medical examination without abnormal findings (principal); R31.29 Other microscopic hematuria; E78.5 Hyperlipidemia, unspecified; I10 Essential (primary) hypertension; C50.919 Malignant neoplasm of unspecified site of unspecified female breast; C73 Malignant neoplasm of thyroid gland
CPT/HCPCS: 99397

== ENCOUNTER 2023-11-01 12:51 | Outpatient (AMB) | payer MEDICARE, MEDICAID, SELFPAY ==
--- NOTE | 2023-11-01 12:54 | MHC.OFFVIS ---
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 She is doing well with no concerns: External dryness and slight irritation at times, occasional fishy odor and cramping. Currently sexually active and occasionally uses Replens moisturizer. Attempting to eat a healthy diet with vitamin D and stays active with exercise. Currently sexually active. Last mammogram; 2023. Last Pap; 2020. Colonoscopy is UTD. [facility] Medical History Herpes simplex type 2 infection Pleural effusion, malignant (~2019) Chest tube in place Osteopenia History of right breast cancer (~2005) Primary thyroid cancer (~2005) Metastatic breast cancer Arthritis Back pain Hx of radiation therapy History of chemotherapy GERD (gastroesophageal reflux disease) History of anxiety Depression Lab test negative for COVID-19 virus History of palpitations ISH on CPAP Vaginal lesion Shortness of breath Post-surgical hypothyroidism (~2005) Atelectasis of right lung Surgical History Hx of cataract surgery Status post fine needle aspiration Hx of chest tube placement (~2020) History of total right knee replacement (TKR) (~2016) History of colonoscopy (~2018) History of endoscopy (~2018) History of partial mastectomy (~2005) History of thyroidectomy (~2005) Family History Father Alzheimer's disease HTN (hypertension) Mother CHF (congestive heart failure) Renal failure PVD (peripheral vascular disease) HTN (hypertension) Macular degeneration Maternal Grandfather CVD (cardiovascular disease) Myocardial infarction Maternal Grandmother Stomach cancer CVD (cardiovascular disease) Paternal Grandfather Black lung disease Paternal Grandmother No problems noted. Brother Substance use disorder Sister No problems noted. Son No problems noted. Son No problems noted. Family/Other History of breast cancer Maternal Uncle Colon cancer Social History Household Members: Spouse Housing: House Are you a primary acute care surgeon to a significant other at home: No Do you presently have visiting nurse or other home services: No Alcohol intake: former Comment: no skin breakdown noted Patient Tobacco Use Status: Former Tobacco user Tobacco use type: Cigarette Cigarette Packs Per Day: 1 Years Smoked: 10 yrs e-Cigarette/Vaping Use: Never Used service: No Current occupational status: retired Sexual orientation: Straight/Heterosexual Gender identity: Female Cognitive needs: No Hearing needs: No Vision needs: Yes Female Reproductive History Menstrual Total pregnancies: 3 Full term: 2 Number of Living Children: 2 Date of last pap smear: 08/11/20 (neg pap and hpv) Date of Mammogram: 09/24/23 (Birad 1) History of abnormal mammogram: Yes Review of Systems Const All systems reviewed & are unremarkable except as noted in HPI and below Reports as per HPI Eyes Reports no additional complaints ENT Reports no additional complaints Card Reports no additional complaints Resp Reports no additional complaints GI Reports as per HPI and Reports no additional complaints Reports as per HPI Musc Reports no additional complaints Skin/Breast Reports as per HPI Neuro Reports no additional complaints Psych Reports no additional complaints Endo Reports no additional complaints Luis Manuel/Lymph Reports no additional complaints Aller/Immun Reports no additional complaints Physical Exam Vital Signs: Last Vital Signs BP 132/74 11/01/23 12:55 BMI result Body Mass Index 27.8 Const General: cooperative, healthy appearing, no acute distress, well developed and alert Orientation/consciousness: patient oriented x3 HEENT Head: Yes normal to inspection Eyes General: appearance normal, both eyes and all related structures Neck Neck: Yes normal visual inspection Thyroid: Thyroid normal Chest Other: Right breast surgical scars Chest palpation & inspection: normal inspection of the chest and other (no puckering, dimpling, peau de orange, retraction, discharge, masses) Breast/axilla inspection: normal inspection of the breasts Breast/axilla palpation: normal palpation of the breasts Resp Effort & Inspection: normal respiratory effort GI Inspection: Yes normal to inspection Palpation (GI): Soft to palpation Rectal Exam - Female: deferred General: Yes bladder normal to palpation External Female Exam: normal external appearance (Atrophic change) and normal appearance of the urethra Speculum Exam - Vagina: normal appearance of the vagina, normal palpation, normal vaginal discharge and vagina atrophic Speculum Exam - Cervix: normal appearance of the cervix and normal palpation Bimanual exam- vagina & uterus: normal bimanual exam, normal palpation, uterine size normal, bladder normal to palpation, normal palpation and non-tender Bimanual Exam- Adnexa, other: no masses Skin General skin exam: no rashes or lesions noted Rashes: no rashes Neuro General: patient oriented x3 Cognition (Neuro): normal cognition Extrem General: Yes normal to inspection Psych Attitude: cooperative Thought process: Normal thought process present Assessment & Plan Assessment & Plan (1) Encounter for well woman exam with routine gynecological exam: Code(s): Z01.419 - Encounter for gynecological examination (general) (routine) without abnormal findings Category: Medical Plan: Discussed: Current recommendations for pap smears per ASCCP guidelines. Breast awareness, periodic self breast exams and yearly mammogram. Maintain a healthy lifestyle, well balanced diet including Calcium 1,200 mg and Vitamin D 600 IU daily, and routine exercise. Calcium handout dispensed. Use of Replens moisturizer, lubrication, external ointment including Nue Radha, role of probiotics for gut in vaginal health. Cleansing, clothing and other concerns for vulvar health. Follow up if any concerns. Contact the office with any postmenopausal bleeding. Patient verbalizes understanding and agrees to the plan of care. She was given opportunity to ask questions and all questions were answered to the best of my ability. 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 This note is constructed using voice recognition software. While every effort has been made to ensure accuracy, residential solar sales consultant errors may have been included. Coding Level of Care Code Est Pt Prev Care >65y(68148) Diagnoses Encounter for well woman exam with routine gynecological exam Z01.419
[2023-11-01 12:55] VITALS: BP 132/74; BMI 27.8
== END 2023-11-01 13:34 | disposition home or self-care (01) ==
PROVIDERS: PCP Internal Medicine; Visit Provider Advanced Practice Midwife
DX: Z01.419 Encounter for gynecological examination (general) (routine) without abnormal findings (principal)
CPT/HCPCS: 99397

== ENCOUNTER 2023-11-01 12:51 | Outpatient (REF) | payer MEDICARE, MEDICAID, SELFPAY ==
[2023-11-02 11:20] LABS: Bacterial Vaginosis PCR NEGATIVE (Negative); Candida Group PCR NOT DETECTED (Not Detect); Candida glab krusei PCR NOT DETECTED (Not Detect); Trichomonas vaginalis PCR NOT DETECTED (Not Detect)
== END 2023-11-01 12:52 | disposition home or self-care (01) ==
LOC: HO.LAB 12:51
PROVIDERS: PCP Internal Medicine; Visit Provider Advanced Practice Midwife
DX: N89.8 Other specified noninflammatory disorders of vagina (principal)
CPT/HCPCS: 0352U

== ENCOUNTER 2023-12-12 09:53 | Outpatient (AMB) | payer MEDICARE, MEDICAID, SELFPAY ==
[2023-12-12 10:12] VITALS: BP 130/72; PULSE 64; BMI 27.2
--- NOTE | 2023-12-12 10:12 | A.OFFVIS_ITS ---
Vital Signs 12/12/23 10:12 Height 5 ft 3 in Weight 153 lb 7.068 oz BMI 27.2 BP 130/72 Blood Pressure Location Lt brachial Position Sitting Pulse 64 Pulse Source Monitor Intake Visit Reasons: 1 year follow up Intake Note: 1 yr f/up Pelts Skinner Required: No Accompanied by: Self / Same As Patient Allergies Sulfa (Sulfonamide Antibiotics) Allergy (Severe, Verified 11/01/23 12:55) lip swelling, facial swelling sulfamethoxazole [From BACTRIM] Allergy (Severe, Verified 11/01/23 12:55) FACE/LIP SWELLING adhesive tape [ADHESIVE TAPE] Allergy (Intermediate, Verified 11/01/23 12:55) BLISTERS,SKIN SLOUGHING amlodipine Adverse Reaction (Intermediate, Verified 11/01/23 12:55) Palpitations Medication List - Last Reconciled 12/12/23 by Shaun Eubanks MD aspirin 81 mg PO DAILY atorvastatin 40 mg PO BEDTIME bisacodyl (Woman's Laxative (bisacodyl)) 10 mg PO BEDTIME PRN chlorhexidine gluconate 0.12% 15 mL buccal DAILY cholecalciferol (vitamin D3) 10 mcg PO BEDTIME CPAP As directed fluoxetine 40 mg (2 x 20 mg) PO QAM letrozole 2.5 mg PO DAILY levothyroxine 88 mcg PO DAILY ondansetron 4 mg PO Q6H PRN palbociclib 125 mg PO DAILY propranolol ER 120 mg PO Q24H valacyclovir 1,000 mg PO DAILY HPI Comments Details: 68-year-old female with background of papillary thyroid tumor as well as right breast cancer. She was seen for palpitations and she improved with propanolol. Due to some insurance issues her propanolol formulation had to be changed to short-acting propanolol. She is saying she has some palpitations but they are not quite bothersome to her. She was diagnosed with malignant pleural effusion which was from a breast cancer metastasis. She underwent chemotherapy and had PET scan recently and she is stable from cancer point of view. Previously her blood pressure was elevated. We started her on amlodipine 2.5 mg once a day. This has improved her blood pressure but still a her readings are little high. She is getting shortness of breath with activity. She has not been active in general. She still gets some atypical chest pains but they are mostly when she is wearing the CPAP. During the day she does not have significant chest discomfort. She had echocardiography which showed normal LV systolic function but did show basal inferior wall motion abnormality which was new compared to before. EKG in the office is normal. She is saying she gets short of breath easily. She previously had right breast radiation many years ago. 12/12/2023: She is here for follow-up. She is saying she has been doing well. No chest pain or shortness of breath. She continues to get palpitations. She said this happened after her propranolol was changed from long-acting to short- acting form. This was an insurance issue unfortunately. She is getting daily palpitations at this point. She also underwent chemotherapy and previously had radiation to her chest-right side. [facility] Medical History Herpes simplex type 2 infection Pleural effusion, malignant (~2019) Chest tube in place Osteopenia History of right breast cancer (~2005) Primary thyroid cancer (~2005) Metastatic breast cancer Arthritis Back pain Hx of radiation therapy History of chemotherapy GERD (gastroesophageal reflux disease) History of anxiety Depression Lab test negative for COVID-19 virus History of palpitations ISH on CPAP Vaginal lesion Shortness of breath Post-surgical hypothyroidism (~2005) Atelectasis of right lung Surgical History Hx of cataract surgery Status post fine needle aspiration Hx of chest tube placement (~2020) History of total right knee replacement (TKR) (~2016) History of colonoscopy (~2018) History of endoscopy (~2018) History of partial mastectomy (~2005) History of thyroidectomy (~2005) Family History Father Alzheimer's disease HTN (hypertension) Mother CHF (congestive heart failure) Renal failure PVD (peripheral vascular disease) HTN (hypertension) Macular degeneration Maternal Grandfather CVD (cardiovascular disease) Myocardial infarction Maternal Grandmother Stomach cancer CVD (cardiovascular disease) Paternal Grandfather Black lung disease Paternal Grandmother No problems noted. Brother Substance use disorder Sister No problems noted. Son No problems noted. Son No problems noted. Family/Other History of breast cancer Maternal Uncle Colon cancer Social History Household Members: Spouse Housing: House Are you a primary rn patient care to a significant other at home: No Do you presently have visiting nurse or other home services: No Alcohol intake: former Comment: no skin breakdown noted Patient Tobacco Use Status: Former Tobacco user Tobacco use type: Cigarette Cigarette Packs Per Day: 1 Years Smoked: 10 yrs e-Cigarette/Vaping Use: Never Used service: No Current occupational status: retired Sexual orientation: Straight/Heterosexual Gender identity: Female Cognitive needs: No Hearing needs: No Vision needs: Yes Review of Systems Const Denies chills, Denies fatigue, Denies fever(s), Denies frequent falls, Denies weakness, Denies weight gain and Denies weight loss ENT Denies dizziness Card Denies chest pain, Denies leg edema, Denies lightheadedness, Denies palpitations, Reports dyspnea and Reports dyspnea on exertion Resp Denies cough, Reports dyspnea and Reports dyspnea on exertion GI Denies hematochezia Musc Denies abnormal gait, Denies muscle weakness, Denies numbness, Denies radiating pain into limb and Denies tingling Neuro Denies abnormal gait, Denies dizziness, Denies frequent falls, Denies numbness, Denies tingling and Denies weakness Endo Denies fatigue and Denies palpitations Physical Exam Vital Signs: Last Vital Signs Pulse 64 12/12/23 10:12 BP 130/72 12/12/23 10:12 BMI result Body Mass Index 27.2 GENERAL APPEARANCE: in no acute distress, well developed, well nourished. NECK/THYROID: no carotid bruit, no jugular venous distention. SKIN: no suspicious lesions, warm and dry. HEART: no murmurs, regular rate and rhythm, S1, S2 normal. LUNGS: clear to auscultation bilaterally. ABDOMEN: normal, bowel sounds present, soft, nontender, nondistended. EXTREMITIES: no clubbing, cyanosis, or edema. PERIPHERAL PULSES: equal. NEUROLOGIC: nonfocal, alert and oriented. PSYCH: mood/affect full range. Office Procedures EKG Details: Sinus rhythm 64 beats per minute, normal ECG, QTC 441 milliseconds. [id number], Complete Assessment & Plan Assessment & Plan (1) Palpitations: Code(s): R00.2 - Palpitations Category: Medical (2) Essential hypertension: Code(s): I10 - Essential (primary) hypertension Category: Medical Plan Pleasant 68-year-old lady who is here for follow-up. She has known history of metastatic breast cancer and papillary thyroid cancer. She is in remission for both currently. Overall doing well. Previous coronary CTA did not show any coronary disease-she was complaining of bandlike chest discomfort at that time. Overall stable but complaining of some palpitations. These are almost daily palpitations. I have decided to arrange a 3 day Holter monitor for her. She was on long-acting propranolol previously and was doing much better on that. We will try whether her insurance will cover that. I have explained to her that if it is not covered then we can try long-acting metoprolol because there is no specific reason to use propranolol only. Blood pressure is well controlled currently. Given chemotherapy for breast and thyroid in the past-we will arrange echocardiography for surveillance. Thank you for allowing me to participate in the care of your patient. Please feel free to contact me if you have any questions. Orders: Orders ECG 3 day holter monitor Today R00.2 - Palpitations CA echo transthorac w con Today R00.2 - Palpitations Medications: New propranolol ER 120 mg PO Q24H 90 caps 3RF R00.2 - Palpitations Discontinued propranolol Discontinued Reason: Doctor's Order 60 mg PO BID 90 days 180 tabs 3RF R00.2 - Palpitations Coding Level of Care Code Est Pt Level 4 (65855) Diagnoses Palpitations R00.2 Essential hypertension I10 CPT Codes EKG - CPT: 34425-[id number], Complete ([id number])
== END 2023-12-12 10:37 | disposition home or self-care (01) ==
PROVIDERS: PCP Internal Medicine; Visit Provider Internal Medicine Cardiovascular Disease
DX: R00.2 Palpitations (principal); I10 Essential (primary) hypertension
CPT/HCPCS: 93010; 99214

== ENCOUNTER → 2023-12-12 09:53 | Outpatient (BNVA) | payer MEDICARE, MEDICAID, SELFPAY | PROVIDERS: PCP Internal Medicine; Visit Provider Internal Medicine Cardiovascular Disease | DX: R00.2 Palpitations (principal); I10 Essential (primary) hypertension | CPT/HCPCS: 93005; 99212 ==

== ENCOUNTER 2023-12-14 11:33 | Outpatient (REF) | payer MEDICARE, MEDICAID, SELFPAY ==
[2023-12-14 14:17] LABS: Free T4 (Free Thyroxine) 1.27 ng/dL (0.71-1.85); Thyroid Stimulating Hormone 0.79 uIU/mL (0.32-4.0)
[2023-12-18 03:58] LABS: Thyroglobulin Antibodies 21 IU/mL (< or = 1)
[2023-12-24 12:43] LABS: Thyroglobulin Antibody 20 IU/mL (<=1); Thyroglobulin LC/MS/MS <0.4 ng/mL (Athyrotic: <0)
== END 2023-12-14 11:34 | disposition home or self-care (01) ==
LOC: HO.HMGCLDS 11:33
PROVIDERS: PCP Internal Medicine; Visit Provider Internal Medicine Endocrinology, Diabetes & Metabolism
DX: C73 Malignant neoplasm of thyroid gland (principal)
CPT/HCPCS: 36415; 84432; 84439; 84443; 86800

== ENCOUNTER 2023-12-24 15:49 | Outpatient (AMB) | payer MEDICARE, MEDICAID, SELFPAY ==
--- NOTE | 2023-12-24 15:53 | MHC.OFFVIS ---
Vital Signs 12/24/23 15:56 Height 5 ft 3 in Weight 152 lb 12.485 oz BMI 27.1 BP 140/74 H Blood Pressure Location Lt brachial Position Sitting Pulse 69 Pulse Source Pulse Oximeter Intake Visit Reasons: f/u thyroid cancer/ Conf Intake Note: Patient present today for thyroid cancer follow up visit. Talent Agent Required: No Accompanied by: Self / Same As Patient Allergies Sulfa (Sulfonamide Antibiotics) Allergy (Severe, Verified 12/24/23 15:57) lip swelling, facial swelling sulfamethoxazole [From BACTRIM] Allergy (Severe, Verified 12/24/23 15:57) FACE/LIP SWELLING adhesive tape [ADHESIVE TAPE] Allergy (Intermediate, Verified 12/24/23 15:57) BLISTERS,SKIN SLOUGHING amlodipine Adverse Reaction (Intermediate, Verified 12/24/23 15:57) Palpitations HPI Comments Details: 67 year-old female, today for follow-up, for postsurgical hypothyroidism and papillary thyroid cancer . Was also followed by Dr. Awad in [place] She feels well. Her pleural effucion is significantly smaller. She is on treatment for her metastatic breast cancer. She had withdrawal whole body scan on 06/04/2020, her TSH was 68.6 mIU/mL, thyroglobulin level was less than 0.4 ng/mL, thyroglobulin antibodies was 30 IU/mL. 48 hours uptake was 0.06%. There was no evidence of iodine avid thyroid cancer recurrence or distant metastatic disease. She is on levothyroxine 88 mcg daily. She is 100% adherent and she has a good method of administration. Attempted FNA of the right side residual tissue with non diagnostic on 06/20/2018. She denies palpitations, she lost some weight. She has PMH of hyperlipidemia, vitamin D deficiency, osteopenia, history of breast CA status post partial mastectomy with radiation therapy and chemotherapy and thyroid carcinoma status post total thyroidectomy, radioactive iodine ablation with result in hypothyroidism. She has PTC with incomplete biochemical response without evidence of structural disease. She has postive Anti TG antibodies, with negative TG. 12/14/2017 Thyrogen stimulated whole body scan at [facility] Showed no evidence of iodine avid metastatic disease., TSH > 100 TG antiboies 85, peak TG antibodies 68 with TSH 40 miu/ml. She was Diagnosed with PTC on 06/16/2005, Thyroid cancer stage 1 , (T 1 (size 1.6 cm ), N x, M 0), treated with surgery (02/07/06) by , DAWSON (107.7 mCi) 04/13/06, Post ablation scan showed uptake in thyroid bed and salivary glands. No distant metastasis. She the histology report for the Thyroidectomy on 02/07/2006. Tumor was left side size 1.6 cm papillary carcinoma, with intra lobar metastasis , there was a small foci of PTC in the left lower pole also size not described in the report. margins were < 1 mm but clear. 2 parathyroid glands were removed. She had US on 11/18/10 no residual tissue , had a benign LN near left parotid gland 9 x 7 x 5 mm benign appearance. She had US of neck on 06/16/17 , the report was no residual tissue and no LN, but the images I reviewed she has some density in the right thyroid bed 0.6 x 2.4 x 0.6 cm, also small amount of tissue over the right half of the isthmus 0.3 cm. US 11/18/10: no residual tissue, no lymph nodes in neck, only LYMPH node in left parotid gland. US 04/09/13: right LN lateral to submandibular gland 2 x 1.4 x 0.6 cm with a fat notch . Another lymph node on the right side by the common carotid artery measuring 9 mm. There is another nodule on the left submandibular gland and measuring 1.6 cm. Also a small nodule at the submandibular gland measuring 1.3 cm. 01/13/16 Thyrogen stimulated whole body scan that was done at [facility] . The TSH increased to 150 AK U./ml. The thyroglobulin level was undetectable < 0.2 with elevated anti thyroglobulin antibodies at 179.7. scan showed increase uptake in thyroid bed anterior to the trachea 0.1 %. US thyroid bed 02/10/[address] showed multiple benign looking LN, also a hypoechoic area in the thyroid bed, FNA was performed, with no evidence any follicular cells negative for malignancy. Her trended TG is always low but has positive antibodies. 06/20/18 US performed By oh She has small amount of residual tissue. The size of the right side residual tissue is 0.97 x 1.9 x 0.7 cm. There is a right side Level III lymph node lateral to carotid artery size 0.6 cm. There is another lymph node right side level III above carotid artery also 0.6 cm, both lymph nodes present normal corticomedullary differentiation. Normal fatty hilum, both looks benign. Both Unchanged from last year ultrasound. There is a left side level II lymph node above carotid artery 0.6 x 0.2 x 0.3 cm. Also with normal fatty hilum, benign looking with normal corticomedullary differentiation. There is a small right side of the isthmus residual tissue 0.7 cm. 06/02/2019 RIGHT NECK SOFT TISSUES: There is no interval lymphadenopathy. No cystic or solid mass. Level 1B: 2.1 x 0.5 cm. Normal bobby architecture. Stable from prior exam 01/20/2019, prior measurement 2.2 x 0.5 cm. Level 3: 0.9 x 0.4 cm. . Normal bobby architecture. LEFT NECK SOFT TISSUES: There is no interval lymphadenopathy. No cystic or solid mass. Level 1B: 0.8 x 0.5 cm. Normal bobby architecture. Level 3: 2.0 x 0.6 cm. Normal bobby architecture. Similar to prior exam 01/20/2019, prior measurement 1.8 x 0.4 cm. 06/22/17 DEXA scan FINDINGS: AP SPINE L1-L4: No exclusions. Current: BMD 1.099 g/cm2, Z-score 0.5, T-score -0.7, normal, 5.2% increase from baseline (<5% change is not significant). Baseline: BMD 1.045 g/cm2. LEFT FEMUR, NECK: Current: BMD 0.780 g/cm2, Z-score -0.7, T-score -1.9, osteopenia. Baseline: BMD 0.810 g/cm2. LEFT FEMUR, TOTAL: Current: BMD 0.862 g/cm2, Z-score -0.3, T-score -1.2, osteopenia, 0.2% increase from baseline (<5% change is not significant). Baseline: BMD 0.860 g/cm2. Laboratory Tests 03/11/18 05/09/18 07/12/18 11:20 15:20 13:08 TSH Free T4 Thyroglobulin Thyroglobulin LC-MS/MS Thyroglobulin Antibody 94 H 67 H 64 H 12/23/18 06/30/19 10/20/19 08:40 11:50 11:45 TSH Free T4 Thyroglobulin Thyroglobulin LC-MS/MS Thyroglobulin Antibody 62 H 63 H 57 H 01/19/20 01/19/20 01/29/20 11:31 11:31 11:51 TSH 4.32 H 4.33 H Free T4 Thyroglobulin Thyroglobulin LC-MS/MS Thyroglobulin Antibody 52 H 03/22/20 03/22/20 04/22/20 10:55 10:55 11:30 TSH 3.36 Free T4 1.26 Thyroglobulin Thyroglobulin LC-MS/MS <0.4 <0.4 Thyroglobulin Antibody 48 H 37 H 04/22/20 05/24/20 05/24/20 11:30 12:35 12:35 TSH 2.58 68.61 H Free T4 1.36 0.40 L Thyroglobulin TNP Thyroglobulin LC-MS/MS <0.4 Thyroglobulin Antibody 30 H Laboratory Tests 03/11/18 05/09/18 07/12/18 11:20 15:20 13:08 TSH Free T4 Thyroglobulin LC-MS/MS <0.4 <0.4 <0.4 Thyroglobulin Antibody 94 H 67 H 64 H 12/23/18 06/30/19 06/30/19 08:40 11:50 11:50 TSH Free T4 1.31 Thyroglobulin LC-MS/MS <0.4 <0.4 Thyroglobulin Antibody 62 H 63 H 10/20/19 10/20/19 01/19/20 11:45 11:45 11:31 TSH 4.32 H Free T4 1.24 Thyroglobulin LC-MS/MS <0.4 Thyroglobulin Antibody 57 H 01/19/20 01/29/20 03/22/20 11:31 11:51 10:55 TSH 4.33 H 3.36 Free T4 1.45 1.26 Thyroglobulin LC-MS/MS <0.4 Thyroglobulin Antibody 52 H 03/22/20 04/22/20 04/22/20 10:55 11:30 11:30 TSH 2.58 Free T4 1.36 Thyroglobulin LC-MS/MS <0.4 Thyroglobulin Antibody 48 H Pending Laboratory Tests 04/22/20 11:30 TSH 2.58 Free T4 1.36 PFSH Medical History Herpes simplex type 2 infection Pleural effusion, malignant (~2019) Chest tube in place Osteopenia History of right breast cancer (~2005) Primary thyroid cancer (~2005) Metastatic breast cancer Arthritis Back pain Hx of radiation therapy History of chemotherapy GERD (gastroesophageal reflux disease) History of anxiety Depression Lab test negative for COVID-19 virus History of palpitations ISH on CPAP Vaginal lesion Shortness of breath Post-surgical hypothyroidism (~2005) Atelectasis of right lung Surgical History Hx of cataract surgery Status post fine needle aspiration Hx of chest tube placement (~2020) History of total right knee replacement (TKR) (~2016) History of colonoscopy (~2018) History of endoscopy (~2018) History of partial mastectomy (~2005) History of thyroidectomy (~2005) Family History Father Alzheimer's disease HTN (hypertension) Mother CHF (congestive heart failure) Renal failure PVD (peripheral vascular disease) HTN (hypertension) Macular degeneration Maternal Grandfather CVD (cardiovascular disease) Myocardial infarction Maternal Grandmother Stomach cancer CVD (cardiovascular disease) Paternal Grandfather Black lung disease Paternal Grandmother No problems noted. Brother Substance use disorder Sister No problems noted. Son No problems noted. Son No problems noted. Family/Other History of breast cancer Maternal Uncle Colon cancer Social History Household Members: Spouse Housing: House Are you a primary client care coordinator to a significant other at home: No Do you presently have visiting nurse or other home services: No Alcohol intake: former Comment: no skin breakdown noted Patient Tobacco Use Status: Former Tobacco user Tobacco use type: Cigarette Cigarette Packs Per Day: 1 Years Smoked: 10 yrs e-Cigarette/Vaping Use: Never Used service: No Current occupational status: retired Sexual orientation: Straight/Heterosexual Gender identity: Female Cognitive needs: No Hearing needs: No Vision needs: Yes Physical Exam Vital Signs: BMI result Body Mass Index 27.1 Const Other: There is a healed scar status post thyroidectomy . There is no cervical adenopathy palpated. Reflexes 2+ DTR. Heart is S1-S2 with regular rate and rhythm Assessment & Plan Assessment & Plan (1) Primary thyroid cancer: Onset Date: ~2005 Comment: dx Papillary Thyroid Cancer, stage 1 - 06/16/2005, s/p surgery (02/07/06) & DAWSON (107.7 mCi) 04/13/06 Code(s): C73 - Malignant neoplasm of thyroid gland Category: Medical Plan: This is a 68-year-old white female with a history of papillary thyroid cancer status post thyroidectomy in 2005 with radioactive iodine therapy in 2006 with persistent anti-thyroglobulin antibodies. She appears to be clinically and biochemically euthyroid on 88 mcg levothyroxine . Neck ultrasounds in the past not showed the persistence or presence of thyroid cancer. She saw Dr. Awad who recommended following the anti-thyroglobulin antibodies serailly. Thyroglobulin antibodies have been stable including recent level. Neck ultrasound on 07/18/2022 shows the absence of any abnormal lymph nodes The plan is to continue the current treatment. Will have patient follow up with Dr. West in 6 months who has expertise in neck ultrasound Coding Level of Care Code Est Pt Level 3 (30882) Diagnoses Primary thyroid cancer C73
[2023-12-24 15:56] VITALS: BP 140/74; PULSE 69; BMI 27.1
== END 2023-12-24 16:12 | disposition home or self-care (01) ==
PROVIDERS: PCP Internal Medicine; Visit Provider Internal Medicine Endocrinology, Diabetes & Metabolism
DX: C73 Malignant neoplasm of thyroid gland (principal)
CPT/HCPCS: 99213

== ENCOUNTER → 2023-12-24 15:49 | Outpatient (BNVA) | payer MEDICARE, MEDICAID, SELFPAY | PROVIDERS: PCP Internal Medicine; Visit Provider Internal Medicine Endocrinology, Diabetes & Metabolism | DX: C73 Malignant neoplasm of thyroid gland (principal) | CPT/HCPCS: 99212 ==

== ENCOUNTER 2023-12-25 08:30 | Outpatient (REF) | payer MEDICARE, MEDICAID, SELFPAY ==
[2023-12-25 16:15] LABS: Urine Cytology See Pathology rpt
[2023-12-25 16:27] LABS: Appearance Urine Clear; Color Urine Yellow; Glucose Urine UA Negative (Negative); Leukocyte Esterase Urine Negative (Negative); Nitrite Urine Negative (Negative); UMIC TRIGGER UA YES; Urine Blood Small (1+) (Negative); Urine Ketones Negative (Negative); Urine Protein Negative (Neg-Trace)
[2023-12-25 16:42] LABS: Bacteria Urine None Seen (None Seen); Hyaline Casts Urine 0-2 /LPF (0-2); RBC Urine 0-2 /HPF (0-2); Squamous Epithelial Cell Urine 0-2 /HPF (0-2); WBC Urine 0-5 /HPF (0-5)
== END 2023-12-25 08:31 | disposition home or self-care (01) ==
LOC: HO.HMGCLNP 08:30
PROVIDERS: PCP Internal Medicine; Visit Provider Internal Medicine
DX: R31.29 Other microscopic hematuria (principal); R30.0 Dysuria
CPT/HCPCS: 81001; 87086; 88112

== ENCOUNTER → 2024-01-02 09:42 | Outpatient (REF) | payer MEDICARE, MEDICAID, SELFPAY ==
--- NOTE | 2024-01-02 09:45 | CA_ITS ---
Transthoracic Echocardiogram Patient (Last, First, Middle): Flaca Nice, Gender: Female Date of : 1955 Age: 68 Procedure Date: 01/02/2024 Procedure Type: Transthoracic Echocardiogram Location: OP Height: 160.02 cm Weight: 68.95 kg BSA: 1.72 m2 Heart Rate: bpm BP: 130 / 82 mmHg Media Planner: MEI Referring MD: Shaun Eubanks MD Integration Engineer: Quintin Knight MD Symptoms: R00.2 - Palpitations Study Quality: Fair ECG Rhythm: Sinus Conclusions: - 1. Normal LV ejection fraction 55-60% with impaired relaxation filling pattern 2. Calcific aortic valve changes noted with normal cardiac valvular Dopplers 3. Normal RV systolic pressure 4. No gross pericardial effusion Findings Left Ventricle Normal left ventricular size, thickness, and systolic function. The visually estimated ejection fraction is between 55-60%. Spectral Doppler is indicative of an impaired relaxation filling pattern. E/E prime ratio is between 8 and 15 consistent with indeterminate filling pressures. Right Ventricle Normal right ventricular cavity size and systolic function. Atria Both atria are normal in size. There is no evidence of interatrial shunt. Aortic Valve There is mild calcification of the aortic valve. There is no aortic valve stenosis. There is no aortic valve regurgitation. Mitral Valve Normal mitral valve structure and function. There is trace mitral valve regurgitation. There is no mitral valve stenosis. Pulmonic Valve The pulmonic valve is likely normal. Tricuspid Valve Likely normal tricuspid valve structure and function. There is trace tricuspid valve regurgitation. The right ventricular systolic pressure is normal. The right ventricular systolic pressure is 20 mmHg. Normal right atrial pressure. There is no evidence of pulmonary hypertension. Great Vessels All visible segments of the aorta are normal in size. The pulmonary artery was not well visualized. There is no dilatation of the ascending aorta measuring 3.00 cm. Small plaque is seen in the sino tubular ridge. Venous The inferior vena cava is normal in size and collapses greater than 50% with inspiration. Pericardium/Pleural There is no evidence of pericardial effusion. Measurements 2D Linear Measurements IVSd: 0.68 0.6-0.9/0.6-1.0 cm LVIDd: 5.24 3.9-5.3/4.2-5.9 cm LVIDd Index: 3.05 2.4-3.2/2.2-3.1 cm/m2 LVIDs: 3.31 2.0-3.6 cm LVPWd: 0.88 0.7-1.1 cm LA Diam: 3.00 2.7-3.8/3.0-4.0 cm LAIDs Index: 1.74 1.5-2.3 cm/m2 LV Mass: 176.94 67-162/88-224 g LV Mass Index: 102.87 43-95/49-115 g/m2 LVOT Diam: 1.80 3.0+(-)1.3 cm 2D Systolic Function EF 4C: 51.60 >55% EF 2C: 62.90 >55% EF BiP: 55.00 >55% Mitral Valve MV Pk E: 0.92 MV PK A: 0.71 MV Decel Time: 246.00 E/A: 1.30 E'Lateral: 8.49 E'Medial: 6.85 E/E' Med: 13.40 E/E' Lat: 10.80 PHT: 72.00 MVA PHT: 3.06 Decel [place]: 3.73 Aortic Valve AoV Pk Dante: 1.38 AoV Mn Dante: 1.01 AoV VTI: 0.37 AoV Pk Grad: 8.00 Aov Mn Grad: 5.00 FANNY Cont.VTI: 1.59 LVOT LVOT Pk Dante: 0.93 LVOT Mn Dante: 0.66 LVOT VTI: 0.23 LVOT Pk Grad: 3.00 LVOT Mn Grad: 2.00 LVOT Diam: 1.80 LVOT Area: 2.54 Diastolic Function MV Pk E: 0.92 MV Pk A: 0.71 E/A: 1.30 E'Medial: 6.85 E/E' Med: 13.40 E' Laterial: 8.49 E/E' Lat: 10.80 Right Ventricle TAPSE (mm): 24.80 TVS' Dante: 9.14 Tricuspid Valve TR Pk Dante: 2.04 TR Pk Grad: 17.00 RA Press: 3.00 RVSP: 20.00 Great Vessels Aorta Sinus of Valsalva: 2.76 2.0-3.[address] [place]: 1.93 1.7-3.4 cm Ao Asc: 3.00 2.1-3.4 cm Updated in Other Vendor System with Status of Final Quintin Knight MD electronically signed on 01/03/2024 11:35:15 AM with status of Final
--- NOTE | 2024-01-02 09:45 | HM_ITS ---
* Total monitoring time 3 days. * Underlying rhythm is sinus with an average rate of 69/Min. * Rare supraventricular ectopy. * Rare ventricular ectopy. * No significant pauses or high-grade AV blocks. * Patient markers used in association with sinus rhythm and supraventricular ectopy. * Palpitations, cramping in chest, chest pressure, in patient diary associated with sinus rhythm. MTDD
== END ==
LOC: HO.CARD 09:42
PROVIDERS: PCP Internal Medicine; Visit Provider Internal Medicine Cardiovascular Disease
DX: R00.2 Palpitations (principal)
CPT/HCPCS: 93242; 93306

== ENCOUNTER → 2024-01-02 09:45 | Outpatient (BNV) | payer MEDICARE, MEDICAID, SELFPAY | PROVIDERS: PCP Internal Medicine; Visit Provider Internal Medicine Cardiovascular Disease | DX: I47.10 Supraventricular tachycardia, unspecified (principal) | CPT/HCPCS: 93244; 93306 ==

== ENCOUNTER 2024-03-03 11:28 | Outpatient (AMB) | payer MEDICARE, MEDICAID, SELFPAY ==
[2024-03-03 11:47] VITALS: BP 135/78; PULSE 75; O2SAT 98; BMI 26.9
--- NOTE | 2024-03-03 11:47 | MHC.PC.OV ---
Vital Signs 03/03/24 11:47 Height 5 ft 3 in Weight 152 lb BMI 26.9 BP 135/78 Blood Pressure Location Rt brachial Position Sitting Pulse 75 Pulse Source Pulse Oximeter Pulse Oximetry (%) 98 Oxygen Delivery Method Room Air Intake Visit Reasons: LT ear pain/ nose & eyes hurt Intake Note: Pt is here today for a sick visit. Pt c/o E ear pain, sinus pain and pressure. Pt also states that she her lymph nodes are swollen. Pt states that she has been having nausea, vomiting and diarrhea. Pt has no appetite. Pt states that she had urine test done in [place] and had some abnormal cells. Allergies Sulfa (Sulfonamide Antibiotics) Allergy (Severe, Verified 03/03/24 11:50) lip swelling, facial swelling sulfamethoxazole [From BACTRIM] Allergy (Severe, Verified 03/03/24 11:50) FACE/LIP SWELLING adhesive tape [ADHESIVE TAPE] Allergy (Intermediate, Verified 03/03/24 11:50) BLISTERS,SKIN SLOUGHING amlodipine Adverse Reaction (Intermediate, Verified 03/03/24 11:50) Palpitations Medication List - Last Reconciled 03/03/24 by Celsa Lyn MD aspirin 81 mg PO DAILY atorvastatin 40 mg PO BEDTIME bisacodyl (Woman's Laxative (bisacodyl)) 10 mg PO BEDTIME PRN chlorhexidine gluconate 0.12% 15 mL buccal DAILY cholecalciferol (vitamin D3) 10 mcg PO BEDTIME CPAP As directed fluoxetine 40 mg (2 x 20 mg) PO QAM letrozole 2.5 mg PO DAILY levothyroxine 88 mcg PO DAILY ondansetron 4 mg PO Q6H PRN palbociclib 125 mg PO DAILY propranolol ER 120 mg PO Q24H valacyclovir 1,000 mg PO DAILY Tobacco use date assessed: 03/03/24 Dental Screening Dental Screen Date: 10/10/23 HPI LT ear pain/ nose & eyes hurt HPI Details Pt c/o of chronic L ear and jaw and L side of neck pain worse when moving to the side for a few months. Patient had hearing test was found to have decreased hearing in both ears. She complains of chronic tinnitus. Patient denies fever chills sore throat headache. She is undergoing treatment for metastatic breast CA with oncology. Patient complains of chronic head tremor getting worse recently. She complains of chronic constipation and change in the stool shape, becoming more pencil like. Patient had negative colonoscopy 2 years ago. She denies nausea vomiting hematochezia melena, weight loss. [facility] Medical History (Updated 03/03/24 @ 13:10 by Celsa Lyn MD) Herpes simplex type 2 infection Pleural effusion, malignant (~2019) Chest tube in place Osteopenia History of right breast cancer (~2005) Primary thyroid cancer (~2005) Metastatic breast cancer Arthritis Back pain Hx of radiation therapy History of chemotherapy GERD (gastroesophageal reflux disease) History of anxiety Depression Lab test negative for COVID-19 virus History of palpitations ISH on CPAP Vaginal lesion Shortness of breath Post-surgical hypothyroidism (~2005) Atelectasis of right lung Surgical History Hx of cataract surgery Status post fine needle aspiration Hx of chest tube placement (~2020) History of total right knee replacement (TKR) (~2016) History of colonoscopy (~2018) History of endoscopy (~2018) History of partial mastectomy (~2005) History of thyroidectomy (~2005) Family History Father Alzheimer's disease HTN (hypertension) Mother CHF (congestive heart failure) Renal failure PVD (peripheral vascular disease) HTN (hypertension) Macular degeneration Maternal Grandfather CVD (cardiovascular disease) Myocardial infarction Maternal Grandmother Stomach cancer CVD (cardiovascular disease) Paternal Grandfather Black lung disease Paternal Grandmother No problems noted. Brother Substance use disorder Sister No problems noted. Son No problems noted. Son No problems noted. Family/Other History of breast cancer Maternal Uncle Colon cancer Social History Household Members: Spouse Housing: House Are you a primary senior care assistant to a significant other at home: No Do you presently have visiting nurse or other home services: No Alcohol intake: former Comment: no skin breakdown noted Patient Tobacco Use Status: Former Tobacco user Tobacco use type: Cigarette Cigarette Packs Per Day: 1 Years Smoked: 10 yrs e-Cigarette/Vaping Use: Never Used service: No Current occupational status: retired Sexual orientation: Straight/Heterosexual Gender identity: Female Cognitive needs: No Hearing needs: No Vision needs: Yes Questionnaire Thrive Questionnaire Date Thrive assessed: 10/10/23 I am a: Patient What is your living situation today?: I have a steady place to live Within the past 12 months, did the food you bought not last and you didn't have the money to get more?: I choose not to answer this question Within the past 12 months, did you worry whether your food would run out before you got money to buy more?: I choose not to answer this question Do you have trouble paying for medicines?: I choose not to answer this question Do you have trouble getting transportation to medical appointments?: I choose not to answer this question Do you have trouble paying your heating and electricity bill?: I choose not to answer this question Do you have trouble taking care of your child, family member or friend?: I choose not to answer this question Do you have trouble with day-to-day activities such as bathing, preparing meals, shopping, managing finances, etc.?: I choose not to answer this question Are you currently unemployed and looking for a job?: I choose not to answer this question Are you interested in more education?: No Please select the resources that you would like help with: Daily support Currently or been in a relationship where the following occur: No concerns reported THRIVE Score: 0 COLETTE-7 AMB Questionnaire COLETTE-7 Date COLETTE - 7 assessed: 10/10/23 Source: Developed by Drs. Raul Anderson, Elisabeth Ryder, Christiano Najera and colleagues, with an educational garrett from [employer]. Review of Systems Const All systems reviewed & are unremarkable except as noted in HPI and below Reports no additional complaints Eyes Reports no additional complaints ENT Reports no additional complaints Card Reports no additional complaints Resp Reports no additional complaints GI Reports no additional complaints Reports no additional complaints Physical exam (Primary Care) Vital Signs: Last Vital Signs Pulse 75 03/03/24 11:47 Pulse Ox 98 03/03/24 11:47 Oxygen Delivery Method Room Air 03/03/24 11:47 BMI result Body Mass Index 26.9 Tobacco/Smoking Status: Tobacco use Status Tobacco use date assessed 03/03/24 03/03/24 11:55 Patient Tobacco Use Status Former Tobacco user 03/03/24 11:55 Tobacco use type Cigarette 03/03/24 11:55 e-Cigarette/Vaping Use Never Used 03/03/24 11:55 Thrive Assessment: Date of Thrive Assessment Date Thrive assessed 10/10/23 03/03/24 11:55 Currently or been in a relationship where the following occur: No concerns reported Const General: no acute distress HENMT Other: This reproducible tenderness over left TMJ Head: Yes normal to inspection Ears: TM's normal bilaterally Mouth: Normal oral and palatal mucosa present Throat: Yes posterior oropharynx normal Neck Other: There is a tenderness over left sternocleidomastoid, no masses Neck: Yes no lymphadenopathy and Yes supple Thyroid: Thyroid normal Resp Effort & Inspection: normal respiratory effort Auscultation: clear to auscultation bilaterally Cardio Rhythm: regular rhythm Heart sounds: S1 normal heart sound present and S2 normal heart sound present GI Inspection: Yes normal to inspection Palpation (GI): Soft to palpation Percussion: Yes normal to percussion Auscultation: normal bowel sounds Coding Level of Care Code Est Pt Level 5 (94088) Complex EM visit Add On G2211 Diagnoses Essential hypertension I10 Hyperlipidemia, unspecified hyperlipidemia type E78.5 Hyperlipidemia type: unspecified TMJ arthralgia M26.629 Metastatic breast cancer C50.919 Post-surgical hypothyroidism E89.0 Constipation K59.00 Depression F32.9 Benign head tremor G25.0 Assessment & Plan Assessment & Plan (1) Essential hypertension: Code(s): I10 - Essential (primary) hypertension Category: Medical Plan: Continue propranolol (2) Hyperlipidemia: Code(s): E78.5 - Hyperlipidemia, unspecified Category: Medical Qualifiers: Hyperlipidemia type: unspecified Qualified Code(s): E78.5 - Hyperlipidemia, unspecified Plan: Continue atorvastatin (3) TMJ arthralgia: Code(s): M26.629 - Arthralgia of temporomandibular joint, unspecified side Category: Medical Plan: Check sed rate and follow-up with dentist (4) Metastatic breast cancer: Comment: ([facility] Rt breast s/p lumpectomy/chemo/radiation in 2005 - now has malignant right pleural effusion) Code(s): C50.919 - Malignant neoplasm of unspecified site of unspecified female breast Category: Medical Plan: Follow-up with oncology (5) Post-surgical hypothyroidism: Onset Date: ~2005 Code(s): E89.0 - Postprocedural hypothyroidism Category: Medical Plan: Continue levothyroxine (6) Constipation: Comment: NEGATIVE COLONOSCOPY GI WORKUP in 2021 Code(s): K59.00 - Constipation, unspecified Category: Medical Plan: Increase fiber and fluids intake and trying stool softener discussed with the patient (7) Depression: Code(s): F32.9 - Major depressive disorder, single episode, unspecified Category: Medical Plan: Continue fluoxetine and counseling (8) Benign head tremor: Code(s): G25.0 - Essential tremor Category: Medical Plan: Referred to neurology Orders: Orders Complete Blood Count Auto Diff Today E78.5 - Hyperlipidemia, unspecified, I10 - Essential (primary) hypertension, Z00.00 - Encounter for general adult medical examination without abnormal findings Comprehensive Met. Panel Today E78.5 - Hyperlipidemia, unspecified, I10 - Essential (primary) hypertension, Z00.00 - Encounter for general adult medical examination without abnormal findings UA w Microscopic Today Z00.00 - Encounter for general adult medical examination without abnormal findings TSH reflex Free T4 Today E78.5 - Hyperlipidemia, unspecified, I10 - Essential (primary) hypertension, Z00.00 - Encounter for general adult medical examination without abnormal findings Erythrocyte Sedimentation Rate Today E78.5 - Hyperlipidemia, unspecified, I10 - Essential (primary) hypertension, Z00.00 - Encounter for general adult medical examination without abnormal findings Referrals Gastroenterology Referral Z00.00 - Encounter for general adult medical examination without abnormal findings Neurology Referral G25.0 - Essential tremor
== END 2024-03-03 16:15 | disposition home or self-care (01) ==
PROVIDERS: PCP Internal Medicine; Visit Provider Internal Medicine
DX: I10 Essential (primary) hypertension (principal); E78.5 Hyperlipidemia, unspecified; M26.629 Arthralgia of temporomandibular joint, unspecified side; C50.911 Malignant neoplasm of unspecified site of right female breast; E89.0 Postprocedural hypothyroidism; K59.00 Constipation, unspecified; F32.9 Major depressive disorder, single episode, unspecified; G25.0 Essential tremor

== ENCOUNTER 2024-03-03 11:28 | Outpatient (REF) | payer MEDICARE, MEDICAID, SELFPAY ==
[2024-03-03 16:42] LABS: Appearance Urine Clear; Color Urine Yellow; Glucose Urine UA Negative (Negative); Leukocyte Esterase Urine Negative (Negative); Nitrite Urine Negative (Negative); Specific Gravity - Urine <= 1.005 (1.005-1.025); UMIC TRIGGER UA YES; Urine Blood Moderate (2+) (Negative); Urine Ketones Negative (Negative); Urine Protein Negative (Neg-Trace)
[2024-03-03 16:45] LABS: Bacteria Urine None Seen (None Seen); Hyaline Casts Urine 0-2 /LPF (0-2); Squamous Epithelial Cell Urine 0-2 /HPF (0-2); WBC Urine 0-5 /HPF (0-5)
[2024-03-03 17:01] LABS: Basophils Absolute Auto 0.1 X10*3/uL (0.0-0.2); Basophils Percent Auto 2.5 % (0-2); Eosinophils Absolute Auto 0.1 X10*3/uL (0.0-0.4); Eosinophils Percent Auto 1.6 % (0-4); Hematocrit 35.1 % (37.0-47.0); Hemoglobin 12.6 g/dl (12.0-16.0); Imm Gran Abs Auto 0.01 X10*3/uL (0.00-0.03); Imm Gran Pct Auto 0.3 % (0.0-0.4); Lymphocytes Absolute Auto 1.6 X10*3/uL (1.2-4.9); Lymphocytes Percent Auto 49.5 % (20-40); Mean Corpuscular HGB Conc 35.9 g/dl (31.0-35.0); Mean Corpuscular Hemoglobin 39.4 pg (27.0-33.0); Mean Corpuscular Volume 109.7 fL (80.0-98.0); Mean Platelet Volume 9.7 fL (9.4-12.3); Monocytes Absolute Auto 0.5 X10*3/uL (0.1-1.2); Neutrophils Percent Auto 30.1 % (45-73); Platelet Count 207 X10*3/uL (160-400); Red Cell Distribution Width 12.5 % (11.0-16.0); SCAN SMEAR FLAG 1; White Blood Count 3.2 X10*3/uL (4.8-10.8)
[2024-03-03 17:11] LABS: MANUAL DIFF FLAG SCAN
[2024-03-03 17:31] LABS: SLIDE REVIEW VERIFIED
[2024-03-03 17:32] LABS: Alanine Aminotransferase 11 U/L (0-31); Albumin Level 4.1 g/dL (3.5-5.0); Alkaline Phosphatase 81 U/L (39-117); Anion Gap 10 (12-20); Aspartate Amino Transferase 25 U/L (5-31); Bilirubin Total 0.4 mg/dL (0.0-1.0); Blood Urea Nitrogen 12 mg/dL (9-16); Calcium 8.2 mg/dL (8.4-10.2); Carbon Dioxide 28 mmol/L (22-29); Chloride 103 mmol/L (96-108); Estimated Glomerular Filt Rate > 60; Glucose Random 105 mg/dL (60-115); Sodium 137 mmol/L (135-145); Total Protein 7.5 g/dL (6.5-8.0)
[2024-03-03 17:40] LABS: TSH reflex Free T4 0.78 uIU/mL (0.32-4.0)
[2024-03-03 17:45] LABS: Erythrocyte Sedimentation Rate 57 MM/HR (0-20)
== END 2024-03-03 11:29 | disposition home or self-care (01) ==
LOC: HO.HMGCLDS 11:28
PROVIDERS: PCP Internal Medicine; Visit Provider Internal Medicine
DX: I10 Essential (primary) hypertension (principal); E78.5 Hyperlipidemia, unspecified; E89.0 Postprocedural hypothyroidism; K59.00 Constipation, unspecified; F32.9 Major depressive disorder, single episode, unspecified; G25.0 Essential tremor
CPT/HCPCS: 36415; 80053; 81001; 84443; 85025; 85652; 99212

== ENCOUNTER 2024-03-14 12:24 | Outpatient (REF) | payer MEDICARE, MEDICAID, SELFPAY ==
[2024-03-14 16:48] LABS: Parathyroid Hormone Intact 62.9 pg/mL (8.7-77.1); Vitamin D 25-OH Total 26.6 ng/mL (>30)
== END 2024-03-14 12:25 | disposition home or self-care (01) ==
LOC: HO.HMGCLDS 12:24
PROVIDERS: PCP Internal Medicine; Visit Provider Internal Medicine
DX: R31.29 Other microscopic hematuria (principal); E83.51 Hypocalcemia
CPT/HCPCS: 36415; 82306; 82330; 83970

== ENCOUNTER 2024-03-24 12:53 | Outpatient (REF) | payer MEDICARE, MEDICAID, SELFPAY ==
--- NOTE | ~2024-03-24 | US_ITS ---
EXAMINATION: US RETROPERITONEAL COMPLETE (RENAL) CLINICAL INFORMATION: Other microscopic hematuria. COMPARISON: . Renal ultrasound 11/03/2019. Ultrasound abdomen complete 10/01/2017. Correlated to CT dated 08/26/2021 TECHNIQUE: Real-time imaging of the kidneys and bladder using grayscale and color Doppler technique. FINDINGS: The submitted for interpretation on March 31, 2024. RIGHT KIDNEY: 11 x 3 x 5 cm (SAG x AP x TRV). Volume is 91 cc. The kidney is normal in size, contour, and echogenicity. Renal cortical thickness is normal. No calculi or focal parenchymal lesions. No hydronephrosis. No solid or cystic lesion. Normal color Doppler interrogation of the renal hilum.. LEFT KIDNEY: 10 x 5 x 5 cm (SAG x AP x TRV). Volume is 122 cc. The kidney is normal in size, contour, and echogenicity. Renal cortical thickness is normal. No calculi or focal parenchymal lesions. No solid or cystic lesion. No hydronephrosis are normal flow on color Doppler interrogation of the renal hilum. BLADDER: Fluid-filled. Bilateral ureteral jets are demonstrated. Prevoid bladder volume is 160 mL. Postvoid bladder volume is 5 mL. US/US retroperitoneal comp IMPRESSION: No hydronephrosis. 5 cc of residual urine in a post void image. Normal renal ultrasound.. Electronically signed by: Chidi Bravo MD 03/31/2024 10:53 AM EST
== END 2024-03-24 12:54 | disposition home or self-care (01) ==
LOC: HO.HMGCX 12:53
PROVIDERS: PCP Internal Medicine; Visit Provider Internal Medicine
DX: R31.29 Other microscopic hematuria (principal); E83.51 Hypocalcemia
CPT/HCPCS: 76770

== ENCOUNTER → 2024-03-24 12:56 | Outpatient (BNV) | payer MEDICARE, MEDICAID, SELFPAY | PROVIDERS: PCP Internal Medicine; Visit Provider Radiology Diagnostic Radiology | DX: R31.29 Other microscopic hematuria (principal) | CPT/HCPCS: 76770 ==

== ENCOUNTER 2024-03-25 10:55 | Outpatient (AMB) | payer MEDICARE, MEDICAID, SELFPAY ==
[2024-03-25 11:04] VITALS: BP 134/80; PULSE 69; O2SAT 100; BMI 26.7
--- NOTE | 2024-03-25 11:04 | A.OFFPC_ITS ---
Vital Signs 03/25/24 11:04 Height 5 ft 3 in Weight 151 lb BMI 26.7 BP 134/80 Blood Pressure Location Lt brachial Position Sitting Pulse 69 Pulse Source Pulse Oximeter Pulse Oximetry (%) 100 Oxygen Delivery Method Room Air Intake Visit Reasons: followup abd pain Intake Note: Pt is here today for a follow up visit on abdominal pain. Allergies Sulfa (Sulfonamide Antibiotics) Allergy (Severe, Verified 03/25/24 11:24) lip swelling, facial swelling sulfamethoxazole [From BACTRIM] Allergy (Severe, Verified 03/25/24 11:24) FACE/LIP SWELLING adhesive tape [ADHESIVE TAPE] Allergy (Intermediate, Verified 03/25/24 11:24) BLISTERS,SKIN SLOUGHING amlodipine Adverse Reaction (Intermediate, Verified 03/25/24 11:24) Palpitations Medication List - Last Reconciled 03/25/24 by Celsa Lyn MD aspirin 81 mg PO DAILY atorvastatin 40 mg PO BEDTIME bisacodyl (Woman's Laxative (bisacodyl)) 10 mg PO BEDTIME PRN chlorhexidine gluconate 0.12% 15 mL buccal DAILY cholecalciferol (vitamin D3) 10 mcg PO BEDTIME CPAP As directed fluoxetine 40 mg (2 x 20 mg) PO QAM letrozole 2.5 mg PO DAILY levothyroxine 88 mcg PO DAILY ondansetron 4 mg PO Q6H PRN palbociclib 125 mg PO DAILY propranolol ER 120 mg PO Q24H valacyclovir 1,000 mg PO DAILY Tobacco use date assessed: 03/03/24 Dental Screening Dental Screen Date: 10/10/23 HPI followup abd pain HPI Details Pt presents for chronic abd pain, constipation. Pt could not tolerate stool softener but has been increasing fiber intake and using MiraLax as needed. [facility] Medical History Herpes simplex type 2 infection Pleural effusion, malignant (~2019) Chest tube in place Osteopenia History of right breast cancer (~2005) Primary thyroid cancer (~2005) Metastatic breast cancer Arthritis Back pain Hx of radiation therapy History of chemotherapy GERD (gastroesophageal reflux disease) History of anxiety Depression Lab test negative for COVID-19 virus History of palpitations ISH on CPAP Vaginal lesion Shortness of breath Post-surgical hypothyroidism (~2005) Atelectasis of right lung Surgical History Hx of cataract surgery Status post fine needle aspiration Hx of chest tube placement (~2020) History of total right knee replacement (TKR) (~2016) History of colonoscopy (~2018) History of endoscopy (~2018) History of partial mastectomy (~2005) History of thyroidectomy (~2005) Family History Father Alzheimer's disease HTN (hypertension) Mother CHF (congestive heart failure) Renal failure PVD (peripheral vascular disease) HTN (hypertension) Macular degeneration Maternal Grandfather CVD (cardiovascular disease) Myocardial infarction Maternal Grandmother Stomach cancer CVD (cardiovascular disease) Paternal Grandfather Black lung disease Paternal Grandmother No problems noted. Brother Substance use disorder Sister No problems noted. Son No problems noted. Son No problems noted. Family/Other History of breast cancer Maternal Uncle Colon cancer Social History Household Members: Spouse Housing: House Are you a primary resident care coordinator to a significant other at home: No Do you presently have visiting nurse or other home services: No Alcohol intake: former Comment: no skin breakdown noted Patient Tobacco Use Status: Former Tobacco user Tobacco use type: Cigarette Cigarette Packs Per Day: 1 Years Smoked: 10 yrs Packs Per Year: 0 e-Cigarette/Vaping Use: Never Used service: No Current occupational status: retired Sexual orientation: Straight/Heterosexual Gender identity: Female Cognitive needs: No Hearing needs: No Vision needs: Yes Questionnaire Thrive Questionnaire Date Thrive assessed: 10/10/23 I am a: Patient What is your living situation today?: I have a steady place to live Within the past 12 months, did the food you bought not last and you didn't have the money to get more?: I choose not to answer this question Within the past 12 months, did you worry whether your food would run out before you got money to buy more?: I choose not to answer this question Do you have trouble paying for medicines?: I choose not to answer this question Do you have trouble getting transportation to medical appointments?: I choose not to answer this question Do you have trouble paying your heating and electricity bill?: I choose not to answer this question Do you have trouble taking care of your child, family member or friend?: I choose not to answer this question Do you have trouble with day-to-day activities such as bathing, preparing meals, shopping, managing finances, etc.?: I choose not to answer this question Are you currently unemployed and looking for a job?: I choose not to answer this question Are you interested in more education?: No Please select the resources that you would like help with: Daily support Currently or been in a relationship where the following occur: No concerns reported THRIVE Score: 0 COLETTE-7 AMB Questionnaire COLETTE-7 Date COLETTE - 7 assessed: 10/10/23 Source: Developed by Drs. Raul Anderson, Elisabeth yRder, Christiano Najera and colleagues, with an educational garrett from [employer]. Review of Systems Const All systems reviewed & are unremarkable except as noted in HPI and below ENT Reports no additional complaints Card Reports no additional complaints Resp Reports no additional complaints GI Reports no additional complaints Reports no additional complaints Physical exam (Primary Care) Vital Signs: Last Vital Signs Pulse 69 03/25/24 11:04 BP 134/80 03/25/24 11:04 Pulse Ox 100 03/25/24 11:04 Oxygen Delivery Method Room Air 03/25/24 11:04 BMI result Body Mass Index 26.7 Tobacco/Smoking Status: Tobacco use Status Tobacco use date assessed 03/03/24 03/25/24 11:05 Patient Tobacco Use Status Former Tobacco user 03/25/24 11:05 Tobacco use type Cigarette 03/25/24 11:05 e-Cigarette/Vaping Use Never Used 03/25/24 11:05 Thrive Assessment: Date of Thrive Assessment Date Thrive assessed 10/10/23 03/25/24 11:05 Currently or been in a relationship where the following occur: No concerns reported Const General: no acute distress HENMT Head: Yes normal to inspection Neck Neck: Yes supple Resp Effort & Inspection: normal respiratory effort Auscultation: clear to auscultation bilaterally Cardio Rhythm: regular rhythm Heart sounds: S1 normal heart sound present and S2 normal heart sound present GI Inspection: Yes normal to inspection Palpation (GI): Soft to palpation Percussion: Yes normal to percussion Auscultation: normal bowel sounds Coding Level of Care Code Est Pt Level 4 (75405) Diagnoses Microscopic hematuria R31.29 Constipation K59.00 Hyperlipidemia, unspecified hyperlipidemia type E78.5 Hyperlipidemia type: unspecified Palpitations R00.2 Metastatic breast cancer C50.919 Assessment & Plan Assessment & Plan (1) Microscopic hematuria: Comment: chronic, negative cystoscopy by urogynecologist at [facility] years ago Code(s): R31.29 - Other microscopic hematuria Category: Medical Plan: for worsening microscopic hematuria renal and bladder ultrasound will obtain . patient will be referred to urogynecologist at [facility] per her request (2) Constipation: Comment: NEGATIVE COLONOSCOPY GI WORKUP in 2021 Code(s): K59.00 - Constipation, unspecified Category: Medical Plan: Continue increasing fiber and fluid intake patient requested referral to GI (3) Hyperlipidemia: Code(s): E78.5 - Hyperlipidemia, unspecified Category: Medical Qualifiers: Hyperlipidemia type: unspecified Qualified Code(s): E78.5 - Hyperlipidemia, unspecified Plan: Continue statin (4) Palpitations: Comment: On propranolol, follow-up with Cardiology Code(s): R00.2 - Palpitations Category: Medical Plan: Continue propranolol (5) Metastatic breast cancer: Comment: ([facility] Rt breast s/p lumpectomy/chemo/radiation in 2006 - now has malignant right pleural effusion) Code(s): C50.919 - Malignant neoplasm of unspecified site of unspecified female breast Category: Medical Plan: Follow-up with oncology Orders: Referrals Urogynecology Referral R31.29 - Other microscopic hematuria Gastroenterology Referral K59.00 - Constipation, unspecified
== END 2024-03-25 15:23 | disposition home or self-care (01) ==
PROVIDERS: PCP Internal Medicine; Visit Provider Internal Medicine
DX: R31.29 Other microscopic hematuria (principal); C50.919 Malignant neoplasm of unspecified site of unspecified female breast; K59.00 Constipation, unspecified; E78.5 Hyperlipidemia, unspecified; R00.2 Palpitations

== ENCOUNTER → 2024-03-25 10:55 | Outpatient (BNVA) | payer MEDICARE, MEDICAID, SELFPAY | PROVIDERS: PCP Internal Medicine; Visit Provider Internal Medicine | DX: R31.29 Other microscopic hematuria (principal); K59.00 Constipation, unspecified; E78.5 Hyperlipidemia, unspecified; R00.2 Palpitations | CPT/HCPCS: 99212 ==

== ENCOUNTER 2024-06-12 13:39 | Outpatient (AMB) | payer MEDICARE, MEDICAID, SELFPAY ==
--- NOTE | 2024-06-12 13:42 | MHC.OFFVIS ---
Intake Visit Reasons: microscopic hematuria Intake Note: Patient is present for MICROSCOPIC HEMATURIA Urology Medication:NONE Antibiotic Allergy:SULFA,BACTRIM Blood Thinner:ASPIRIN TODAY'S PVR:0ML'S Computer Assistant Required: No Allergies Sulfa (Sulfonamide Antibiotics) Allergy (Severe, Verified 06/12/24 13:44) lip swelling, facial swelling sulfamethoxazole [From BACTRIM] Allergy (Severe, Verified 06/12/24 13:44) FACE/LIP SWELLING adhesive tape [ADHESIVE TAPE] Allergy (Intermediate, Verified 06/12/24 13:44) BLISTERS,SKIN SLOUGHING amlodipine Adverse Reaction (Intermediate, Verified 06/12/24 13:44) Palpitations HPI Comments Details: Flaca is a pleasant female. She is a patient of Dr. Lyn. She is seen for the following urologic conditions - microscopic hematuria Microscopic hematuria Previous evaluation in 2017 normal Recent ultrasound with normal kidneys and bladder emptying UA 200+ Recommend check cystoscopy in office Does have concerns regarding rectocele and cystocele Reports occasional locking of urine Will check at cystoscopy 2 full-term pregnancies with 12 hour labors FOR[facility]LY [facility], [facility] Medical History Herpes simplex type 2 infection Pleural effusion, malignant (~2019) Chest tube in place Osteopenia History of right breast cancer (~2005) Primary thyroid cancer (~2005) Metastatic breast cancer Arthritis Back pain Hx of radiation therapy History of chemotherapy GERD (gastroesophageal reflux disease) History of anxiety Depression Lab test negative for COVID-19 virus History of palpitations ISH on CPAP Vaginal lesion Shortness of breath Post-surgical hypothyroidism (~2005) Atelectasis of right lung Surgical History Hx of cataract surgery Status post fine needle aspiration Hx of chest tube placement (~2020) History of total right knee replacement (TKR) (~2016) History of colonoscopy (~2018) History of endoscopy (~2018) History of partial mastectomy (~2005) History of thyroidectomy (~2005) Family History Father Alzheimer's disease HTN (hypertension) Mother CHF (congestive heart failure) Renal failure PVD (peripheral vascular disease) HTN (hypertension) Macular degeneration Maternal Grandfather CVD (cardiovascular disease) Myocardial infarction Maternal Grandmother Stomach cancer CVD (cardiovascular disease) Paternal Grandfather Black lung disease Paternal Grandmother No problems noted. Brother Substance use disorder Sister No problems noted. Son No problems noted. Son No problems noted. Family/Other History of breast cancer Maternal Uncle Colon cancer Social History Household Members: Spouse Housing: House Are you a primary progressive care manager to a significant other at home: No Do you presently have visiting nurse or other home services: No Alcohol intake: former Comment: no skin breakdown noted Patient Tobacco Use Status: Former Tobacco user Tobacco use type: Cigarette Cigarette Packs Per Day: 1 Years Smoked: 10 yrs e-Cigarette/Vaping Use: Never Used service: No Current occupational status: retired Sexual orientation: Straight/Heterosexual Gender identity: Female Cognitive needs: No Hearing needs: No Vision needs: Yes Review of Systems Const Denies chills and Denies fever(s) Card Reports no additional complaints and Denies syncope Resp Denies cough GI Denies abdominal pain and Denies heartburn Reports as per HPI and Denies change in libido Neuro Denies syncope Psych Denies change in libido Endo Denies change in libido Physical Exam Const General: cooperative, healthy appearing, comfortable and no acute distress Orientation/consciousness: patient oriented x3 HEENT Face and sinus: Yes normal facial exam Mouth: moist mucous membranes Neck Neck: Yes normal visual inspection, Yes full ROM and Yes trachea midline Chest Chest palpation & inspection: normal inspection of the chest Resp Effort & Inspection: normal respiratory effort, able to speak in complete sentences and no respiratory distress GI Inspection: Yes normal to inspection Back/Spine/Pelvis Cervical Spine: normal cervical lordosis Thoracic/Lumbar Spine: thoracic and lumbar spine normal to inspection Skin General skin exam: no rashes or lesions noted Neuro General: patient oriented x3, gait normal, tone normal and moves all extremities Extrem General: Yes normal to inspection and Yes capillary refill normal Office Procedures Post Void Residual Post Residual Void Post Void Residual (PVR): 0 48734-Ocrp Void Residual by ultrasound Results AMB Urinalysis, Automated UA Leukoctes 15 Lv/uL Last Edit by CHRISTELLE Ahumada on 06/12/24 14:07 UA Nitrite Negative Last Edit by CHRISTELLE Ahumada on 06/12/24 14:07 UA Urobilinogen 3.5 mg/dL Last Edit by CHRISTELLE Ahumada on 06/12/24 14:07 UA Protein 15 mg/dL Last Edit by CHRISTELLE Ahumada on 06/12/24 14:07 UA pH 6.0 Last Edit by CHRISTELLE Ahumada on 06/12/24 14:07 UA Blood 200 Onel/uL Last Edit by CHRISTELLE Ahumada on 06/12/24 14:07 UA Specific [place] 1.015 Last Edit by CHRISTELLE Ahumada on 06/12/24 14:07 UA Ketone Negative Last Edit by CHRISTELLE Ahumada on 06/12/24 14:07 UA Bilirubin 0 mg/dL Last Edit by CHRISTELLE Ahumada on 06/12/24 14:07 UA Glucose 0 mg/dL Last Edit by CHRISTELLE Ahumada on 06/12/24 14:07 Assessment & Plan Assessment & Plan (1) Microscopic hematuria: Comment: chronic, negative cystoscopy by urogynecologist at [facility] years ago Code(s): R31.29 - Other microscopic hematuria Category: Medical Plan Office cystoscopy Cytology Orders: Orders AMB Urinalysis Automated Today Z13.9 - Encounter for screening, unspecified Patient Instructions: This note is constructed using voice recognition software. While every effort has been made to ensure accuracy international relations teacher errors may have been included. Imaging studies, laboratory and physical exam results were discussed and reviewed in detail. No major barriers to patient understanding were identified. An opportunity to ask questions regarding the treatment plan was provided. All questions were answered. The patient expressed understanding and agreement with the above treatment plan. The patient is aware they should contact our office by phone for worsening of their current condition or the appearance of new urologic symptoms. Compliance is encouraged with any medications and followup testing that is ordered. It is a privilege to participate in the urologic care of your patient. If you have any questions or concerns regarding treatment for the above conditions, or other urologic issues, please do not hesitate to contact me. The office telephone contact is [phone]. Sincerely, Dr Martinez Tyson MD, [facility] - Urology Compassionate Specialist Care for the Genitourinary System Coding Level of Care Code New Pt Level 3 (54695) Diagnoses Microscopic hematuria R31.29 CPT Codes Post Residual Void - PVR CPT Code: 37983-Bhcg Void Residual by ultrasound ([id number])
--- OUTSIDE RECORDS SUMMARY | 2024-06-12 16:14 | XMS_ITS ---
Author Organization [facility] Care Team Providers Care Assorter Laundry Name Role Phone Raheem Magaña Unavailable Unavailable Allergies and adverse reactions Code CodeSystem Substance Reaction Severity StartDate Concern Status 44330 RXNORM Sulfamethoxazole Unknown 02/02/2017 acti ve adhesive tape Unknown 02/02/2017 active Care Team Name Role Address Phone Organization Dates Raheem Magaña PCP [address], [place], [address], [place] (Office): : [facility] 02/03/2017 - 02/10/2017 Goals Section Description Status Target Date I will acclimate myself with this facility throu gh my next review. Active 05/15/2017 I will be free from discomfo rt or adverse reactions related to antidepressant therapy through my review date. Active 05/15/2017 I will be free of injury through the next review date. Active 05/15/2017 I will demonstrate the appro priate use of adaptive device(s) to increase mobility through the review date. Device: Walker until I am able to return to independent ambulation. Active 8 I will express my need to ch paulo my Advance Directives if I wish to. Active 05/15/2017 I will have no s/sx of poor oxygen absorption using be CPap through the next review date. Active 05/15/2017 I will not have an interrupt ion in normal activities due to pain through my review date. Active 05/15/2017 My discharge goals are to in crease my physical abilities and return home to live Active 05/15/2017 My incision will heal without complications. Act jennifer 05/15/2017 My restraint use will assist me to move independently / 1+ assist with turning in bed by my review date. Active 05/15/2017 Mental Status Section Date Assessment Total Score Description 02/09/2017 CAM 0 No delirium ind icated Problems Problem # Description Date of onset Resolved Date Code CodeSystem Concern Status 1 CARDIAC ARRHYTHMIA, UNSPECIFIED 02/02/[address] active 2 GASTRO-ESOPHAGEAL REFLUX DISEASE WITHOUT ESOPHAGITIS 02/02/[address] active 3 MUSCLE WEAKNESS (GENERALIZED) 02/02/[address] active 4 OTHER LACK OF COORDINATION 02/02/[address] active 5 PRESENCE OF RIGHT ARTIFICIAL KNEE JOINT 02/02/[address] active 6 SLEEP APNEA, UNSPECIFIED 02/02/[address] active 7 UNILATERAL PRIMARY OSTEOARTHRITIS, RIGHT KNEE 02/02/[address] active 8 UNSPECIFIED ABNORMALITIES OF GAIT AND MOBILITY 02/02/[address] active Reason for Referral No Reasons for Referral Entered Social History Social History Observation Description Start Date End Date Code Code System Current Smoking Status Tobacco smoking consumption unknown 304542637 SNOMED CT Sex Assigned At Female 1955 25800-1 [facility] Vital Signs Code Code System Vitals Name Values and Units Timing Information 9279-1 [facility] Respiratory Rate Value=18.0 Units=/m in 02/10/2017 8462-4 [facility] Blood Pressure-Diastolic Value=68 Un its=mmHg 02/10/2017 8480-6 [facility] Blood Pressure-Systolic Zzssz=595 Un its=mmHg 02/10/2017 8310-5 [facility] Body Temperature Value=97.0 Units=?? F 02/10/2017 8867-4 [facility] Heart rate Value=85.0 Units=/min 29711-0 [facility] O2 % dC Oximetry Value=96.0 Units= % 02/10/2017 67411-0 [facility] Pain Level Value=0.0 02/10/2017 31912-2 [facility] Weight Jysgd=319.0 Units=Lbs 8302-2 [facility] Height Value=63.0 Units=Inches 02/03/2017
== END 2024-06-12 14:06 | disposition home or self-care (01) ==
LOC: HO.HUSH 13:40
PROVIDERS: PCP Internal Medicine; Visit Provider Urology
DX: Z13.9 Encounter for screening, unspecified (principal); R31.29 Other microscopic hematuria
CPT/HCPCS: 99203

== ENCOUNTER → 2024-06-12 13:39 | Outpatient (BNVA) | payer MEDICARE, MEDICAID, SELFPAY | PROVIDERS: PCP Internal Medicine; Visit Provider Urology | DX: R31.29 Other microscopic hematuria (principal) | CPT/HCPCS: 51798; 81003; 99202 ==

== ENCOUNTER 2024-08-08 10:43 | Outpatient (REF) | payer MEDICARE, MEDICAID, SELFPAY ==
--- OUTSIDE RECORDS SUMMARY | 2024-08-08 15:13 | XMS_ITS | Clinical Summary ---
Author Organization [facility] Address [address] [place] [address] Phone Care Team Providers Care Make Up Editor Name Role Phone Unavailable Primary Care Provider Unavailabl e Encounters Date Type Department Care Team Description 07/22/2024 7:28 AM EDT - 07/22/2024 11:59 PM EDT Hospital Encounter [facility] PET Scan [address] [place] [address] Metastatic malignant neoplasm to breast [...] AM EDT Metastatic malignant neoplasm to breast (CMS/[facility] V24, CMS/[facility] V28) from Last 3 Months Results * [...] Signed Date: 07/23/2024 14:37 ET Workstation ID: [id number] Transcribed By: Self Edit Transcribed Date: 07/23/2024 [...] Signed Date: 07/23/2024 14:37 ET Workstation ID: [id number] Transcribed By: Self Edit Transcribed Date: 07/23/2024 14:16 ET Alyssa José MD IMG NM PROCEDURES Final Result from Last 3 Months Insurance [employer] MEDICARE ADVANTAGE
== END 2024-08-08 10:44 | disposition home or self-care (01) ==
LOC: HO.LAB 10:43
PROVIDERS: PCP Internal Medicine; Visit Provider Urology
DX: N39.0 Urinary tract infection, site not specified (principal); N36.2 Urethral caruncle; R30.0 Dysuria; R31.29 Other microscopic hematuria; Z79.82 Long term (current) use of aspirin
CPT/HCPCS: 52000; 81003; 87086; 99212

== ENCOUNTER 2024-08-08 10:43 | Outpatient (AMB) | payer MEDICARE, MEDICAID, SELFPAY ==
--- OUTSIDE RECORDS SUMMARY | 2024-08-08 11:16 | XMS_ITS | Clinical Summary ---
Author Organization [facility] Address [address] [place] [address] Phone Care Team Providers Care All Source Intelligence Analyst Name Role Phone Unavailable Primary Care Provider Unavailabl e Encounters Date Type Department Care Team Description 07/22/2024 7:28 AM EDT - 07/22/2024 11:59 PM EDT Hospital Encounter [facility] PET Scan [address] [place] [address] Metastatic malignant neoplasm to breast (CMS/HCC V24, CMS/HCC V28) Discharge Disposition: Home or Self Care from Last 3 Months Social History Tobacco Use Types Packs/Day Years Used Date Smoking Tobacco: Never Assessed Comments Unknown Sex and Gender Information Value Date Recorded Sex Assigned at Not on file Legal Sex Female 10:09 AM EDT Gender Identity Not on file Sexual Orientation Not on file Plan of Treatment Health Maintenance Due Date Last Done Comments Breast Cancer Screening 1955 COVID-19 Vaccine (#1) 02/14/1961 DTaP,Tdap,and Td Vaccines (1 - Tdap) 02/14/1975 Pneumococcal Vaccine: 50+ Ye ars (1 of 2 - PCV) 02/14/1975 Zoster Vaccines (1 of 2) 02/14/1975 Colorectal Cancer Screening: Colonoscopy 07/21/2024 Depression Screening 07/21/2024 Falls Risk Assessment 07/21/2024 Hepatitis C Screening 07/21/2024 Medicare Annual Wellness Visit 07/21/2024 Osteoporosis Screening (Bone Density Screening) 07/21/2024 Social Influencers of Health Screening 07/21/2024 Influenza Vaccine (Season Ended) 2024 RSV Immunization Adult Patie nts (1 - 1-dose 75+ series) 02/14/2031 HIB Vaccines Aged Out No longer eligi ble based on patient's age to complete this topic HPV Vaccines Aged Out No longer eligi ble based on patient's age to complete this topic Hepatitis A Vaccines Aged Out No long er eligible based on patient's age to complete this topic Hepatitis B Vaccines Aged Out No long er eligible based on patient's age to complete this topic IPV Vaccines Aged Out No longer eligi ble based on patient's age to complete this topic MMR Vaccines Aged Out No longer eligi ble based on patient's age to complete this topic Meningococcal ACWY Vaccine Aged Out N o longer eligible based on patient's age to complete this topic Meningococcal B Vaccine Aged Out No l onger eligible based on patient's age to complete this topic RSV Immunization Patients Un susanne 20 months Aged Out No longer eligible b ased on patient's age to complete this topic Varicella Vaccines Aged Out No longer eligible based on patient's age to complete this topic Procedures Procedure Name Priority Date/Time Associated Diagnosis Comments PET CT SKULL TO MID THIGH SUBSEQUENT Routine 07/22/2024 9:55 AM EDT Metastatic malignant neoplasm to breast (CMS/[facility] V24, CMS/[facility] V28) from Last 3 Months Results * PET CT Skull to Mid Thigh Subsequent (07/22/2024 9:55 AM EDT) Anatomical Region Laterality Modality Body Radiographic Ene ging 07/23/2024 2:16 PM EDT Impressions 07/23/2024 2:37 PM EDT Multifocal right-sided pleural-based metabolic activity is overall fairly similar to the prior outside PET/CT study from December 2020. Again this may represent activity from prior pleurodesis however residual malignancy cannot be excluded. Clinical correlation recommended. No evidence of distant metastases. -------- FINAL REPORT -------- Dictated By: Alex Karimi Dictated Date: 07/23/2024 14:16 ET Assigned Physician: Alex Karimi Reviewed and Electronically Signed By: Alex Karimi Signed Date: 07/23/2024 14:37 ET Workstation ID: [id number] Transcribed By: Self Edit Transcribed Date: 07/23/2024 14:16 ET Narrative 07/23/2024 2:37 PM EDT INDICATION: Breast carcinoma, subsequent treatment strategy Prior relevant studies: Prior outside PET/CT most recent from January 18, 2021 as well as May 18, 2020. Outside chest CT from April 16, 2023 reviewed. Please note images difficult to directly compare to the prior study since the provided fused images are not window level appropriately. Also the raw data cannot be manipulated to obtain optimal window leveling. Radiopharmaceutical: 12.0 mCi of F-18 FDG IV. Blood glucose: 86 mg/dl. PROCEDURE: Routine body FDG PET-CT imaging was performed from the skull base to the proximal/mid thighs and reconstructed in axial, coronal, and sagittal planes at the computer workstation with fused data from both the PET imaging study and attenuation correction CT. The CT portion of the examination was done strictly for attenuation correction and is not a true diagnostic CT examination. CTDI: 5.88 mGy FINDINGS: HEAD AND NECK: No abnormal FDG activity. THORAX: Persistent FDG activity within the medial right lung apex SUV max of 8.3 is mildly improved in intensity compared to the prior outside study from December 2020 with reported SUV max of 11.8. Associated calcified pleural thickening again noted. Mild pleural FDG activity extends anteriorly along the anterior junction line with SUV max of 3.6, within the right lung base with SUV max of 4.7 as well as inferomedially along the right middle lobe along with SUV max of 3.9. These values are fairly similar to mildly increased when compared to the pathology report on the prior for the January 13 PET/CT study. Also some of these regions demonstrate pleural calcification also which is similar to prior outside chest CT from April 16, 2023. ABDOMEN/PELVIS: No abnormal FDG activity. MUSCULOSKELETAL: Mild focal activity noted along the right lateral serratus anterior muscle SUV max of 3.1. Curvilinear density noted lateral to this focus extending within the soft tissues toward the skin surface with mild FDG activity along the thickening more superficial portion with SUV max of 1.3. These findings are nonspecific and may be post procedural in origin. No abnormal osseous FDG activity. Procedure Note Alex Karimi MD - 07/23/2024 INDICATION: Breast carcinoma, subsequent treatment strategy Prior relevant studies: Prior outside PET/CT most recent from December as well as May 18, 2020. Outside chest CT from April 164reviewed. Please note images difficult to directly compare to the prior study sincethe provided fused images are not window level appropriately. Also the rawdata cannot be manipulated to obtain optimal window leveling. Radiopharmaceutical: 12.0 mCi of F-18 FDG IV. Blood glucose: 86 mg/dl. PROCEDURE: Routine body FDG PET-CT imaging was performed from the skullbase to the proximal/mid thighs and reconstructed in axial, coronal, andsagittal planes at the computer workstation with fused data from both thePET imaging study and attenuation correction CT. The CT portion of theexamination was done strictly for attenuation correction and is not a truediagnostic CT examination. CTDI: 5.88 mGy FINDINGS: HEAD AND NECK: No abnormal FDG activity. THORAX: Persistent FDG activity within the medial right lung apex SUV maxof 8.3 is mildly improved in intensity compared to the prior outside studyfrom December 2020 with reported SUV max of 11.8. Associated calcifiedpleural thickening again noted. Mild pleural FDG activity extends anteriorly along the anterior junctionline with SUV max of 3.6, within the right lung base with SUV max of 4.7as well as inferomedially along the right middle lobe along with SUV maxof 3.9. These values are fairly similar to mildly increased when comparedto the pathology report on the prior for the January 13 PET/CT study. Alsosome of these regions demonstrate pleural calcification also which issimilar to prior outside chest CT from April 16, 2023. ABDOMEN/PELVIS: No abnormal FDG activity. MUSCULOSKELETAL: Mild focal activity noted along the right lateralserratus anterior muscle SUV max of 3.1. Curvilinear density noted lateralto this focus extending within the soft tissues toward the skin surfacewith mild FDG activity along the thickening more superficial portion withSUV max of 1.3. These findings are nonspecific and may be post proceduralin origin. No abnormal osseous FDG activity. IMPRESSION: Multifocal right-sided pleural-based metabolic activity is overall fairlysimilar to the prior outside PET/CT study from December 2020. Again thismay represent activity from prior pleurodesis however residual malignancycannot be excluded. Clinical correlation recommended. No evidence of distant metastases. -------- FINAL REPORT -------- Dictated By: Alex Karimi Dictated Date: 07/23/2024 14:16 ET Assigned Physician: Alex Karimi Reviewed and Electronically Signed By: Sachi, Parshant Signed Date: 07/23/2024 14:37 ET Workstation ID: [id number] Transcribed By: Self Edit Transcribed Date: 07/23/2024 14:16 ET Alyssa José MD IMG NM PROCEDURES Final Result from Last 3 Months Insurance [employer] MED[employer]ARE [employer]VANTAGE
--- NOTE | 2024-08-08 11:24 | A.OFFVIS_ITS ---
Intake Visit Reasons: cysto Intake Note: Patient is present for Cystoscopy Urology Medication:NONE Antibiotic Allergy:SULFA,BACTRIM Blood Thinner:ASPIRIN Lot:[id number] Exp:08/01/26 Millwork Estimator Required: No Allergies Sulfa (Sulfonamide Antibiotics) Allergy (Severe, Verified 08/08/24 11:48) lip swelling, facial swelling sulfamethoxazole [From BACTRIM] Allergy (Severe, Verified 08/08/24 11:48) FACE/LIP SWELLING adhesive tape [ADHESIVE TAPE] Allergy (Intermediate, Verified 08/08/24 11:48) BLISTERS,SKIN SLOUGHING amlodipine Adverse Reaction (Intermediate, Verified 08/08/24 11:48) Palpitations HPI Comments Details: Flaca is a pleasant female. She is a patient of Dr. Lyn. She is seen for the following urologic conditions - microscopic hematuria On examination has caruncle Also with grade 2 rectocele Suggest topical Estrace Does have prior history of metastatic breast cancer This is not a contraindication for topical Estrace therapy - there are at least 3 large scale randomized control trials showing quality of life benefit with no impact on systemic estradiol levels Six-month follow-up Microscopic hematuria Previous evaluation in 2017 normal Recent ultrasound with normal kidneys and bladder emptying UA 200+ Cytology no abnormality detected Does have concerns regarding rectocele and cystocele Reports occasional locking of urine 2 full-term pregnancies with 12 hour labors [facility] Medical History Herpes simplex type 2 infection Pleural effusion, malignant (~2019) Chest tube in place Osteopenia History of right breast cancer (~2005) Primary thyroid cancer (~2005) Metastatic breast cancer Arthritis Back pain Hx of radiation therapy History of chemotherapy GERD (gastroesophageal reflux disease) History of anxiety Depression Lab test negative for COVID-19 virus History of palpitations ISH on CPAP Vaginal lesion Shortness of breath Post-surgical hypothyroidism (~2005) Atelectasis of right lung Surgical History Hx of cataract surgery Status post fine needle aspiration Hx of chest tube placement (~2020) History of total right knee replacement (TKR) (~2016) History of colonoscopy (~2018) History of endoscopy (~2018) History of partial mastectomy (~2005) History of thyroidectomy (~2005) Family History Father Alzheimer's disease HTN (hypertension) Mother CHF (congestive heart failure) Renal failure PVD (peripheral vascular disease) HTN (hypertension) Macular degeneration Maternal Grandfather CVD (cardiovascular disease) Myocardial infarction Maternal Grandmother Stomach cancer CVD (cardiovascular disease) Paternal Grandfather Black lung disease Paternal Grandmother No problems noted. Brother Substance use disorder Sister No problems noted. Son No problems noted. Son No problems noted. Family/Other History of breast cancer Maternal Uncle Colon cancer Social History Household Members: Spouse Housing: House Are you a primary pet care associate to a significant other at home: No Do you presently have visiting nurse or other home services: No Alcohol intake: former Comment: no skin breakdown noted Patient Tobacco Use Status: Former Tobacco user Tobacco use type: Cigarette Cigarette Packs Per Day: 1 Years Smoked: 10 yrs e-Cigarette/Vaping Use: Never Used service: No Current occupational status: retired Sexual orientation: Straight/Heterosexual Gender identity: Female Cognitive needs: No Hearing needs: No Vision needs: Yes Review of Systems Const Denies chills and Denies fever(s) Card Reports no additional complaints and Denies syncope Resp Denies cough GI Denies abdominal pain and Denies heartburn Reports as per HPI and Denies change in libido Neuro Denies syncope Psych Denies change in libido Endo Denies change in libido Physical Exam Const General: cooperative, healthy appearing, comfortable and no acute distress Orientation/consciousness: patient oriented x3 HEENT Face and sinus: Yes normal facial exam Mouth: moist mucous membranes Neck Neck: Yes normal visual inspection, Yes full ROM and Yes trachea midline Chest Chest palpation & inspection: normal inspection of the chest Resp Effort & Inspection: normal respiratory effort, able to speak in complete sentences and no respiratory distress GI Inspection: Yes normal to inspection Back/Spine/Pelvis Cervical Spine: normal cervical lordosis Thoracic/Lumbar Spine: thoracic and lumbar spine normal to inspection Skin General skin exam: no rashes or lesions noted Neuro General: patient oriented x3, gait normal, tone normal and moves all extremities Extrem General: Yes normal to inspection and Yes capillary refill normal Office Procedures Cystoscopy Consent Discussed risk and benefit or proposed procedure with the patient. Information consent for procedure given to the patient. Discussed technical aspects, risks, benefits and alternatives in full. Addressed all of the patient's questions and concerns regarding the procedure. The patient demonstrated knowledge and understanding. They wish to proceed with this procedure. Preparation The patient was prepped in the usual manner. A liturgical music director was present and in the room. Genitalia was prepped with betadine solution in a sterile manner. Lidocaine Jelly 2% was placed into the urethra and 16Fr flexible Olympus cystoscope was inserted into the meatus after adequate lubrication. Procedure Meatus caruncle Urethra normal Bladder examination with retroflexion of cystoscope Bladder Orifices normal shape and position Trigone mild metaplasia Bladder Capacity Normal Trabeculations Grade 0 Cellule Formation None Diverticulum Formation None Mucosal Erythema None Bladder Tumor None 57036-[id number] DISPOSABLE SCOPE URO-G FLEXIBLE SCOPE Procedure code (CPT) selection complete Office Meds lidocaine HCl 2 % mucosal jelly in applicator Performing Provider: Martinez Tyson MD Performing Location: [facility] [place] [facility] Administered by: Neville Jones LPN on 08/08/24 11:44 Dose Route Admin Location Dispensed Lot Number Expiration Date NDC Engraver Seals 10 mL intra-urethral 10 mL nitrofurantoin monohydrate/macrocrystals 100 mg capsule Performing Provider: Martinez Tyson MD Performing Location: [facility] [place] [facility] Administered by: Neville Jones LPN on 08/08/24 11:44 Dose Route Admin Location Dispensed Lot Number Expiration Date NDC Engraver Seals 100 mg PO 1 cap Assessment & Plan Assessment & Plan (1) Urethral caruncle: Code(s): 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 Category: Medical (2) Microscopic hematuria: Comment: chronic, negative cystoscopy by urogynecologist at [facility] years ago Code(s): R31.29 - Other microscopic hematuria Category: Medical Plan Initiate topical Estrace therapy for caruncle Orders: Orders AMB Cystoscopy Today R30.0 - Dysuria, R31.29 - Other microscopic hematuria Medications: New estradiol 0.01%(0.1mg/gram) pea-sized to urethra 3 times a week 30 days 42.5 grams 2RF 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, N39.0 - Urinary tract infection, site not specified, N95.2 - Postmenopausal atrophic vaginitis Patient Instructions: This note is constructed using voice recognition software. While every effort has been made to ensure accuracy transcription typist errors may have been included. Imaging studies, laboratory and physical exam results were discussed and reviewed in detail. No major barriers to patient understanding were identified. An opportunity to ask questions regarding the treatment plan was provided. All questions were answered. The patient expressed understanding and agreement with the above treatment plan. The patient is aware they should contact our office by phone for worsening of their current condition or the appearance of new urologic symptoms. Compliance is encouraged with any medications and followup testing that is ordered. It is a privilege to participate in the urologic care of your patient. If you have any questions or concerns regarding treatment for the above conditions, or other urologic issues, please do not hesitate to contact me. The office telephone contact is [phone]. Sincerely, Dr Martinez Tyson MD, [facility] - Urology Compassionate Specialist Care for the Genitourinary System Coding Level of Care Code Est Pt Level 4 (25143) Complex EM visit Add On G2211 Diagnoses Urethral caruncle N36.2 Microscopic hematuria R31.29 CPT Codes Cystoscopy - CPT: 60027-[id number] ([id number])
== END 2024-08-08 13:13 | disposition home or self-care (01) ==
LOC: HO.HUSH 10:44
PROVIDERS: PCP Internal Medicine; Visit Provider Urology
DX: R30.0 Dysuria (principal); N36.2 Urethral caruncle; R31.29 Other microscopic hematuria
CPT/HCPCS: 52000; 99214

== ENCOUNTER 2024-09-25 11:22 | Outpatient (REF) | payer MEDICARE, OTHER, SELFPAY ==
--- OUTSIDE RECORDS SUMMARY | 2024-09-25 12:09 | XMS_ITS | Clinical Summary ---
Author Organization [facility] Address [address] [place] [address] Phone Care Team Providers Care Chief Of Anesthesiology Name Role Phone Unavailable Primary Care Provider Unavailabl e Encounters Date Type Department Care Team Description 07/22/2024 7:28 AM EDT - 07/22/2024 11:59 PM EDT Hospital Encounter [facility] PET Scan [address] [place] [address] Metastatic malignant neoplasm to breast [...] Signed Date: 07/23/2024 14:37 ET Workstation ID: [id number] Transcribed By: Self Edit Transcribed Date: 07/23/2024 [...] Signed Date: 07/23/2024 14:37 ET Workstation ID: [id number] Transcribed By: Self Edit Transcribed Date: 07/23/2024 14:16 ET Alyssa José MD IMG NM PROCEDURES Final Result from Last 3 Months Insurance [employer] MEDICARE ADVANTAGE
== END 2024-09-25 11:23 | disposition home or self-care (01) ==
LOC: HO.MAMMO 11:22
PROVIDERS: PCP Internal Medicine; Visit Provider Internal Medicine
DX: Z12.31 Encounter for screening mammogram for malignant neoplasm of breast (principal)
CPT/HCPCS: 77063; 77067

== ENCOUNTER → 2024-09-25 11:30 | Outpatient (BNV) | payer MEDICARE, MEDICAID, SELFPAY | PROVIDERS: PCP Internal Medicine; Visit Provider Internal Medicine | DX: Z12.31 Encounter for screening mammogram for malignant neoplasm of breast (principal) | CPT/HCPCS: 77063; 77067 ==

== ENCOUNTER 2024-10-01 11:24 | Outpatient (AMB) | payer MEDICARE, MEDICAID, SELFPAY ==
--- NOTE | 2024-10-01 11:43 | MHC.OFFVIS ---
Vital Signs 10/01/24 11:44 Height 5 ft 3 in Weight 143 lb 4.807 oz BMI 25.4 BP 142/95 H Blood Pressure Location Lt radial Position Sitting Pulse 66 Intake Visit Reasons: constipation/colo rescreen ls 2021 Intake Note: Flaca presents in the office as a rescreen. CC: She states that she is having concerns regarding her stomach. She has a lot of cramping, constipation, diarrhea, hot flashes. She states while she has a BM she also has vomiting that has been on and off for a while about a year. Last summer she got ill and it has been like that ever sine. Final Touch Up Painter Required: No Allergies Sulfa (Sulfonamide Antibiotics) Allergy (Severe, Verified 10/01/24 11:45) lip swelling, facial swelling sulfamethoxazole (From BACTRIM) Allergy (Severe, Verified 10/01/24 11:45) FACE/LIP SWELLING adhesive tape (ADHESIVE TAPE) Allergy (Intermediate, Verified 10/01/24 11:45) BLISTERS,SKIN SLOUGHING amlodipine Adverse Reaction (Intermediate, Verified 10/01/24 11:45) Palpitations HPI HPI constipation/colo rescreen ls 2021: Details: LAST VISIT 09/22/2021 GERD (gastroesophageal reflux disease) Discussed with patient avoiding dietary triggers and late night snacking. Patient reports that her acid reflux is under control for the most part. Chronic idiopathic constipation Patient reports to be constipated, however occasional loose stool after certain meals. I will start her on Dulcolax. Patient was instructed to take Citrucel as well. Patient was encouraged to increase fluids, increase activity. Eat more fruits and vegetables. IBS (irritable bowel syndrome) Postprandial abdominal bloating. Discussed with patient FODMAP diet. List of food recommended as well as food to avoid given to patient. Patient can try elimination diet. IBS with predominant we constipation, however patient does have occasional loose stools. I will check pancreatic elastase to rule out pancreatic insufficiency. Will check transglutaminase. I will see patient in 3 months, sooner on as needed basis. Patient is agreeable to this plan and verbalizes understanding of instructions. She was given the opportunity to ask questions all questions answered. ? Thank you for allowing me to participate in her care Plan Orders Orders Pancreatic Elastase-1 09/28/21 R10.9 Transglutaminase IgA 09/23/21 R10.9 Transglutaminase Ab IgG 09/23/21 R10.9 Medications New bisacodyl 10 mg (2 x 5 mg) PO BEDTIME 180 tabs 1RF K59.00 hydrocortisone 2.5% (Anusol-HC) 1 appl MD QID PRN 30 grams 2RF hemorrhoids K64.9 Discontinued sennosides Discontinued Reason: Doctor's Order 17.2 mg (2 x 8.6 mg) PO BEDTIME 180 tabs 4RF Constipation TODAY'S VISIT Here today to discuss going for colonoscopy. Last patient was in August of 2021. Patient was supposed to follow-up in the office, however she never did. Patient had colonoscopy in November of 2020 and recommendation was to repeat in 5 years. Patient is not due to go for colonoscopy yet, however she has been having changes in her bowel pattern. Patient reports decreased abdominal pain. Reports getting ill last summer been placed in not feeling well. Postprandial abdominal bloating, postprandial diarrhea. Patient reports that many times when she is going to have a bowel movement she will feel nauseous and vomiting. Patient reports that this by her having postprandial loose stools she feels like she is constipated and backed up. Occasionally taking Dulcolax. Denies melena, hematochezia, unintentional weight loss or ribbon like stools. Acid reflux control for the most part with diet. Denies dyspepsia, dysphagia or odynophagia. Patient denies any cardiac or respiratory symptoms. Patient is on low-dose aspirin. [facility] Medical History Herpes simplex type 2 infection Pleural effusion, malignant (~2019) Chest tube in place Osteopenia History of right breast cancer (~2005) Primary thyroid cancer (~2005) Metastatic breast cancer Arthritis Back pain Hx of radiation therapy History of chemotherapy GERD (gastroesophageal reflux disease) History of anxiety Depression Lab test negative for COVID-19 virus History of palpitations ISH on CPAP Vaginal lesion Shortness of breath Post-surgical hypothyroidism (~2005) Atelectasis of right lung Surgical History Hx of cataract surgery Status post fine needle aspiration Hx of chest tube placement (~2020) History of total right knee replacement (TKR) (~2016) History of colonoscopy (~2018) History of endoscopy (~2018) History of partial mastectomy (~2005) History of thyroidectomy (~2005) Family History Father Alzheimer's disease HTN (hypertension) Mother CHF (congestive heart failure) Renal failure PVD (peripheral vascular disease) HTN (hypertension) Macular degeneration Maternal Grandfather CVD (cardiovascular disease) Myocardial infarction Maternal Grandmother Stomach cancer CVD (cardiovascular disease) Paternal Grandfather Black lung disease Paternal Grandmother No problems noted. Brother Substance use disorder Sister No problems noted. Son No problems noted. Son No problems noted. Family/Other History of breast cancer Maternal Uncle Colon cancer Social History Household Members: Spouse Housing: House Are you a primary resident care technician to a significant other at home: No Do you presently have visiting nurse or other home services: No Alcohol intake: former Comment: no skin breakdown noted Patient Tobacco Use Status: Former Tobacco user Tobacco use type: Cigarette Cigarette Packs Per Day: 1 Years Smoked: 10 yrs e-Cigarette/Vaping Use: Never Used service: No Current occupational status: retired Sexual orientation: Straight/Heterosexual Gender identity: Female Cognitive needs: No Hearing needs: No Vision needs: Yes Review of Systems Const Denies weight gain and Denies weight loss ENT Reports no additional complaints, Denies dysphagia and Denies odynophagia Card Reports no additional complaints Resp Reports no additional complaints GI Denies abdominal pain, Denies belching, Denies melena, Denies bloating, Denies change in bowel habits, Reports constipation, Denies dysphagia, Denies excessive flatus, Denies dyspepsia, Denies heartburn, Denies diarrhea, Reports loose stools, Reports nausea, Denies odynophagia and Denies vomiting Reports no additional complaints Musc Reports no additional complaints Neuro Reports no additional complaints Psych Reports no additional complaints Endo Reports no additional complaints Physical Exam Vital Signs: Last Vital Signs Pulse 66 10/01/24 11:44 BP 142/95 H 10/01/24 11:44 BMI result Body Mass Index 25.4 Const General: healthy appearing, no acute distress and well developed Nutritional Appearance: well nourished Orientation/consciousness: patient oriented x3 Resp Effort & Inspection: normal respiratory effort, able to speak in complete sentences, no tracheal deviation and symmetric chest movement Auscultation: clear to auscultation bilaterally Cardio Rate: regular rate GI Inspection: Yes normal to inspection and No distended Palpation (GI): Soft to palpation, not firm, nontender and No hepatosplenomegaly present Auscultation: normal bowel sounds General: Yes no CVA tenderness Back/Spine/Pelvis Back: no CVA tenderness Skin General skin exam: elasticity normal, turgor normal and dry skin Neuro General: patient oriented x3 Psych Appearance: grossly normal Mental Status: mental status grossly normal Results Reviewed Results Reviewed: Laboratory Tests 09/23/21 09/28/21 13:52 08:45 Stool Pancreat Elastase >500 Tiss Transglutamin IgG <1.0 Tiss Transglutamin IgA <1.0 Assessment & Plan Assessment & Plan (1) Constipation: Code(s): K59.00 - Constipation, unspecified Category: Medical Qualifiers: Constipation type: slow transit constipation Qualified Code(s): K59.01 - Slow transit constipation (2) Screen for colon cancer: Code(s): Z12.11 - Encounter for screening for malignant neoplasm of colon (3) Postprandial abdominal bloating: Code(s): R14.0 - Abdominal distension (gaseous) (4) Irritable bowel syndrome: Code(s): K58.9 - Irritable bowel syndrome, unspecified Qualifiers: Irritable bowel syndrome type: with both diarrhea and constipation Qualified Code(s): K58.2 - Mixed irritable bowel syndrome (5) Gastroesophageal reflux disease: Code(s): K21.9 - Gastro-esophageal reflux disease without esophagitis Qualifiers: Esophagitis presence: esophagitis presence not specified Qualified Code(s): K21.9 - Gastro-esophageal reflux disease without esophagitis (6) Postprandial diarrhea: Code(s): K52.9 - Noninfective gastroenteritis and colitis, unspecified (7) Nausea & vomiting: Code(s): R11.2 - Nausea with vomiting, unspecified Qualifiers: Vomiting type: unspecified Qualified Code(s): R11.2 - Nausea with vomiting, unspecified Plan Discussed with patient avoiding dietary triggers. Low FODMAP diet recommended. Continue taking Dulcolax to help her move her bowels. Increase fluid intake and activity to promote better bowel motility. Patient was also encouraged to take fiber with pre and probiotics. Patient will be sent for colonoscopy as her symptoms of bowel irregularity increased. What to expect before during and after procedure discussed patient. Stressed the importance of good bowel prep and clear liquid diet day before procedure. Patient denies any cardiac or respiratory symptoms. Patient will be seen after the procedure, sooner on as needed basis. Patient was encouraged to call us if her GI symptoms will get worse. She is agreeable to this plan and verbalizes understanding of instructions. She was given the opportunity to ask questions and all questions answered. Thank you for allowing me to participate in her care Medications: New polyethylene glycol 3350 (Miralax) As directed by gastroenterology department at [facility] 238 grams PO ONCE 238 grams 0RF Z12.11 - Encounter for screening for malignant neoplasm of colon Coding Level of Care Code New Pt Level 4 (29630) Diagnoses Slow transit constipation K59.01 Constipation type: slow transit constipation Screen for colon cancer Z12.11 Postprandial abdominal bloating R14.0 Irritable bowel syndrome with both constipation and diarrhea K58.2 Irritable bowel syndrome type: with both diarrhea and constipation Gastroesophageal reflux disease, unspecified whether esophagitis present K21.9 Esophagitis presence: esophagitis presence not specified Postprandial diarrhea K52.9 Nausea and vomiting, unspecified vomiting type R11.2 Vomiting type: unspecified Time Spent (min) 50 Comment 35 minutes spent with patient and additional 15 minutes spent reviewing her records
[2024-10-01 11:44] VITALS: BP 142/95; PULSE 66; BMI 25.4
--- OUTSIDE RECORDS SUMMARY | 2024-10-01 12:35 | XMS_ITS | Clinical Summary ---
Author Organization [facility] Address [address] [place] [address] Phone Care Team Providers Care Media Librarian Name Role Phone Unavailable Primary Care Provider Unavailabl e Encounters Date Type Department Care Team Description 07/22/2024 7:28 AM EDT - 07/22/2024 11:59 PM EDT Hospital Encounter [facility] PET Scan [address] [place] [address] Metastatic malignant neoplasm to breast [...] Metastatic malignant neoplasm to breast (CMS/[facility] V24, CMS/[facility] V28) from Last 3 Months Results [...] Signed Date: 07/23/2024 14:37 ET Workstation ID: [id number] Transcribed By: Self Edit Transcribed Date: 07/23/2024 [...] Signed Date: 07/23/2024 14:37 ET Workstation ID: [id number] Transcribed By: Self Edit Transcribed Date: 07/23/2024 14:16 ET Alyssa José MD IMG NM PROCEDURES Final Result from Last 3 Months Insurance [employer] MEDICARE ADVANTAGE
== END 2024-10-01 13:20 | disposition home or self-care (01) ==
LOC: HO.HGI 11:25
PROVIDERS: PCP Internal Medicine; Visit Provider Nurse Practitioner Family
DX: K59.01 Slow transit constipation (principal); R14.0 Abdominal distension (gaseous); K58.2 Mixed irritable bowel syndrome; K21.9 Gastro-esophageal reflux disease without esophagitis; K52.9 Noninfective gastroenteritis and colitis, unspecified; R11.2 Nausea with vomiting, unspecified
CPT/HCPCS: 99204

== ENCOUNTER → 2024-10-01 11:24 | Outpatient (BNVA) | payer MEDICARE, MEDICAID, SELFPAY | PROVIDERS: PCP Internal Medicine; Visit Provider Nurse Practitioner Family | DX: Z12.11 Encounter for screening for malignant neoplasm of colon (principal); K59.01 Slow transit constipation; K58.2 Mixed irritable bowel syndrome; K21.9 Gastro-esophageal reflux disease without esophagitis; R11.2 Nausea with vomiting, unspecified | CPT/HCPCS: 99202 ==

== ENCOUNTER 2024-11-05 12:51 | Outpatient (AMB) | payer MEDICARE, MEDICAID, SELFPAY ==
--- NOTE | 2024-11-05 12:56 | MHC.OFFVIS ---
Vital Signs 11/05/24 13:03 Height 5 ft 3 in Weight 148 lb BMI 26.2 BP 146/88 H Intake Visit Reasons: YEAST PUMPER annual exam Junior Loan Processor: Junior Loan Processor Present (Wendi) Accompanied by: Self / Same As Patient Allergies Sulfa (Sulfonamide Antibiotics) Allergy (Severe, Verified 11/05/24 13:00) lip swelling, facial swelling sulfamethoxazole (From BACTRIM) Allergy (Severe, Verified 11/05/24 13:00) FACE/LIP SWELLING adhesive tape (ADHESIVE TAPE) Allergy (Intermediate, Verified 11/05/24 13:00) BLISTERS,SKIN SLOUGHING amlodipine Adverse Reaction (Intermediate, Verified 11/05/24 13:00) Palpitations Is last menstrual period known: No Post menopausal: Yes Patient : No HPI Comments Details: Patient is a postmenopausal woman 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 Veterinary Surgery Technologist concerns: Increased vaginal fluids without irritations, feels wet all the time. Using small amount of Estrace for her urethral caruncle for the last 2 months and reports she felt better within a few days of use. Has other GI symptoms with bloating gas and stool changes has been seen by her GI provider. Followed by Urology for hematuria. Currently not sexually active. Attempting to eat a healthy diet with calcium foods and vitamin D supplement, and stays active with exercise. Last pap smear; 2020, negative. Last mammogram; 2024. Colonoscopy is up-to-date. [facility] Medical History Restless leg syndrome Abnormal cystography Essential tremor Herpes simplex type 2 infection Pleural effusion, malignant (~2019) Chest tube in place Osteopenia History of right breast cancer (~2005) Primary thyroid cancer (~2005) Metastatic breast cancer Arthritis Back pain Hx of radiation therapy History of chemotherapy GERD (gastroesophageal reflux disease) History of anxiety Depression Lab test negative for COVID-19 virus History of palpitations ISH on CPAP Vaginal lesion Shortness of breath Post-surgical hypothyroidism (~2005) Atelectasis of right lung Surgical History Hx of cataract surgery Status post fine needle aspiration Hx of chest tube placement (~2020) History of total right knee replacement (TKR) (~2016) History of colonoscopy (~2018) History of endoscopy (~2018) History of partial mastectomy (~2005) History of thyroidectomy (~2005) Family History Father Alzheimer's disease HTN (hypertension) Mother CHF (congestive heart failure) Renal failure PVD (peripheral vascular disease) HTN (hypertension) Macular degeneration Maternal Grandfather CVD (cardiovascular disease) Myocardial infarction Maternal Grandmother Stomach cancer CVD (cardiovascular disease) Paternal Grandfather Black lung disease Paternal Grandmother No problems noted. Brother Substance use disorder Sister No problems noted. Son No problems noted. Son No problems noted. Family/Other History of breast cancer Maternal Uncle Colon cancer Social History Household Members: Spouse Housing: House Are you a primary home day care provider to a significant other at home: No Do you presently have visiting nurse or other home services: No Alcohol intake: former Comment: no skin breakdown noted Patient Tobacco Use Status: Former Tobacco user Tobacco use type: Cigarette Cigarette Packs Per Day: 1 Years Smoked: 10 yrs e-Cigarette/Vaping Use: Never Used service: No Current occupational status: retired Sexual orientation: Straight/Heterosexual Gender identity: Female Cognitive needs: No Hearing needs: No Vision needs: Yes Female Reproductive History Menstrual Total pregnancies: 3 Full term: 2 Date of last pap smear: 08/11/20 (negative pap smear, negative hpv ) Date of Mammogram: 09/25/24 (bi rad 2) Review of Systems Const All systems reviewed & are unremarkable except as noted in HPI and below Reports as per HPI Eyes Reports no additional complaints ENT Reports no additional complaints Card Reports no additional complaints Resp Reports no additional complaints GI Reports as per HPI and Reports no additional complaints Reports as per HPI Musc Reports no additional complaints Skin/Breast Reports as per HPI Neuro Reports no additional complaints Psych Reports no additional complaints Endo Reports no additional complaints Luis Manuel/Lymph Reports no additional complaints Aller/Immun Reports no additional complaints Physical Exam Vital Signs: Last Vital Signs BP 146/88 H 11/05/24 13:03 BMI result Body Mass Index 26.2 Const General: cooperative, healthy appearing, no acute distress, well developed and alert Orientation/consciousness: patient oriented x3 HEENT Head: Yes normal to inspection Eyes General: appearance normal, both eyes and all related structures Neck Neck: Yes normal visual inspection Thyroid: Thyroid normal Chest Other: Right breast post surgical scarring Chest palpation & inspection: normal inspection of the chest and other (no puckering, dimpling, peau de orange, retraction, discharge, masses) Breast/axilla inspection: normal inspection of the breasts Breast/axilla palpation: normal palpation of the breasts Resp Effort & Inspection: normal respiratory effort GI Inspection: Yes normal to inspection Palpation (GI): Soft to palpation Rectal Exam - Female: deferred General: Yes bladder normal to palpation External Female Exam: normal external appearance, normal appearance of the urethra and other (Urethral caruncle ) Speculum Exam - Vagina: normal appearance of the vagina, normal palpation, normal vaginal discharge and vagina atrophic Speculum Exam - Cervix: normal appearance of the cervix and normal palpation Bimanual exam- vagina & uterus: normal bimanual exam, normal palpation, uterine size normal, bladder normal to palpation, normal palpation and non-tender Bimanual Exam- Adnexa, other: no masses Skin General skin exam: no rashes or lesions noted Rashes: no rashes Neuro General: patient oriented x3 Cognition (Neuro): normal cognition Extrem General: Yes normal to inspection Psych Attitude: cooperative Thought process: Normal thought process present Assessment & Plan Assessment & Plan (1) Vaginal discharge: Code(s): N89.8 - Other specified noninflammatory disorders of vagina (2) Encounter for well woman exam with routine gynecological exam: Code(s): Z01.419 - Encounter for gynecological examination (general) (routine) without abnormal findings Category: Medical Plan Discussed: Current recommendations for pap smears per ASCCP guidelines. BV panel obtained, await results for final plan of care. Breast awareness, periodic self breast exams and yearly mammogram. Follow up with the Oncology. Maintain a healthy lifestyle, well balanced diet including Calcium 1,200 mg and Vitamin D 600 IU daily, and routine exercise. Contact the office with any postmenopausal bleeding. Patient verbalizes understanding and agrees to the plan of care. She was given opportunity to ask questions and all questions were answered to the best of my ability. RTO in 1 year for annual exhibit display representative exam. This note is constructed using voice recognition software. While every effort has been made to ensure accuracy, human resources records clerk errors may have been included. Orders: Orders Bacterial Vaginosis Panel Today N89.8 - Other specified noninflammatory disorders of vagina Group B Strep Culture Today N89.8 - Other specified noninflammatory disorders of vagina Coding Level of Care Code Est Pt Prev Care >65y(50893) Diagnoses Vaginal discharge N89.8 Encounter for well woman exam with routine gynecological exam Z01.419
[2024-11-05 13:03] VITALS: BP 146/88; BMI 26.2
--- OUTSIDE RECORDS SUMMARY | 2024-11-05 13:22 | XMS_ITS | Clinical Summary ---
Author Organization [facility] Address [address] [place] [address] Phone Care Team Providers Care Program Project Analyst Name Role Phone Unavailable Primary Care Provider Unavailabl e Social History Tobacco Use Types Packs/Day Years [...] 02/14/1975 Zoster Vaccines (1 of 2) 02/14/1975 Depression Screening 03/26/2024 Colorectal Cancer Screening: Colonoscopy 07/21/2024 Falls Risk Assessment 07/21/2024 Hepatitis C Screening 07/21/2024 Medicare Annual Wellness Visit 07/21/2024 Osteoporosis Screening (Bone Density Screening) 07/21/2024 Social Influencers of Health Screening 07/21/2024 Influenza Vaccine (#1) 2024 RSV Immunization Adult Patie nts (1 [...] on patient's age to complete this topic Insurance [employer] MEDICARE ADVANTAGE
== END 2024-11-05 13:56 | disposition home or self-care (01) ==
LOC: HO.HWS 12:51
PROVIDERS: PCP Internal Medicine; Visit Provider Advanced Practice Midwife
DX: Z01.419 Encounter for gynecological examination (general) (routine) without abnormal findings (principal); N89.8 Other specified noninflammatory disorders of vagina
CPT/HCPCS: 99397; 99459

== ENCOUNTER 2024-11-05 12:51 | Outpatient (REF) | payer MEDICARE, MEDICAID, SELFPAY | END 2024-11-05 12:52 | disposition home or self-care (01) | LOC: HO.LAB 12:51 | PROVIDERS: PCP Internal Medicine; Visit Provider Advanced Practice Midwife | DX: Z01.419 Encounter for gynecological examination (general) (routine) without abnormal findings (principal); N89.8 Other specified noninflammatory disorders of vagina; Z78.0 Asymptomatic menopausal state | CPT/HCPCS: 99212; 99397; G0101 ==

== ENCOUNTER 2024-11-05 14:12 | Outpatient (REF) | payer MEDICARE, MEDICAID, SELFPAY ==
[2024-11-05 21:48] LABS: Bacterial Vaginosis PCR NEGATIVE (Negative); Candida Group PCR NOT DETECTED (Not Detect); Candida glab krusei PCR DETECTED (Not Detect); Trichomonas vaginalis PCR NOT DETECTED (Not Detect)
== END 2024-11-05 14:13 | disposition home or self-care (01) ==
LOC: HO.LNP 14:12
PROVIDERS: Visit Provider Advanced Practice Midwife
DX: N89.8 Other specified noninflammatory disorders of vagina (principal)
CPT/HCPCS: 81515; 87070; 87081; 87205

== ENCOUNTER 2024-11-06 10:47 | Outpatient (AMB) | payer MEDICARE, MEDICAID, SELFPAY ==
[2024-11-06 10:53] VITALS: BP 140/70; PULSE 68; O2SAT 98; BMI 26.1
--- NOTE | 2024-11-06 10:53 | A.OFFVIS_ITS ---
Vital Signs 11/06/24 10:53 Height 5 ft 3 in Weight 147 lb 7.828 oz BMI 26.1 BP 140/70 H Blood Pressure Location Lt brachial Position Sitting Pulse 68 Pulse Source Pulse Oximeter Pulse Oximetry (%) 98 Oxygen Delivery Method Room Air Intake Visit Reasons: f/u thyroid cancer Intake Note: Patient present today for thyroid cancer follow up visit. Telephone Directory Deliverer Required: No Accompanied by: Self / Same As Patient Allergies Sulfa (Sulfonamide Antibiotics) Allergy (Severe, Verified 11/06/24 10:56) lip swelling, facial swelling sulfamethoxazole (From BACTRIM) Allergy (Severe, Verified 11/06/24 10:56) FACE/LIP SWELLING adhesive tape (ADHESIVE TAPE) Allergy (Intermediate, Verified 11/06/24 10:56) BLISTERS,SKIN SLOUGHING amlodipine Adverse Reaction (Intermediate, Verified 11/06/24 10:56) Palpitations Medication List - Last Reconciled 11/06/24 by Glo West MD aspirin 81 mg PO DAILY atorvastatin 40 mg PO BEDTIME bisacodyl (Woman's Laxative (bisacodyl)) 10 mg PO BEDTIME PRN chlorhexidine gluconate 0.12% 15 mL buccal DAILY cholecalciferol (vitamin D3) 10 mcg PO BEDTIME CPAP As directed estradiol 0.01%(0.1mg/gram) pea-sized to urethra 3 times a week 30 days fluoxetine 40 mg (2 x 20 mg) PO QAM letrozole 2.5 mg PO DAILY levothyroxine 88 mcg PO DAILY ondansetron 4 mg PO Q6H PRN palbociclib 125 mg PO DAILY polyethylene glycol 3350 (Miralax) 238 grams PO ONCE propranolol ER 120 mg PO Q24H valacyclovir 1 mg PO DAILY valacyclovir 1,000 mg PO DAILY HPI Comments Details: 69-year-old female coming in today for follow up of history of papillary thyroid cancer diagnosed in 2005 status post total thyroidectomy 02/07/2006, found to have left-sided multifocal PTC with the largest focus of 1.6 cm, small foci of PTC in the left lower pole size not described. Negative margins. Two parathyroid glands were removed. AJCC stage I, T1 NX M0. BRIAN initial low risk of recurrence? Status post 107.7 mCi of DAWSON I 131 04/13/2006. With persistent antithyroglobulin antibodies. Currently BRIAN excellent versus indeterminate response to therapy. History of PTC in detail 06/16/2005: Diagnosed with PTC 02/07/2006: Status post total thyroidectomy, AJCC stage I, T1 NX M0. Left-sided 1.6 cm PTC with the intralobar metastasis? Small foci of PTC in the left lower pole not described in size. Margins were less than 1 mm but clear. Two parathyroid glands were removed. 04/13/2006: Status post I 131 DAWSON 107.7 mCi, postablation scan showed uptake in the thyroid bed in salivary glands, noticed in metastasis. Significant gap in information 11/18/2010: Ultrasound head and neck showed no residual tissue, benign lymph node near left where did gland 06/16/2017: Ultrasound of the neck, noted to have some red residual tissue in the right thyroid bed 0.6 X2.4 X 0.6 cm, also small amount of tissue over the right half of the isthmus 0.3 cm. 04/09/2013: Ultrasound of the neck showed a right lymph node lateral to submandibular gland to X1.4 X 0.6 cm with a fat notch. Other lymph nodes noted. 01/13/2016: Thyrogen stimulated whole-body scan done at [facility], TSH 150 mIU per mL, TG undetectable less than 0.2, with TG antibody 179.7. Scan showed increased uptake in the thyroid bed anterior to the trachea 0.1%. 02/10/2016: Ultrasound neck showed multiple benign-looking lymph nodes, also hypoechoic area in the thyroid bed, FNA was performed, no evidence of in a follicular cells negative for malignancy. 06/20/2018: Ultrasound performed by Dr. Duran, showed normal lymph nodes. Right side of the thyroid with the residual tissue 0.97 X1.9 X 0.7 cm. 06/02/2019: Ultrasound of the neck with normal lymph nodes. 09/20/2021: Saw Dr. Awad at [facility] for 2nd opinion, was recommended to serially follow antithyroglobulin antibodies 07/18/2022: Ultrasound of the neck did not show any residual tissue. Normal appearing lymph nodes noted bilaterally. 12/14/23: TSH 0.79, free t4 1.27, Tg LCMS< 0.4, Tg ab 20 Last labs On levothyroxine 88 mcg daily, good adherence and administration. no recent TFTs. Chronic issues with swallowing, no worsening compressive symptoms. she also has metastatic breast cancer, oncology notes reviewed, Her initial diagnosis of right breast cancer was in 2005. She underwent right breast lumpectomy followed by adjuvant chemotherapy and radiation therapy followed by 5 years of tamoxifen. All her care was in [place]. She then presented with shortness of breath and malaise starting in 2019. She was diagnosed with recurrent right pleural effusion, pleural biopsy revealed ER/OH positive, HER2 negative metastatic carcinoma consistent with breast primary. PET-CT performed in April 2020 showed uptake, increased activity involving the pleura.. This is most significant at the superior medial pleural level. 9.7 SUV max. There was mediastinal adenopathy with mild uptake, no other areas of disease She started palliative treatment with aromatase inhibitor, letrozole 2.5 mg daily along with CDK4/6 inhibitor palbociclib 125 mg p.o. daily day 1-21 Q 28 days from April 2020. Remains on letrozole and palbociclib, Dr. José plans to address bone health (osteopenia) once patient returns from [place] . No family history of thyroid cancer. Physical exam General: sitting comfortably in no acute distress HEENT: normocephalic/atraumatic, Neck: supple, Cardiac: normal heart sounds Pulm: normal breath sounds B/L, no added breath sounds Abd: not distended, no tenderness Extremities: no edema, no signs of myxedema Neuro: AAO x3, Speech: normal, no facial droop, moving all 4 extremities Laboratory Tests 03/11/18 05/09/18 07/12/18 11:20 15:20 13:08 TSH Free T4 1.32 1.24 Thyroglobulin LC-MS/MS <0.4 <0.4 Thyroglobulin Thyroglobulin Antibody 94 H 67 H 64 H 09/23/18 12/23/18 03/03/19 13:15 08:40 13:14 TSH Free T4 1.28 1.10 1.31 Thyroglobulin LC-MS/MS <0.4 Thyroglobulin Thyroglobulin Antibody 62 H 06/30/19 10/20/19 01/19/20 11:50 11:45 11:31 TSH 4.32 H Free T4 1.31 1.24 1.42 Thyroglobulin LC-MS/MS <0.4 <0.4 <0.4 Thyroglobulin Thyroglobulin Antibody 63 H 57 H 52 H 01/29/20 03/22/20 04/22/20 11:51 10:55 11:30 TSH 4.33 H 3.36 2.58 Free T4 1.45 1.26 1.36 Thyroglobulin LC-MS/MS <0.4 <0.4 Thyroglobulin Thyroglobulin Antibody 48 H 37 H 05/24/20 07/15/20 09/16/20 12:35 13:10 12:50 TSH 68.61 H 4.58 H 1.95 Free T4 0.40 L 1.21 1.27 Thyroglobulin LC-MS/MS <0.4 <0.4 Thyroglobulin Thyroglobulin Antibody 30 H 53 H 01/11/21 01/13/21 07/04/21 12:48 13:00 10:08 TSH 1.71 1.42 Free T4 1.19 1.26 Thyroglobulin LC-MS/MS <0.4 Thyroglobulin <0.1 L Thyroglobulin Antibody 49 H 44 H 10/21/21 06/26/22 12/19/22 12:15 11:33 12:18 TSH 0.46 0.43 0.42 Free T4 1.31 1.33 1.14 Thyroglobulin LC-MS/MS <0.4 Thyroglobulin <0.1 L Thyroglobulin Antibody 29 H 30 H 12/14/23 03/03/24 11:37 13:18 TSH 0.79 0.78 Free T4 1.27 Thyroglobulin LC-MS/MS <0.4 Thyroglobulin Thyroglobulin Antibody 20 H US SOFT TISSUE NECK 07/18/22 CLINICAL INFORMATION: History of thyroid cancer. Rule out persistence or recurrence. COMPARISON: Ultrasound soft tissue neck 06/13/2017 TECHNIQUE: Ultrasound of the neck soft tissues is performed with high- frequency summers-scale imaging and color Doppler. FINDINGS: THYROID BED: Prior thyroidectomy. No residual thyroid tissue demonstrated in the thyroid bed. No cystic or solid nodules demonstrated in the thyroid bed. RIGHT NECK SOFT TISSUES: Scattered architecturally normal nodes are present. The nodes show normal fatty hilus, normal cortical thickness, and no cystic change or calcification. No abnormal color flow. The largest nodes are as follows: Level 1A: 0.5 x 0.4 x 0.4 cm. Normal bobby architecture. Level 2: 1.2 x 0.7 x 0.7 cm. Normal bobby architecture. Level 5A: 2.0 x 0.6 x 1.2 cm. Normal bobby architecture. LEFT NECK SOFT TISSUES: Scattered architecturally normal nodes are present. The nodes show normal fatty hilus, normal cortical thickness, and no cystic change or calcification. No abnormal color flow. The largest nodes are as follows: Level 2: 1.0 x 0.9 x 1.4 cm. Normal bobby architecture. Level 3: 1.6 x 0.4 x 0.8 cm. Normal bobby architecture. US/US soft tiss head and/or neck IMPRESSION: 1. Bilateral cervical nodes are seen which do not measure pathologically enlarged and demonstrate normal hilar architecture. 2. If clinically indicated further evaluation of the neck soft tissues and nodes may be performed with CT soft tissue neck with intravenous contrast. [facility] Medical History (Updated 11/06/24 @ 12:08 by Glo West MD) Hypothyroidism (acquired) Restless leg syndrome Abnormal cystography Essential tremor Herpes simplex type 2 infection Pleural effusion, malignant (~2019) Chest tube in place Osteopenia History of right breast cancer (~2005) Primary thyroid cancer (~2005) Metastatic breast cancer Arthritis Back pain Hx of radiation therapy History of chemotherapy GERD (gastroesophageal reflux disease) History of anxiety Depression Lab test negative for COVID-19 virus History of palpitations ISH on CPAP Vaginal lesion Shortness of breath Post-surgical hypothyroidism (~2005) Atelectasis of right lung Surgical History Hx of cataract surgery Status post fine needle aspiration Hx of chest tube placement (~2020) History of total right knee replacement (TKR) (~2016) History of colonoscopy (~2018) History of endoscopy (~2018) History of partial mastectomy (~2005) History of thyroidectomy (~2005) Family History Father Alzheimer's disease HTN (hypertension) Mother CHF (congestive heart failure) Renal failure PVD (peripheral vascular disease) HTN (hypertension) Macular degeneration Maternal Grandfather CVD (cardiovascular disease) Myocardial infarction Maternal Grandmother Stomach cancer CVD (cardiovascular disease) Paternal Grandfather Black lung disease Paternal Grandmother No problems noted. Brother Substance use disorder Sister No problems noted. Son No problems noted. Son No problems noted. Family/Other History of breast cancer Maternal Uncle Colon cancer Social History Household Members: Spouse Housing: House Are you a primary director of patient care to a significant other at home: No Do you presently have visiting nurse or other home services: No Alcohol intake: former Comment: no skin breakdown noted Patient Tobacco Use Status: Former Tobacco user Tobacco use type: Cigarette Cigarette Packs Per Day: 1 Years Smoked: 10 yrs e-Cigarette/Vaping Use: Never Used service: No Current occupational status: retired Sexual orientation: Straight/Heterosexual Gender identity: Female Cognitive needs: No Hearing needs: No Vision needs: Yes Physical Exam Vital Signs: Last Vital Signs Pulse 68 11/06/24 10:53 BP 140/70 H 11/06/24 10:53 Pulse Ox 98 11/06/24 10:53 Oxygen Delivery Method Room Air 11/06/24 10:53 BMI result Body Mass Index 26.1 Assessment & Plan Assessment & Plan (1) Primary thyroid cancer: Onset Date: ~2005 Comment: dx Papillary Thyroid Cancer, stage 1 - 06/16/2005, s/p surgery (02/07/06) & DAWSON ( 107.7 mCi) 04/13/06 Code(s): C73 - Malignant neoplasm of thyroid gland Category: Medical Plan: 69-year-old female coming in today for follow up of history of papillary thyroid cancer diagnosed in 2005 status post total thyroidectomy 02/07/2006, found to have left-sided multifocal PTC with the largest focus of 1.6 cm, small foci of PTC in the left lower pole size not described. Negative margins. Two parathyroid glands were removed. AJCC stage I, T1 NX M0. BRIAN initial low risk of recurrence? Status post 107.7 mCi of DAWSON I 131 04/13/2006. With persistent antithyroglobulin antibodies. Currently BRIAN excellent versus indeterminate response to therapy. She has had detectable antithyroglobulin antibodies with these have remained stable/trended down. Last set labs were from last year in November 2023. We will repeat labs now. She remains on levothyroxine 88 mcg daily. If her TG antibodies continue to remained stable, we can liberalize her TSH to keep it between 0.5-2. She is also due for repeat neck imaging, last ultrasound of the neck from June 2022 showed normal-appearing lymph nodes. She is at this point close to 20 years from her diagnosis with no signs of recurrence. This is reassuring. Plan: -continue levothyroxine 88 mcg daily -ordered TSH, free T4, TG and TG antibody levels -ordered ultrasound of the neck -follow up in 5-6 weeks to discuss results (2) Hypothyroidism (acquired): Code(s): E03.9 - Hypothyroidism, unspecified Category: Medical Plan: Currently on levothyroxine 88 mcg daily. If her TG antibodies continue to remained stable, we can liberalize her TSH to keep it between 0.5-2. Plan: -continue levothyroxine 88 mcg daily -ordered TSH, free T4, TG and TG antibody levels Plan I spent 30 minutes in reviewing the record, seeing the patient and documenting in the medical record. Orders: Orders US soft tiss head and/or neck Today C73 - Malignant neoplasm of thyroid gland Thyroglobulin Tumor Marker Today C73 - Malignant neoplasm of thyroid gland Thyroid Stimulating Hormone Today C73 - Malignant neoplasm of thyroid gland Free T4 (Free Thyroxine) Today C73 - Malignant neoplasm of thyroid gland Thyroglobulin Today C73 - Malignant neoplasm of thyroid gland Thyroglobulin Antibodies Today C73 - Malignant neoplasm of thyroid gland Patient Instructions: Do ultrasound of the neck ,someone will call you to schedule , please make sure this is done prior to your follow up Do thyroid blood work Coding Level of Care Code Est Pt Level 4 (09359) Complex EM visit Add On G2211 Diagnoses Primary thyroid cancer C73 Hypothyroidism (acquired) E03.9 Time Spent (min) 30
--- OUTSIDE RECORDS SUMMARY | 2024-11-06 11:54 | XMS_ITS | Clinical Summary ---
Author Organization [facility] Address [address] [place] [address] Phone Care Team Providers Care Separator Inserter Name Role Phone Unavailable Primary Care Provider [...]
== END 2024-11-06 11:40 | disposition home or self-care (01) ==
LOC: HO.ENCR 10:48
PROVIDERS: PCP Internal Medicine; Visit Provider Student in an Organized Health Care Education/Training Program
DX: C73 Malignant neoplasm of thyroid gland (principal); E03.9 Hypothyroidism, unspecified
CPT/HCPCS: 99214; G2211

== ENCOUNTER → 2024-11-06 10:47 | Outpatient (BNVA) | payer MEDICARE, OTHER, SELFPAY | PROVIDERS: PCP Internal Medicine; Visit Provider Student in an Organized Health Care Education/Training Program | DX: C73 Malignant neoplasm of thyroid gland (principal); E03.9 Hypothyroidism, unspecified | CPT/HCPCS: 99212 ==

== ENCOUNTER 2024-11-08 13:56 | Outpatient (REF) | payer MEDICARE, MEDICAID, SELFPAY ==
[2024-11-08 15:51] LABS: Free T4 (Free Thyroxine) 1.27 ng/dL (0.71-1.85); Thyroid Stimulating Hormone 0.51 uIU/mL (0.32-4.0)
[2024-11-10 23:13] LABS: Thyroglobulin <0.1 ng/mL; Thyroglobulin Antibodies 20 IU/mL (< or = 1)
[2024-11-17 19:18] LABS: Thyroglobulin LC/MS/MS <0.4 ng/mL (Athyrotic: <0)
== END 2024-11-08 13:57 | disposition home or self-care (01) ==
LOC: HO.HMGCLDS 13:56
PROVIDERS: PCP Internal Medicine; Visit Provider Student in an Organized Health Care Education/Training Program
DX: C73 Malignant neoplasm of thyroid gland (principal)
CPT/HCPCS: 36415; 84432; 84439; 84443; 86800

== ENCOUNTER 2024-12-08 12:59 | Outpatient (REF) | payer MEDICARE, MEDICAID, SELFPAY ==
--- NOTE | ~2024-12-08 | US_ITS ---
EXAMINATION: US HEAD NECK SOFT TISSUE HISTORY: C73 - Malignant neoplasm of thyroid gland COMPARISON: Comparison is made with the prior examination dated 07/18/2022. FINDINGS: Sonographic examination of the thyroid bed was performed. No residual thyroid tissue is identified. There are multiple normal-appearing lymph nodes including a 2.0 x 0.6 x 1.3 cm right level II node, a 0.4 x 0.3 x 0.4 cm right level VB lymph node, and a 1.5 x 1.0 x 1.9 cm left level IB lymph node. US/US soft tiss head and/or neck IMPRESSION: No residual thyroid tissue or lymphadenopathy is identified. Electronically signed by: Raul Graves MD 12/08/2024 02:46 PM EDT
--- OUTSIDE RECORDS SUMMARY | 2024-12-08 17:58 | XMS_ITS | Clinical Summary ---
Author Organization [facility] Address [address] [place] [address] Phone Care Team Providers Care Wastewater Process Engineer Name Role Phone Unavailable Primary Care Provider [...]
== END 2024-12-08 13:00 | disposition home or self-care (01) ==
LOC: HO.US 12:59
PROVIDERS: PCP Internal Medicine; Visit Provider Student in an Organized Health Care Education/Training Program
DX: C73 Malignant neoplasm of thyroid gland (principal)
CPT/HCPCS: 76536

== ENCOUNTER → 2024-12-08 13:01 | Outpatient (BNV) | payer MEDICARE, MEDICAID, SELFPAY | PROVIDERS: PCP Internal Medicine; Visit Provider Radiology Diagnostic Radiology | DX: C73 Malignant neoplasm of thyroid gland (principal) | CPT/HCPCS: 76536 ==

== ENCOUNTER 2024-12-10 14:57 | Outpatient (AMB) | payer MEDICARE, MEDICAID, SELFPAY ==
[2024-12-10 14:59] VITALS: BP 142/80; PULSE 70; O2SAT 97; BMI 26.0
--- NOTE | 2024-12-10 14:59 | A.OFFVIS_ITS ---
Vital Signs 12/10/24 14:59 Height 5 ft 3 in Weight 146 lb 9.718 oz BMI 26.0 BP 142/80 H Blood Pressure Location Lt brachial Position Sitting Pulse 70 Pulse Source Pulse Oximeter Pulse Oximetry (%) 97 Oxygen Delivery Method Room Air Intake Visit Reasons: Primary thyroid cancer Intake Note: Patient present today for Primary thyroid cancer. Real Estate Services Administrator Required: No Accompanied by: Self / Same As Patient Allergies Sulfa (Sulfonamide Antibiotics) Allergy (Severe, Verified 12/10/24 15:09) lip swelling, facial swelling sulfamethoxazole (From BACTRIM) Allergy (Severe, Verified 12/10/24 15:09) FACE/LIP SWELLING adhesive tape (ADHESIVE TAPE) Allergy (Intermediate, Verified 12/10/24 15:09) BLISTERS,SKIN SLOUGHING amlodipine Adverse Reaction (Intermediate, Verified 12/10/24 15:09) Palpitations Medication List - Last Reconciled 12/10/24 by Glo West MD aspirin 81 mg PO DAILY atorvastatin 40 mg PO BEDTIME bisacodyl (Woman's Laxative (bisacodyl)) 10 mg PO BEDTIME PRN chlorhexidine gluconate 0.12% 15 mL buccal DAILY cholecalciferol (vitamin D3) 10 mcg PO BEDTIME CPAP As directed estradiol 0.01%(0.1mg/gram) pea-sized to urethra 3 times a week 30 days fluoxetine 40 mg (2 x 20 mg) PO QAM letrozole 2.5 mg PO DAILY levothyroxine 88 mcg PO DAILY ondansetron 4 mg PO Q6H PRN palbociclib 125 mg PO DAILY polyethylene glycol 3350 (Miralax) 238 grams PO ONCE propranolol ER 120 mg PO Q24H valacyclovir 1 mg PO DAILY valacyclovir 1,000 mg PO DAILY HPI Comments Details: 69-year-old female coming in today for follow up of history of papillary thyroid cancer diagnosed in 2005 status post total thyroidectomy 02/07/2006, found to have left-sided multifocal PTC with the largest focus of 1.6 cm, small foci of PTC in the left lower pole size not described. Negative margins. Two pa rathyroid glands were removed. AJCC stage I, T1 NX M0. BRIAN initial low risk of recurrence? Status post 107.7 mCi of DAWSON I 131 04/13/2006. With persistent antithyroglobulin antibodies. Currently BRIAN excellent versus indeterminate response to therapy. History of PTC in detail 06/16/2005: Diagnosed with PTC 02/07/2006: Status post total thyroidectomy, AJCC stage I, T1 NX M0. Left-sided 1.6 cm PTC with the intralobar metastasis? Small foci of PTC in the left lower pole not described in size. Margins were less than 1 mm but clear. Two parathyroid glands were removed. 04/13/2006: Status post I 131 DAWSON 107.7 mCi, postablation scan showed uptake in the thyroid bed in salivary glands, noticed in metastasis. Significant gap in information 11/18/2010: Ultrasound head and neck showed no residual tissue, benign lymph node near left where did gland 06/16/2017: Ultrasound of the neck, noted to have some red residual tissue in the right thyroid bed 0.6 X2.4 X 0.6 cm, also small amount of tissue over the right half of the isthmus 0.3 cm. 04/09/2013: Ultrasound of the neck showed a right lymph node lateral to submandibular gland to X1.4 X 0.6 cm with a fat notch. Other lymph nodes noted. 01/13/2016: Thyrogen stimulated whole-body scan done at [facility], TSH 150 mIU per mL, TG undetectable less than 0.2, with TG antibody 179.7. Scan showed increased uptake in the thyroid bed anterior to the trachea 0.1%. 02/10/2016: Ultrasound neck showed multiple benign-looking lymph nodes, also hypoechoic area in the thyroid bed, FNA was performed, no evidence of in a follicular cells negative for malignancy. 06/20/2018: Ultrasound performed by Dr. Duran, showed normal lymph nodes. Right side of the thyroid with the residual tissue 0.97 X1.9 X 0.7 cm. 06/02/2019: Ultrasound of the neck with normal lymph nodes. 09/20/2021: Saw Dr. Awad at [facility] for 2nd opinion, was recommended to serially follow antithyroglobulin antibodies 07/18/2022: Ultrasound of the neck did not show any residual tissue. Normal appearing lymph nodes noted bilaterally. 12/14/23: TSH 0.79, free t4 1.27, Tg LCMS< 0.4, Tg ab 20 Last labs she also has metastatic breast cancer, oncology notes reviewed, Her initial diagnosis of right breast cancer was in 2005. She underwent right breast lumpectomy followed by adjuvant chemotherapy and radiation therapy followed by 5 years of tamoxifen. All her care was in [place]. She then presented with shortness of breath and malaise starting in 2019. She was diagnosed with recurrent right pleural effusion, pleural biopsy revealed ER/SC positive, HER2 negative metastatic carcinoma consistent with breast primary. PET-CT performed in April 2020 showed uptake, increased activity involving the pleura.. This is most significant at the superior medial pleural level. 9.7 SUV max. There was mediastinal adenopathy with mild uptake, no other areas of disease She started palliative treatment with aromatase inhibitor, letrozole 2.5 mg daily along with CDK4/6 inhibitor palbociclib 125 mg p.o. daily day 1-21 Q 28 days from April 2020. Remains on letrozole and palbociclib, Dr. José plans to address bone health (osteopenia) once patient returns from [place] . No family history of thyroid cancer. Interval history 11/08/2024: TSH 0.51, free T4 1.27, TG less than 0.1, TG antibody 19, TG by LC MS less than 0.4 12/08/2024: Ultrasound neck shows normal-appearing lymph nodes. There is a left level 1B 1.5 cm lymph node which does not have a central hilum, however the level of the neck in which the lymph node is located is not concerning. We will keep an eye on this. On levothyroxine 88 mcg daily, good adherence and administration. Chronic issues with swallowing, no worsening compressive symptoms. Physical exam General: sitting comfortably in no acute distress HEENT: normocephalic/atraumatic, Neck: supple, Cardiac: normal heart sounds Pulm: normal breath sounds B/L, no added breath sounds Abd: not distended, no tenderness Extremities: no edema, no signs of myxedema Neuro: AAO x3, Speech: normal, no facial droop, moving all 4 extremities Laboratory Tests 03/11/18 05/09/18 07/12/18 11:20 15:20 13:08 TSH Free T4 1.32 1.24 Thyroglobulin LC-MS/MS <0.4 <0.4 Thyroglobulin Thyroglobulin Antibody 94 H 67 H 64 H 09/23/18 12/23/18 03/03/19 13:15 08:40 13:14 TSH Free T4 1.28 1.10 1.31 Thyroglobulin LC-MS/MS <0.4 Thyroglobulin Thyroglobulin Antibody 62 H 06/30/19 10/20/19 01/19/20 11:50 11:45 11:31 TSH 4.32 H Free T4 1.31 1.24 1.42 Thyroglobulin LC-MS/MS <0.4 <0.4 <0.4 Thyroglobulin Thyroglobulin Antibody 63 H 57 H 52 H 01/29/20 03/22/20 04/22/20 11:51 10:55 11:30 TSH 4.33 H 3.36 2.58 Free T4 1.45 1.26 1.36 Thyroglobulin LC-MS/MS <0.4 <0.4 Thyroglobulin Thyroglobulin Antibody 48 H 37 H 05/24/20 07/15/20 09/16/20 12:35 13:10 12:50 TSH 68.61 H 4.58 H 1.95 Free T4 0.40 L 1.21 1.27 Thyroglobulin LC-MS/MS <0.4 <0.4 Thyroglobulin Thyroglobulin Antibody 30 H 53 H 01/11/21 01/13/21 07/04/21 12:48 13:00 10:08 TSH 1.71 1.42 Free T4 1.19 1.26 Thyroglobulin LC-MS/MS <0.4 Thyroglobulin <0.1 L Thyroglobulin Antibody 49 H 44 H 10/21/21 06/26/22 12/19/22 12:15 11:33 12:18 TSH 0.46 0.43 0.42 Free T4 1.31 1.33 1.14 Thyroglobulin LC-MS/MS <0.4 Thyroglobulin <0.1 L Thyroglobulin Antibody 29 H 30 H 12/14/23 03/03/24 11:37 13:18 TSH 0.79 0.78 Free T4 1.27 Thyroglobulin LC-MS/MS <0.4 Thyroglobulin Thyroglobulin Antibody 20 H Laboratory Tests 11/08/24 14:00 TSH 0.51 Free T4 1.27 Thyroglobulin <0.1 L Thyroglobulin LC-MS/MS <0.4 Thyroglobulin Antibody 19 H EXAMINATION: US HEAD NECK SOFT TISSUE 12/08/24 HISTORY: C73 - Malignant neoplasm of thyroid gland COMPARISON: Comparison is made with the prior examination dated 07/18/2022. FINDINGS: Sonographic examination of the thyroid bed was performed. No residual thyroid tissue is identified. There are multiple normal-appearing lymph nodes including a 2.0 x 0.6 x 1.3 cm right level II node, a 0.4 x 0.3 x 0.4 cm right level VB lymph node, and a 1.5 x 1.0 x 1.9 cm left level IB lymph node. US/US soft tiss head and/or neck IMPRESSION: No residual thyroid tissue or lymphadenopathy is identified. Electronically signed by: Raul Graves MD 12/08/2024 02:46 PM EDT RP US SOFT TISSUE NECK 07/18/22 CLINICAL INFORMATION: History of thyroid cancer. Rule out persistence or recurrence. COMPARISON: Ultrasound soft tissue neck 06/13/2017 TECHNIQUE: Ultrasound of the neck soft tissues is performed with high- frequency summers-scale imaging and color Doppler. FINDINGS: THYROID BED: Prior thyroidectomy. No residual thyroid tissue demonstrated in the thyroid bed. No cystic or solid nodules demonstrated in the thyroid bed. RIGHT NECK SOFT TISSUES: Scattered architecturally normal nodes are present. The nodes show normal fatty hilus, normal cortical thickness, and no cystic change or calcification. No abnormal color flow. The largest nodes are as follows: Level 1A: 0.5 x 0.4 x 0.4 cm. Normal bobby architecture. Level 2: 1.2 x 0.7 x 0.7 cm. Normal bobby architecture. Level 5A: 2.0 x 0.6 x 1.2 cm. Normal bobby architecture. LEFT NECK SOFT TISSUES: Scattered architecturally normal nodes are present. The nodes show normal fatty hilus, normal cortical thickness, and no cystic change or calcification. No abnormal color flow. The largest nodes are as follows: Level 2: 1.0 x 0.9 x 1.4 cm. Normal bobby architecture. Level 3: 1.6 x 0.4 x 0.8 cm. Normal bobby architecture. US/US soft tiss head and/or neck IMPRESSION: 1. Bilateral cervical nodes are seen which do not measure pathologically enlarged and demonstrate normal hilar architecture. 2. If clinically indicated further evaluation of the neck soft tissues and nodes may be performed with CT soft tissue neck with intravenous contrast. [facility] Medical History (Updated 11/06/24 @ 12:08 by Glo West MD) Hypothyroidism (acquired) Restless leg syndrome Abnormal cystography Essential tremor Herpes simplex type 2 infection Pleural effusion, malignant (~2019) Chest tube in place Osteopenia History of right breast cancer (~2005) Primary thyroid cancer (~2005) Metastatic breast cancer Arthritis Back pain Hx of radiation therapy History of chemotherapy GERD (gastroesophageal reflux disease) History of anxiety Depression Lab test negative for COVID-19 virus History of palpitations ISH on CPAP Vaginal lesion Shortness of breath Post-surgical hypothyroidism (~2005) Atelectasis of right lung Surgical History Hx of cataract surgery Status post fine needle aspiration Hx of chest tube placement (~2020) History of total right knee replacement (TKR) (~2016) History of colonoscopy (~2018) History of endoscopy (~2018) History of partial mastectomy (~2005) History of thyroidectomy (~2005) Family History Father Alzheimer's disease HTN (hypertension) Mother CHF (congestive heart failure) Renal failure PVD (peripheral vascular disease) HTN (hypertension) Macular degeneration Maternal Grandfather CVD (cardiovascular disease) Myocardial infarction Maternal Grandmother Stomach cancer CVD (cardiovascular disease) Paternal Grandfather Black lung disease Paternal Grandmother No problems noted. Brother Substance use disorder Sister No problems noted. Son No problems noted. Son No problems noted. Family/Other History of breast cancer Maternal Uncle Colon cancer Social History Household Members: Spouse Housing: House Are you a primary gericare aide to a significant other at home: No Do you presently have visiting nurse or other home services: No Alcohol intake: former Comment: no skin breakdown noted Patient Tobacco Use Status: Former Tobacco user Tobacco use type: Cigarette Cigarette Packs Per Day: 1 Years Smoked: 10 yrs e-Cigarette/Vaping Use: Never Used service: No Current occupational status: retired Sexual orientation: Straight/Heterosexual Gender identity: Female Cognitive needs: No Hearing needs: No Vision needs: Yes Physical Exam Vital Signs: Last Vital Signs Pulse 70 12/10/24 14:59 BP 142/80 H 12/10/24 14:59 Pulse Ox 97 12/10/24 14:59 Oxygen Delivery Method Room Air 12/10/24 14:59 BMI result Body Mass Index 26.0 Assessment & Plan Assessment & Plan (1) Primary thyroid cancer: Onset Date: ~2005 Comment: dx Papillary Thyroid Cancer, stage 1 - 06/16/2005, s/p surgery (02/07/06) & DAWSON (107.7 mCi) 04/13/06 Code(s): C73 - Malignant neoplasm of thyroid gland Category: Medical Plan: 69-year-old female coming in today for follow up of history of papillary thyroid cancer diagnosed in 2005 status post total thyroidectomy 02/07/2006, found to have left-sided multifocal PTC with the largest focus of 1.6 cm, small foci of PTC in the left lower pole size not described. Negative margins. Two parathyroid glands were removed. AJCC stage I, T1 NX M0. BRIAN initial low risk of recurrence? Status post 107.7 mCi of DAWOSN I 131 04/13/2006. With persistent antithyroglobulin antibodies. Currently BRIAN excellent versus indeterminate response to therapy. She has had detectable antithyroglobulin antibodies with these have remained stable/trended down. She remains on levothyroxine 88 mcg daily. 11/08/2024: TSH 0.51, free T4 1.27, TG less than 0.1, TG antibody 19, TG by LC MS less than 0.4 12/08/2024: Ultrasound neck shows normal-appearing lymph nodes. There is a left level 1B 1.5 cm lymph node which does not have a central hilum, however the level of the neck in which the lymph node is located is not concerning. We will keep an eye on this. Since TG antibodies continue to remained stable, we can liberalize her TSH to keep it between 0.5-2. She is at this point close to 20 years from her diagnosis with no signs of recurrence. This is reassuring. Plan: -continue levothyroxine 88 mcg daily -ordered TSH, free T4, TG and TG antibody levels to be done prior to follow up in November 2025 -ordered ultrasound of the neck for October 2025 prior to follow up in November 2025 -follow up in 1 year (2) Hypothyroidism (acquired): Code(s): E03.9 - Hypothyroidism, unspecified Category: Medical Plan: Currently on levothyroxine 88 mcg daily. Since her TG antibodies continue to remained stable, we can liberalize her TSH to keep it between 0.5-2. TSH from October 2024 at goal at 0.51. Plan: -continue levothyroxine 88 mcg daily -ordered TSH, free T4, TG and TG antibody levels to be done prior to follow up in 1 year Plan I spent 30 minutes in reviewing the record, seeing the patient and documenting in the medical record. Orders: Orders Thyroid Stimulating Hormone 11/02/25 C73 - Malignant neoplasm of thyroid gland, E03.9 - Hypothyroidism, unspecified Thyroglobulin Antibodies 11/02/25 C73 - Malignant neoplasm of thyroid gland, E03.9 - Hypothyroidism, unspecified Thyroglobulin Tumor Marker 11/02/25 C73 - Malignant neoplasm of thyroid gland, E03.9 - Hypothyroidism, unspecified US soft tiss head and/or neck 11/02/25 C73 - Malignant neoplasm of thyroid gland, E03.9 - Hypothyroidism, unspecified Thyroglobulin 11/02/25 C73 - Malignant neoplasm of thyroid gland, E03.9 - Hypothyroidism, unspecified Free T4 (Free Thyroxine) 11/02/25 C73 - Malignant neoplasm of thyroid gland, E03.9 - Hypothyroidism, unspecified Medications: Refilled levothyroxine 88 mcg PO DAILY 90 tabs 4RF E89.0 - Postprocedural hypothyroidism Patient Instructions: Continue levothyroxine 88 mcg daily Do ultrasound of the neck in October 2025, someone we will call you to schedule this, please make sure this is done a few weeks prior to your next follow up with me in November 2025 Do thyroid blood work a week or 2 prior to follow up with me in November 2025, orders have been placed. Follow up in November 2025. Coding Level of Care Code Est Pt Level 4 (83668) Complex EM visit Add On G2211 Diagnoses Primary thyroid cancer C73 Hypothyroidism (acquired) E03.9 Time Spent (min) 30
== END 2024-12-10 15:30 | disposition home or self-care (01) ==
LOC: HO.ENCR 14:58
PROVIDERS: PCP Internal Medicine; Visit Provider Student in an Organized Health Care Education/Training Program
DX: C73 Malignant neoplasm of thyroid gland (principal); E03.9 Hypothyroidism, unspecified
CPT/HCPCS: 99214; G2211

== ENCOUNTER → 2024-12-10 14:57 | Outpatient (BNVA) | payer MEDICARE, MEDICAID, SELFPAY | PROVIDERS: PCP Internal Medicine; Visit Provider Student in an Organized Health Care Education/Training Program | DX: C73 Malignant neoplasm of thyroid gland (principal); E03.9 Hypothyroidism, unspecified | CPT/HCPCS: 99212 ==

== ENCOUNTER 2024-12-24 15:04 | Outpatient (AMB) | payer MEDICARE, MEDICAID, SELFPAY ==
[2024-12-24 15:34] VITALS: BP 126/64; PULSE 68; BMI 25.6
--- NOTE | 2024-12-24 15:34 | MHC.OFFVIS ---
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 Required: No Accompanied by: Self / Same As Patient Allergies Sulfa (Sulfonamide Antibiotics) Allergy (Severe, Verified 12/24/24 15:36) lip swelling, facial swelling sulfamethoxazole (From BACTRIM) Allergy (Severe, Verified 12/24/24 15:36) FACE/LIP SWELLING adhesive tape (ADHESIVE TAPE) Allergy (Intermediate, Verified 12/24/24 15:36) BLISTERS,SKIN SLOUGHING amlodipine Adverse Reaction (Intermediate, Verified 12/24/24 15:36) Palpitations Medication List - Last Reconciled 12/24/24 by Shaun Eubanks MD aspirin 81 mg PO DAILY atorvastatin 40 mg PO BEDTIME cholecalciferol (vitamin D3) 10 mcg PO BEDTIME CPAP As directed estradiol 0.01%(0.1mg/gram) pea-sized to urethra 3 times a week 30 days fluoxetine 40 mg (2 x 20 mg) PO QAM letrozole 2.5 mg PO DAILY levothyroxine 88 mcg PO DAILY ondansetron 4 mg PO Q6H PRN palbociclib 125 mg PO DAILY polyethylene glycol 3350 (Miralax) 238 grams PO ONCE propranolol ER 120 mg PO Q24H valacyclovir 1,000 mg PO DAILY HPI Comments Details: 69-year-old female with background of papillary thyroid tumor as well as right breast cancer. She was seen for palpitations and she improved with propanolol. Due to some insurance issues her propanolol formulation had to be changed to short-acting propanolol. She is saying she has some palpitations but they are not quite bothersome to her. She was diagnosed with malignant pleural effusion which was from a breast cancer metastasis. She underwent chemotherapy and had PET scan recently and she is stable from cancer point of view. Previously her blood pressure was elevated. We started her on amlodipine 2.5 mg once a day. This has improved her blood pressure but still a her readings are little high. She is getting shortness of breath with activity. She has not been active in general. She still gets some atypical chest pains but they are mostly when she is wearing the CPAP. During the day she does not have significant chest discomfort. She had echocardiography which showed normal LV systolic function but did show basal inferior wall motion abnormality which was new compared to before. EKG in the office is normal. She is saying she gets short of breath easily. She previously had right breast radiation many years ago. 12/12/2023: She is here for follow-up. She is saying she has been doing well. No chest pain or shortness of breath. She continues to get palpitations. She said this happened after her propranolol was changed from long-acting to short-acting form. This was an insurance issue unfortunately. She is getting daily palpitations at this point. She also underwent chemotherapy and previously had radiation to her chest-right side. 12/24/24: Here for follow-up. She said for 3 days she was not feeling well and had some palpitations. Otherwise she has been doing fine. She is saying she is back to normal now. She previously had Holter monitoring which did not show any arrhythmia. She is currently taking propranolol. She also has essential tremors diagnosed. [facility] Medical History Hypothyroidism (acquired) Restless leg syndrome Abnormal cystography Essential tremor Herpes simplex type 2 infection Pleural effusion, malignant (~2019) Chest tube in place Osteopenia History of right breast cancer (~2005) Primary thyroid cancer (~2005) Metastatic breast cancer Arthritis Back pain Hx of radiation therapy History of chemotherapy GERD (gastroesophageal reflux disease) History of anxiety Depression Lab test negative for COVID-19 virus History of palpitations ISH on CPAP Vaginal lesion Shortness of breath Post-surgical hypothyroidism (~2005) Atelectasis of right lung Surgical History Hx of cataract surgery Status post fine needle aspiration Hx of chest tube placement (~2020) History of total right knee replacement (TKR) (~2016) History of colonoscopy (~2018) History of endoscopy (~2018) History of partial mastectomy (~2005) History of thyroidectomy (~2005) Family History Father Alzheimer's disease HTN (hypertension) Mother CHF (congestive heart failure) Renal failure PVD (peripheral vascular disease) HTN (hypertension) Macular degeneration Maternal Grandfather CVD (cardiovascular disease) Myocardial infarction Maternal Grandmother Stomach cancer CVD (cardiovascular disease) Paternal Grandfather Black lung disease Paternal Grandmother No problems noted. Brother Substance use disorder Sister No problems noted. Son No problems noted. Son No problems noted. Family/Other History of breast cancer Maternal Uncle Colon cancer Social History Household Members: Spouse Housing: House Are you a primary health care specialist to a significant other at home: No Do you presently have visiting nurse or other home services: No Alcohol intake: former Comment: no skin breakdown noted Patient Tobacco Use Status: Former Tobacco user Tobacco use type: Cigarette Cigarette Packs Per Day: 1 Years Smoked: 10 yrs e-Cigarette/Vaping Use: Never Used service: No Current occupational status: retired Sexual orientation: Straight/Heterosexual Gender identity: Female Cognitive needs: No Hearing needs: No Vision needs: Yes Review of Systems Const Denies daytime sleepiness, Denies difficulty sleeping, Denies snoring, Denies stops breathing during sleep and Denies weakness Card Denies chest pain, Denies rapid heart rate, Denies irregular heart rhythm, Denies claudication, Denies leg edema, Denies lightheadedness, Reports palpitations, Denies dyspnea, Denies dyspnea on exertion, Denies orthopnea, Denies paroxysmal nocturnal dyspnea and Denies slow heart rate Resp Denies cough, Denies dyspnea, Denies dyspnea on exertion and Denies snoring GI Reports no additional complaints, Denies hematochezia, Denies change in stool character and Denies dyspepsia Musc Denies abnormal gait, Denies muscle weakness and Denies numbness Neuro Denies abnormal gait, Denies numbness and Denies weakness Endo Reports palpitations Physical Exam Vital Signs: Last Vital Signs Pulse 68 12/24/24 15:34 BP 126/64 12/24/24 15:34 BMI result Body Mass Index 25.6 GENERAL APPEARANCE: in no acute distress, well developed, well nourished. NECK/THYROID: no carotid bruit, no jugular venous distention. SKIN: no suspicious lesions, warm and dry. HEART: no murmurs, regular rate and rhythm, S1, S2 normal. LUNGS: clear to auscultation bilaterally. ABDOMEN: normal, bowel sounds present, soft, nontender, nondistended. EXTREMITIES: no clubbing, cyanosis, or edema. PERIPHERAL PULSES: equal. NEUROLOGIC: nonfocal, alert and oriented. PSYCH: mood/affect full range. Office Procedures EKG Details: Sinus rhythm 68 beats per minute, normal ECG, QTC 457 milliseconds. [id number], Complete Assessment & Plan Assessment & Plan (1) Palpitations: Code(s): R00.2 - Palpitations Category: Medical (2) Essential hypertension: Code(s): I10 - Essential (primary) hypertension Category: Medical Plan Pleasant 69-year-old lady who is here for follow-up. She has known history of metastatic breast cancer and papillary thyroid cancer. She is in remission for both currently. Overall doing well. Previous coronary CTA did not show any coronary disease-she was complaining of bandlike chest discomfort at that time. Previous monitoring has not shown any arrhythmia. She is on propranolol. She continues to have off and on palpitations which are short-lived. We have decided not to do any monitoring currently. I have advised her to consider buying [employer] device. Follow up in 1 year. Thank you for allowing me to participate in the care of your patient. Please feel free to contact me if you have any questions. Coding Level of Care Code Est Pt Level 4 (79838) Diagnoses Palpitations R00.2 Essential hypertension I10 CPT Codes EKG - CPT: 00709-[id number], Complete ([id number])
== END 2024-12-24 15:58 | disposition home or self-care (01) ==
LOC: HO.HCS 15:05
PROVIDERS: PCP Internal Medicine; Visit Provider Internal Medicine Cardiovascular Disease
DX: R00.2 Palpitations (principal); I10 Essential (primary) hypertension
CPT/HCPCS: 93010; 99214

== ENCOUNTER → 2024-12-24 15:04 | Outpatient (BNVA) | payer MEDICARE, OTHER, SELFPAY | PROVIDERS: PCP Internal Medicine; Visit Provider Internal Medicine Cardiovascular Disease | DX: R00.2 Palpitations (principal); I10 Essential (primary) hypertension | CPT/HCPCS: 93005; 99212 ==

== ENCOUNTER 2025-01-29 08:03 | Day surgery (SDC) | payer MEDICARE, OTHER, SELFPAY ==
[2025-01-27 12:24] VITALS: BMI 25.5
--- NOTE | 2025-01-27 12:38 | HO.ANESPROP2 ---
Documented by User: Emiliana Cotton NP 01/27/25 13:15 HPI - Anesthesia Eval Consult details Narrative: 69 yr old female for colonoscopy H/O papillary thyroid CA, metastatic breast CA: s/p thyroidectomy; chemo, radiation - both stable Follows [facility] [place] for H/O palpitations: no recent symptoms, last visit 12/[address] Eubanks, deemed low to intermediate cardiac risk H/O malignant pleural effusion 2/2 breast cancer: Last imaging with PET-CT performed at [facility] in June 2024 showed multifocal right-sided pleural-based metabolic activity, fairly similar to PET-CT from December 2020 ISH: on CPAP PMFSH Active Problems Active Problems: All Active Problems Hypothyroidism (acquired) (Acute) Urethral caruncle (Acute) Hypocalcemia (Acute) Benign head tremor (Acute) Constipation (Acute) TMJ arthralgia (Acute) Encounter for well woman exam with routine gynecological exam (Acute) Annual physical exam (Acute) Dysuria (Acute) CAD (coronary atherosclerotic disease) (Acute) Cataract (Acute) Dyspnea on exertion (Acute) Hyperlipidemia (Acute) Essential hypertension (Acute) Chest pain (Acute) Palpitations (Acute) Encounter for preoperative pulmonary examination (Acute) Encounter for general adult medical examination with abnormal findings (Acute) Lymphadenopathy (Acute) Palpitations (Acute) Abnormal finding on CT scan (Acute) Dyspnea (Acute) Microscopic hematuria (Acute) Pleural effusion, right (Acute) Depression (Acute) Herpes simplex type 2 infection (Acute) ISH on CPAP (Acute) Metastatic breast cancer (Chronic) Pleural effusion, malignant (Acute ~2019) Chest tube in place (Acute) Primary thyroid cancer (Acute ~2005) Vaginal lesion (Acute) Shortness of breath (Acute) Post-surgical hypothyroidism (Acute ~2005) Atelectasis of right lung (Acute) Past Medical History Medical History Hypothyroidism (acquired) Restless leg syndrome Abnormal cystography Essential tremor Herpes simplex type 2 infection Pleural effusion, malignant (~2019) Chest tube in place Osteopenia History of right breast cancer (~2005) Primary thyroid cancer (~2005) Metastatic breast cancer Arthritis Back pain Hx of radiation therapy History of chemotherapy GERD (gastroesophageal reflux disease) History of anxiety Depression Lab test negative for COVID-19 virus History of palpitations ISH on CPAP Vaginal lesion Shortness of breath Post-surgical hypothyroidism (~2005) Atelectasis of right lung Family History Family History Father Alzheimer's disease HTN (hypertension) Mother CHF (congestive heart failure) Renal failure PVD (peripheral vascular disease) HTN (hypertension) Macular degeneration Maternal Grandfather CVD (cardiovascular disease) Myocardial infarction Maternal Grandmother Stomach cancer CVD (cardiovascular disease) Paternal Grandfather Black lung disease Paternal Grandmother No problems noted. Brother Substance use disorder Sister No problems noted. Son No problems noted. Son No problems noted. Family/Other History of breast cancer Maternal Uncle Colon cancer Family history of problems with anesthesia: No Surgical History Surgical History Hx of cataract surgery Status post fine needle aspiration Hx of chest tube placement (~2020) History of total right knee replacement (TKR) (~2016) History of colonoscopy (~2018) History of endoscopy (~2018) History of partial mastectomy (~2005) History of thyroidectomy (~2005) History of Problems with Anesthesia: No Social History Social History Household Members: Spouse Housing: House Are you a primary resident care supervisor to a significant other at home: No Do you presently have visiting nurse or other home services: No Alcohol intake: former Comment: no skin breakdown noted Patient Tobacco Use Status: Former Tobacco user Tobacco use type: Cigarette Cigarette Packs Per Day: 1 Years Smoked: 10 yrs e-Cigarette/Vaping Use: Never Used Substance Use Frequency: Daily Have you been hit, kicked, punched, or otherwise hurt by someone within the past year? If so, by whom?: No Are you DNR?: No Advance Directives: No Advance Directives Information Provided: Yes service: No Current occupational status: retired Sexual orientation: Straight/Heterosexual Gender identity: Female Cognitive needs: No Hearing needs: No Vision needs: Yes Meds Allergies Allergy/AdvReac Type Severity Reaction Status Date / Time Sulfa (Sulfonamide Allergy Severe lip Verified 01/29/25 08:14 Antibiotics) swelling, facial swelling sulfamethoxazole (From Allergy Severe FACE/LIP Verified 01/29/25 08:14 BACTRIM) SWELLING adhesive tape (ADHESIVE TAPE) Allergy Intermediate BLISTERS,SKIN Verified 01/29/25 08:14 SLOUGHING amlodipine AdvReac Intermediate Palpitation Verified 01/29/25 08:14 s Home Medications ?Medication ?Instructions ?Recorded ?Confirmed ?Last Taken ?Type cholecalciferol (vitamin D3) 10 10 mcg PO BEDTIME 04/02/20 01/27/25 Unknown History mcg (400 unit) capsule CPAP 09/14/22 01/27/25 Unknown History aspirin 81 mg tablet,delayed 81 mg PO DAILY 01/03/23 01/27/25 Unknown History release Exam Height,Weight and Vital Signs: Height 5 ft 3 in Weight 65.317 kg Narrative Narrative: ECHO 12/2023 Conclusions: - 1. Normal LV ejection fraction 55-60% with impaired relaxation filling pattern 2. Calcific aortic valve changes noted with normal cardiac valvular Dopplers 3. Normal RV systolic pressure 4. No gross pericardial effusion EKG 12/2024 NSR, rate 68 Assessment and Plan Final Anesthetic Review Family History of Problems with Anesthesia: No History of Problems with Anesthesia: No Documented by User: Lex Michaels MD 01/29/25 08:59 PMFSH Past Medical History Medical History Hypothyroidism (acquired) Restless leg syndrome Abnormal cystography Essential tremor Herpes simplex type 2 infection Pleural effusion, malignant (~2019) Chest tube in place Osteopenia History of right breast cancer (~2005) Primary thyroid cancer (~2005) Metastatic breast cancer Arthritis Back pain Hx of radiation therapy History of chemotherapy GERD (gastroesophageal reflux disease) History of anxiety Depression Lab test negative for COVID-19 virus History of palpitations ISH on CPAP Vaginal lesion Shortness of breath Post-surgical hypothyroidism (~2005) Atelectasis of right lung Functional capacity: independent ambulation Family History Family History Father Alzheimer's disease HTN (hypertension) Mother CHF (congestive heart failure) Renal failure PVD (peripheral vascular disease) HTN (hypertension) Macular degeneration Maternal Grandfather CVD (cardiovascular disease) Myocardial infarction Maternal Grandmother Stomach cancer CVD (cardiovascular disease) Paternal Grandfather Black lung disease Paternal Grandmother No problems noted. Brother Substance use disorder Sister No problems noted. Son No problems noted. Son No problems noted. Family/Other History of breast cancer Maternal Uncle Colon cancer Surgical History Surgical History Hx of cataract surgery Status post fine needle aspiration Hx of chest tube placement (~2020) History of total right knee replacement (TKR) (~2016) History of colonoscopy (~2018) History of endoscopy (~2018) History of partial mastectomy (~2005) History of thyroidectomy (~2005) Social History Social History Household Members: Spouse Housing: House Are you a primary resident care supervisor to a significant other at home: No Do you presently have visiting nurse or other home services: No Alcohol intake: former Comment: no skin breakdown noted Patient Tobacco Use Status: Former Tobacco user Tobacco use type: Cigarette Cigarette Packs Per Day: 1 Years Smoked: 10 yrs e-Cigarette/Vaping Use: Never Used Substance Use Frequency: Daily Have you been hit, kicked, punched, or otherwise hurt by someone within the past year? If so, by whom?: No Are you DNR?: No Advance Directives: No Advance Directives Information Provided: Yes service: No Current occupational status: retired Sexual orientation: Straight/Heterosexual Gender identity: Female Cognitive needs: No Hearing needs: No Vision needs: Yes Meds Allergies Allergy/AdvReac Type Severity Reaction Status Date / Time Sulfa (Sulfonamide Allergy Severe lip Verified 01/29/25 08:14 Antibiotics) swelling, facial swelling sulfamethoxazole (From Allergy Severe FACE/LIP Verified 01/29/25 08:14 BACTRIM) SWELLING adhesive tape (ADHESIVE TAPE) Allergy Intermediate BLISTERS,SKIN Verified 01/29/25 08:14 SLOUGHING amlodipine AdvReac Intermediate Palpitation Verified 01/29/25 08:14 s Home Medications ?Medication ?Instructions ?Recorded ?Confirmed ?Last Taken ?Type cholecalciferol (vitamin D3) 10 10 mcg PO BEDTIME 04/02/20 01/27/25 Unknown History mcg (400 unit) capsule CPAP 09/14/22 01/27/25 Unknown History aspirin 81 mg tablet,delayed 81 mg PO DAILY 01/03/23 01/27/25 Unknown History release Exam Exam Date and Time: 01/29/2025 Airway Mallampati Class: II Loose/Missing/Broken Teeth: No Heart: normal Lungs: normal Other: normal Assessment and Plan Assessment Anesthesia Assessment: Anesthesia Plan Discussed and Chart Reviewed Final Anesthetic Review NPO: Yes ASA Class: II Final Preanesthetic Review: No Changes in Pt Med Stat, Meds/Allgs Chart Reviewed, Consent Obtained/Reviewed and Anes Risks/Benef Reviewed Patient Risk: Low Procedure Risk: Low Anesthetic Plan Anesthetic Plan: MAC: Disposition: Standard PACU
[2025-01-29 08:12] VITALS: BMI 25.8
[2025-01-29] MEDS: Lactated Ringers 1,000 ML 100 ML IVCONT (08:15)
--- NOTE | 2025-01-29 08:24 | MHC.SHP ---
Pre-Procedural Eval Section A - 24 Hr Update-Section A only Date of Service: 01/29/25 Section B - Complete if H&P > 30 days Chief Complaint: Hx of polyps Details of Present Illness: Herpes simplex type 2 infection Pleural effusion, malignant (~2019) Chest tube in place Osteopenia History of right breast cancer (~2005) Primary thyroid cancer (~2005) Metastatic breast cancer Arthritis Back pain Hx of radiation therapy History of chemotherapy GERD (gastroesophageal reflux disease) History of anxiety Depression Lab test negative for COVID-19 virus History of palpitations ISH on CPAP Vaginal lesion Shortness of breath Post-surgical hypothyroidism (~2005) Atelectasis of right lung Surgical History Hx of cataract surgery Status post fine needle aspiration Hx of chest tube placement (~2020) History of total right knee replacement (TKR) (~2016) History of colonoscopy (~2018) History of endoscopy (~2018) History of partial mastectomy (~2005) History of thyroidectomy (~2005) Present Medications: see Short Stay Collaborative assessment Allergies: Allergies Allergy/AdvReac Type Severity Reaction Status Date / Time Sulfa (Sulfonamide Allergy Severe lip Verified 01/29/25 08:14 Antibiotics) swelling, facial swelling sulfamethoxazole (From Allergy Severe FACE/LIP Verified 01/29/25 08:14 BACTRIM) SWELLING adhesive tape (ADHESIVE TAPE) Allergy Intermediate BLISTERS,SKIN Verified 01/29/25 08:14 SLOUGHING amlodipine AdvReac Intermediate Palpitation Verified 01/29/25 08:14 s Review of Systems Review of Systems Comment: Ten point ROS negative Exam Exam Comment: Gen appear: No acute distress HEENT: no icterus Chest: No overt resp distress Abd: soft, nontender, nondistended Psych: Stable affect, answering questions appropriately Neuro: A/Ox3 noted to move all extremities spontaneously Ext: no peripheral edema Plan Diagnosis/Plan: Unchanged I have reviewed the history and physical and performed a pertinent physical examination on my patient. No changes have occurred unless specified. Time Spent With Patient Time: Total time managing care of this patient today ____ minutes.
[2025-01-29 08:29] VITALS: BP 152/72; PULSE 75; RESP 18; TEMP 36.6; O2SAT 96
--- NOTE | 2025-01-29 09:25 | P.OPN-COLO_ITS ---
Colonoscopy Operative Note Operative Note Date of Service: 01/29/25 Narrative: Procedure: Colonoscopy Indication: Personal history of polyps Endoscopist: Saige Chiu MD Anesthesia Provider: Dr Michaels Anesthesia type: MAC Instrument: Olympus [id number]-[id number] Consent: Indication, risks vs benefits, and alternatives were discussed with the patient who gave written informed consent to proceed. EKG, pulse, pulse oximetry and blood pressure were monitored throughout the procedure. Please see anesthesia flowsheet. Procedure: The patient was brought to the procedure room and placed in the left lateral decubitus position. IV medications were administered by the anesthesia provider in attendance. A digital rectal exam was performed which was abnormal due to finding of hemorrhoids. A distal attachment cap was affixed to the tip of the colonoscope which was then inserted through the anus and advanced through the colon to the cecum at 75 cm,and terminal ileum. Appendiceal orifice and ileocecal valve were identified. Mucosa was carefully examined under high definition white light as the instrument was slowly withdrawn in a retrograde panoramic fashion. Retroflexion was performed in rectum. The procedure was not difficult. There were no immediate obvious complications. The quality of the prep was BBPS: 3+3+3 = adequate Withdrawal time 10 minutes. Limitations: No limitations. Findings: Mucosa: Loss of normal vacular pattern with edematous appearing colon mucosa suspicious for underlying microscopic colitis. Terminal ileum mucosa was normal. Cold forceps biopsies were taken from right and left side of the colon and sent for histology. Protruding lesions: * Large internal hemorrhoids without stigmata of recent bleeding. Excavated lesions: * Mild diverticulosis of sigmoid colon. Impression: 1. Abnormal colon mucosa (biopsy) 2. Divericulosis 3. External and internal hemorrhoids Recommendations: - Follow path results. - Repeat colonoscopy in 10 years for asymptomatic colorectal ca screening.
[2025-01-29 09:30] VITALS: BP 107/52; PULSE 67; RESP 16; TEMP 36.6; O2SAT 95
[2025-01-29 09:45] VITALS: BP 140/61; PULSE 69; RESP 17; TEMP 36.6; O2SAT 97
== END 2025-01-29 10:42 | disposition home or self-care (01) ==
PROVIDERS: PCP Internal Medicine; Visit Provider Internal Medicine
PROC: 0DJD8ZZ Inspection of Lower Intestinal Tract, Via Natural or Artificial Opening Endoscopic (ICD-10-PCS; CPT 45378; principal; 2025-01-29 12:40)
DX: Z12.11 Encounter for screening for malignant neoplasm of colon (principal); Z86.0109 Personal history of other colon polyps; K52.9 Noninfective gastroenteritis and colitis, unspecified; K57.30 Diverticulosis of large intestine without perforation or abscess without bleeding
CPT/HCPCS: G0121; 88305; J2003; J2704; J3010

== ENCOUNTER → 2025-01-29 08:03 | Outpatient (BNV) | payer MEDICARE, MEDICAID, SELFPAY | PROVIDERS: PCP Internal Medicine; Visit Provider Internal Medicine | DX: Z12.11 Encounter for screening for malignant neoplasm of colon (principal); Z86.0100 Personal history of colon polyps, unspecified; K57.30 Diverticulosis of large intestine without perforation or abscess without bleeding; K64.8 Other hemorrhoids | CPT/HCPCS: 45380 ==

== ENCOUNTER 2025-02-10 10:35 | Outpatient (AMB) | payer MEDICARE, MEDICAID, SELFPAY ==
--- NOTE | 2025-02-10 10:50 | MHC.OFFVIS ---
Intake Visit Reasons: 6m f/u Intake Note: Patient is present for 6 mo follow up patient is c/o frequent urination patient feels like estrace cream is heloing with Mmicro hematuria Urology Medication:NONE Antibiotic Allergy:SULFA,BACTRIM Blood Thinner:ASPIRIN PVR:11 mls Patient did bring in PET CT results to review with you Respite Provider Required: No Accompanied by: Self / Same As Patient Allergies Sulfa (Sulfonamide Antibiotics) Allergy (Severe, Verified 02/10/25 11:13) lip swelling, facial swelling sulfamethoxazole (From BACTRIM) Allergy (Severe, Verified 02/10/25 11:13) FACE/LIP SWELLING adhesive tape (ADHESIVE TAPE) Allergy (Intermediate, Verified 02/10/25 11:13) BLISTERS,SKIN SLOUGHING amlodipine Adverse Reaction (Intermediate, Verified 02/10/25 11:13) Palpitations HPI Comments Details: Flaca is a pleasant female. She is a patient of Dr. Lyn. She is seen for the following urologic conditions - microscopic hematuria Six-month follow-up Continues with microscopic hematuria Previously suggested Estrace cream Prior examination has caruncle and grade 2 rectocele Has been on topical Estrace Does have prior history of metastatic breast cancer This is not a contraindication for topical Estrace therapy - there are at least 3 large scale randomized control trials showing quality of life benefit with no impact on systemic estradiol levels Recent PET-CT shows decrease in FDG activity Microscopic hematuria Previous evaluation in 2017 normal Recent ultrasound with normal kidneys and bladder emptying UA 2+ Cytology no abnormality detected Does have concerns regarding rectocele and cystocele Reports occasional locking of urine 2 full-term pregnancies with 12 hour labors [facility] Medical History Hypothyroidism (acquired) Restless leg syndrome Abnormal cystography Essential tremor Herpes simplex type 2 infection Pleural effusion, malignant (~2019) Chest tube in place Osteopenia History of right breast cancer (~2005) Primary thyroid cancer (~2005) Metastatic breast cancer Arthritis Back pain Hx of radiation therapy History of chemotherapy GERD (gastroesophageal reflux disease) History of anxiety Depression Lab test negative for COVID-19 virus History of palpitations ISH on CPAP Vaginal lesion Shortness of breath Post-surgical hypothyroidism (~2005) Atelectasis of right lung Surgical History Hx of cataract surgery Status post fine needle aspiration Hx of chest tube placement (~2020) History of total right knee replacement (TKR) (~2016) History of colonoscopy (~2018) History of endoscopy (~2018) History of partial mastectomy (~2005) History of thyroidectomy (~2005) Family History Father Alzheimer's disease HTN (hypertension) Mother CHF (congestive heart failure) Renal failure PVD (peripheral vascular disease) HTN (hypertension) Macular degeneration Maternal Grandfather CVD (cardiovascular disease) Myocardial infarction Maternal Grandmother Stomach cancer CVD (cardiovascular disease) Paternal Grandfather Black lung disease Paternal Grandmother No problems noted. Brother Substance use disorder Sister No problems noted. Son No problems noted. Son No problems noted. Family/Other History of breast cancer Maternal Uncle Colon cancer Social History Household Members: Spouse Housing: House Are you a primary adult care manager to a significant other at home: No Do you presently have visiting nurse or other home services: No Alcohol intake: former Comment: no skin breakdown noted Patient Tobacco Use Status: Former Tobacco user Tobacco use type: Cigarette Cigarette Packs Per Day: 1 Years Smoked: 10 yrs e-Cigarette/Vaping Use: Never Used service: No Current occupational status: retired Sexual orientation: Straight/Heterosexual Gender identity: Female Cognitive needs: No Hearing needs: No Vision needs: Yes Review of Systems Const Denies chills and Denies fever(s) Card Reports no additional complaints and Denies syncope Resp Denies cough GI Denies abdominal pain and Denies heartburn Reports as per HPI and Denies change in libido Neuro Denies syncope Psych Denies change in libido Endo Denies change in libido Physical Exam Const General: cooperative, healthy appearing, comfortable and no acute distress Orientation/consciousness: patient oriented x3 HEENT Face and sinus: Yes normal facial exam Mouth: moist mucous membranes Neck Neck: Yes normal visual inspection, Yes full ROM and Yes trachea midline Chest Chest palpation & inspection: normal inspection of the chest Resp Effort & Inspection: normal respiratory effort, able to speak in complete sentences and no respiratory distress GI Inspection: Yes normal to inspection Back/Spine/Pelvis Cervical Spine: normal cervical lordosis Thoracic/Lumbar Spine: thoracic and lumbar spine normal to inspection Skin General skin exam: no rashes or lesions noted Neuro General: patient oriented x3, gait normal, tone normal and moves all extremities Extrem General: Yes normal to inspection and Yes capillary refill normal Office Procedures Post Void Residual Post Residual Void Post Void Residual (PVR): 12310-Chip Void Residual by ultrasound Results AMB Urinalysis, Automated UA Leukoctes 125 Lv/uL Last Edit by Lani Douglass [facility] on 02/10/25 11:14 UA Nitrite Negative Last Edit by Lani Douglass, [facility] on 02/10/25 11:14 UA Urobilinogen 0.2 mg/dL Last Edit by Lani Douglass [facility] on 02/10/25 11:14 UA Protein 0 mg/dL Last Edit by Lani Douglass [facility] on 02/10/25 11:14 UA pH 6.5 Last Edit by Lani Douglass [facility] on 02/10/25 11:14 UA Blood 80 Onel/uL Last Edit by Lani Douglass [facility] on 02/10/25 11:14 UA Specific [place] 1.010 Last Edit by Lani Douglass [facility] on 02/10/25 11:14 UA Ketone Negative Last Edit by Lani Douglass [facility] on 02/10/25 11:14 UA Bilirubin 0 mg/dL Last Edit by Lani Douglass [facility] on 02/10/25 11:14 UA Glucose 0 mg/dL Last Edit by Lani Douglass [facility] on 02/10/25 11:14 Results Reviewed Results Reviewed: Laboratory Last Values Urine pH (Auto) 6.5 02/10/25 11:14 Specific [place] (Auto) 1.010 02/10/25 11:14 Urine Protein (Auto) 0 mg/dL 02/10/25 11:14 Glucose (UA)(Auto) 0 mg/dL 02/10/25 11:14 Urine Ketones (Auto) Negative 02/10/25 11:14 Urine Blood (Auto) 80 Onel/uL 02/10/25 11:14 Urine Nitrite (Auto) Negative 02/10/25 11:14 Urine Bilirubin (Auto) 0 mg/dL 02/10/25 11:14 Urine Urobilinogen (Auto) 0.2 mg/dL 02/10/25 11:14 Leukocyte Esterase (Auto) 125 Lv/uL 02/10/25 11:14 Assessment & Plan Assessment & Plan (1) Microscopic hematuria: Comment: chronic, negative cystoscopy by urogynecologist at [facility] years ago Code(s): R31.29 - Other microscopic hematuria Category: Medical (2) Urethral caruncle: Code(s): 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 Category: Medical Plan Continue Estrace cream Patient Instructions: This note is constructed using voice recognition software. While every effort has been made to ensure accuracy senior data architect errors may have been included. Imaging studies, laboratory and physical exam results were discussed and reviewed in detail. No major barriers to patient understanding were identified. An opportunity to ask questions regarding the treatment plan was provided. All questions were answered. The patient expressed understanding and agreement with the above treatment plan. The patient is aware they should contact our office by phone for worsening of their current condition or the appearance of new urologic symptoms. Compliance is encouraged with any medications and followup testing that is ordered. It is a privilege to participate in the urologic care of your patient. If you have any questions or concerns regarding treatment for the above conditions, or other urologic issues, please do not hesitate to contact me. The office telephone contact is [phone]. Sincerely, Dr Martinez Tyson MD, [facility] - Urology Compassionate Specialist Care for the Genitourinary System Coding Level of Care Code Est Pt Level 3 (00582) Complex EM visit Add On G2211 Diagnoses Microscopic hematuria R31.29 Urethral caruncle N36.2 CPT Codes Post Residual Void - PVR CPT Code: 13109-Bhcm Void Residual by ultrasound ([id number])
== END 2025-02-10 11:31 | disposition home or self-care (01) ==
LOC: HO.HUSH 10:36
PROVIDERS: PCP Internal Medicine; Visit Provider Urology
DX: R31.29 Other microscopic hematuria (principal); N36.2 Urethral caruncle
CPT/HCPCS: 99213; G2211

== ENCOUNTER → 2025-02-10 10:35 | Outpatient (BNVA) | payer MEDICARE, MEDICAID, SELFPAY | PROVIDERS: PCP Internal Medicine; Visit Provider Urology | DX: N36.2 Urethral caruncle (principal); R31.29 Other microscopic hematuria | CPT/HCPCS: 51798; 99212 ==

== ENCOUNTER 2025-03-17 09:56 | Outpatient (AMB) | payer MEDICARE, SELFPAY ==
[2025-03-17 09:58] VITALS: BP 140/88; PULSE 71; RESP 16; O2SAT 97; BMI 25.3
--- NOTE | 2025-03-17 09:58 | A.OFFPC_ITS ---
Vital Signs 03/17/25 09:58 Height 5 ft 3 in Weight 143 lb BMI 25.3 BP 140/88 H Blood Pressure Location Lt brachial Position Sitting Respiration 16 Pulse 71 Pulse Source Pulse Oximeter Pulse Oximetry (%) 97 Oxygen Delivery Method Room Air Intake Visit Reasons: Ear Pain/ Swollen Glands Accompanied by: Self / Same As Patient Allergies Sulfa (Sulfonamide Antibiotics) Allergy (Severe, Verified 03/17/25 09:59) lip swelling, facial swelling sulfamethoxazole (From BACTRIM) Allergy (Severe, Verified 03/17/25 09:59) FACE/LIP SWELLING adhesive tape (ADHESIVE TAPE) Allergy (Intermediate, Verified 03/17/25 09:59) BLISTERS,SKIN SLOUGHING amlodipine Adverse Reaction (Intermediate, Verified 03/17/25 09:59) Palpitations Medication List - Last Reconciled 03/17/25 by Celsa Lyn MD aspirin 81 mg PO DAILY atorvastatin 40 mg PO BEDTIME azithromycin For 250 mg dose pack: take 500 mg today (day 1), then 250 mg for 4 days (days 2-5) PO cholecalciferol (vitamin D3) 10 mcg PO BEDTIME CPAP As directed estradiol 0.01%(0.1mg/gram) pea-sized to urethra 3 times a week 30 days fluoxetine 40 mg (2 x 20 mg) PO QAM letrozole 2.5 mg PO DAILY levothyroxine 88 mcg PO DAILY ondansetron 4 mg PO Q6H PRN palbociclib 125 mg PO DAILY polyethylene glycol 3350 (Miralax) 238 grams PO ONCE propranolol ER 120 mg PO DAILY valacyclovir 1,000 mg PO DAILY Tobacco use date assessed: 03/17/25 Fall risk assessment: No Falls in past year Dental Screening Dental Screen Date: 03/17/25 Did you have a dental visit in the last 12 months?: Yes Did you have a dental problem in the last 6 months where you did not have access to dental care?: No Was dental information given to patient?: Patient has dentist HPI Ear Pain/ Swollen Glands 2 HPI Details Pt presents complaining of 2 months of intermittent sinus congestion, sore throat, ear fullness, postnasal drip. She reports intermittent dry cough but no sputum production fever chills pleurisy. [facility] Medical History (Updated 03/17/25 @ 10:29 by Celsa Lyn MD) Pleural effusion, right Essential hypertension Hypothyroidism (acquired) Restless leg syndrome Abnormal cystography Essential tremor Herpes simplex type 2 infection Pleural effusion, malignant (~2019) Chest tube in place Osteopenia History of right breast cancer (~2005) Primary thyroid cancer (~2005) Metastatic breast cancer Arthritis Back pain Hx of radiation therapy History of chemotherapy GERD (gastroesophageal reflux disease) History of anxiety Depression Lab test negative for COVID-19 virus History of palpitations ISH on CPAP Vaginal lesion Shortness of breath Post-surgical hypothyroidism (~2005) Atelectasis of right lung Surgical History Hx of cataract surgery Status post fine needle aspiration Hx of chest tube placement (~2020) History of total right knee replacement (TKR) (~2016) History of colonoscopy (~2018) History of endoscopy (~2018) History of partial mastectomy (~2005) History of thyroidectomy (~2005) Family History Father Alzheimer's disease HTN (hypertension) Mother CHF (congestive heart failure) Renal failure PVD (peripheral vascular disease) HTN (hypertension) Macular degeneration Maternal Grandfather CVD (cardiovascular disease) Myocardial infarction Maternal Grandmother Stomach cancer CVD (cardiovascular disease) Paternal Grandfather Black lung disease Paternal Grandmother No problems noted. Brother Substance use disorder Sister No problems noted. Son No problems noted. Son No problems noted. Family/Other History of breast cancer Maternal Uncle Colon cancer Social History Household Members: Spouse Housing: House Are you a primary healthcare or medical to a significant other at home: No Do you presently have visiting nurse or other home services: No Alcohol intake: former Comment: no skin breakdown noted Patient Tobacco Use Status: Former Tobacco user Tobacco use type: Cigarette Cigarette Packs Per Day: 1 Years Smoked: 10 yrs e-Cigarette/Vaping Use: Never Used service: No Current occupational status: retired Sexual orientation: Straight/Heterosexual Gender identity: Female Cognitive needs: No Hearing needs: No Vision needs: Yes Questionnaire PHQ-9 Over the last 2 weeks, how often have you been bothered by any of the following problems? 1. Little interest or pleasure in doing things: more than half the days 2. Feeling down, depressed, or hopeless: nearly every day 3. Trouble falling or staying asleep, or sleeping too much: more than half the days 4. Feeling tired or having little energy: nearly every day 5. Poor appetite or overeating: nearly every day 6. Feeling bad about yourself - or that you are a failure or have let yourself or your family down: not at all 7. Trouble concentrating on things, such as reading the newspaper or watching television: several days 8. Moving or speaking so slowly that other people could have noticed. Or the opposite - being so fidgety or restless that you have been moving around a lot more than usual: not at all 9. Thoughts that you would be better off or of hurting yourself in some way: not at all Total score: 14 Depression Screening Interpretation: Negative Depression Screening Done: Yes 20791 - PHQ-9 Billing: Yes Source: Developed by Drs. Raul Anderson, Elisabeth Ryder, Christiano Najera and colleagues, with an educational garrett from [employer]. Thrive Questionnaire Date Thrive assessed: 03/15/25 I am a: Patient What is your living situation today?: I have a steady place to live Within the past 12 months, did the food you bought not last and you didn't have the money to get more?: Never true Within the past 12 months, did you worry whether your food would run out before you got money to buy more?: I choose not to answer this question Do you have trouble paying for medicines?: No Do you have trouble getting transportation to medical appointments?: No Do you have trouble paying your heating and electricity bill?: I choose not to answer this question Do you have trouble taking care of your child, family member or friend?: No Do you have trouble with day-to-day activities such as bathing, preparing meals, shopping, managing finances, etc.?: I choose not to answer this question Are you currently unemployed and looking for a job?: No Are you interested in more education?: No Currently or been in a relationship where the following occur: No concerns reported THRIVE Score: 0 AUDIT C Alcohol Use Questionnaire (AUDIT-C) 2. How many drinks containing alcohol do you have on a typical day when you are drinking?: 1 or 2 3. How often do you have six or more drinks on one occasion?: Never Total Score: 0 COLETTE-7 AMB Questionnaire COLETTE-7 Date COLETTE - 7 assessed: 03/17/25 Feeling nervous, anxious, or on edge: 3 = Nearly every day Not being able to stop or control worryin = Several days Worrying too much about different things: 2 = More than half the days Trouble relaxin = Nearly every day Being so restless that it is hard to sit still: 1 = Several days Becoming easily annoyed or irritable: 2 = More than half the days Feeling afraid as if something awful might happen: 0 = Not at all Total COLETTE-7 score (0-4 normal; 5-9 mild; 10-14 moderate; 15-21 severe): 12 Source: Developed by Drs. Raul Anderson, Elisabeth Ryder, Christiano Najera and colleagues, with an educational garrett from [employer]. COLETTE-7 Assessment Billing COLETTE-7 Assessment Tool: COLETTE-7 Assessment 50560 Review of Systems Const All systems reviewed & are unremarkable except as noted in HPI and below Eyes Reports no additional complaints ENT Reports no additional complaints Card Reports no additional complaints Resp Reports no additional complaints GI Reports no additional complaints Reports no additional complaints Physical exam (Primary Care) Vital Signs: Last Vital Signs Pulse 71 03/17/25 09:58 Resp 16 03/17/25 09:58 BP 140/88 H 03/17/25 09:58 Pulse Ox 97 03/17/25 09:58 Oxygen Delivery Method Room Air 03/17/25 09:58 BMI result Body Mass Index 25.3 Tobacco/Smoking Status: Tobacco use Status Tobacco use date assessed 03/17/25 03/17/25 10:01 Patient Tobacco Use Status Former Tobacco user 03/17/25 10:01 Tobacco use type Cigarette 03/17/25 10:01 e-Cigarette/Vaping Use Never Used 03/17/25 10:01 PHQ-9: PHQ-9 Score PHQ-9: Total score 14 03/17/25 10:01 Depression Screening Interpretation: Negative Thrive Assessment: Date of Thrive Assessment Date Thrive assessed 03/15/25 03/17/25 10:01 Currently or been in a relationship where the following occur: No concerns reported Const General: no acute distress HENMT Head: Yes normal to inspection Ears: TM's normal bilaterally Face and sinus: Yes sinus tenderness Throat: Yes postnasal drainage Eyes General: appearance normal, both eyes and all related structures Neck Neck: Yes no lymphadenopathy and Yes supple Resp Effort & Inspection: normal respiratory effort Auscultation: clear to auscultation bilaterally Cardio Rhythm: regular rhythm Heart sounds: S1 normal heart sound present and S2 normal heart sound present Coding Level of Care Code Est Pt Level 4 (79950) Diagnoses Sinusitis J32.9 Metastatic breast cancer C50.919 Essential hypertension I10 Additional Codes COLETTE-7 Assessment Billing - COLETTE-7 Assessment Tool: COLETTE-7 Assessment 64144 ([id number]) PHQ-9 - 89381 - PHQ-9 Billing: Yes ([id number]) Assessment & Plan Assessment & Plan (1) Sinusitis: Code(s): J32.9 - Chronic sinusitis, unspecified Category: Medical Plan: For chronic sinusitis Z-Aguilar as prescribed. Patient was advised to take Zyrtec regularly and use Flonase nasal spray as needed. (2) Metastatic breast cancer: Comment: ([facility] Rt breast s/p lumpectomy/chemo/radiation in 2005 - now has malignant right pleural effusion, on palliative chemotherapy established with [facility] Oncology Code(s): C50.919 - Malignant neoplasm of unspecified site of unspecified female breast Category: Medical Plan: Follow-up with oncology (3) Essential hypertension: Comment: Established with [facility] Cardiology Code(s): I10 - Essential (primary) hypertension Category: Medical Plan: Follow-up with cardiology continue propranolol Medications: New azithromycin For 250 mg dose pack: take 500 mg today (day 1), then 250 mg for 4 days (days 2-5) PO 6 tabs 0RF
--- OUTSIDE RECORDS SUMMARY | 2025-03-17 10:48 | XMS_ITS | Clinical Summary ---
Author Organization [facility] Address [address] [place] [address] Phone Care Team Providers Care Manager Registration Name Role Phone Unavailable Primary Care Provider Unavailabl e Encounters Date Type Department Care Team Description 01/07/2025 9:31 AM EDT - 01/07/2025 11:59 PM EDT Hospital Encounter [facility] PET Scan [address] [place] [address] Malignant neoplasm of unspecified site of unspecified female breast (CMS/HCC V24, CMS/HCC V28); Malignant neoplasm of overlapping sites of right female breast (CMS/HCC V24, CMS/HCC V28) Discharge Disposition: [...] Last Done Comments Breast Cancer Screening 1955 Colorectal Cancer Screening: Colonoscopy 1955 COVID-19 Vaccine (#1) 02/14/1961 DTaP,Tdap,and Td Vaccines (1 - Tdap) 02/14/1975 Pneumococcal Vaccine: 50+ Ye ars (1 of 2 - PCV) 02/14/1975 Zoster Vaccines (1 of 2) 02/14/1975 Depression Screening 03/26/2024 Falls Risk Assessment 07/21/2024 Hepatitis C Screening [...] CT SKULL TO MID THIGH SUBSEQUENT Routine 01/07/2025 11:04 AM EDT Malignant neoplasm of unspecified site of unspecified female breast (CMS/HCC V24, CMS/HCC V28) Malignant neoplasm of overlapping sites of right female breast (CMS/HCC V24, CMS/HCC V28) from Last 3 Months Results * PET CT Skull to Mid Thigh Subsequent (01/07/2025 11:04 AM EDT) Anatomical Region Laterality Modality Body Radiographic Ene ging 01/15/2025 4:22 AM EDT Impressions 01/15/2025 4:47 AM EDT 1. Interval decrease in FDG activity of right-sided pleural activity 2. New groundglass opacities/nodules in the superior segment of the left lower lobe with associated FDG activity. This may represent postinfectious/postinflammatory process or underlying malignancy. 3. New nonspecific activity at the level of the vagina. Correlation with patient's clinical history and physical examination is recommended. Please note: The CT was acquired at a low radiation dose settings. The images are of nondiagnostic quality and used solely for purposes of attenuation correction and slice localization for the PET scan. If a diagnostic CT study is desired it must be ordered separately. -------- FINAL REPORT -------- Dictated By: Dayanna Draper Dictated Date: 01/15/2025 04:22 ET Assigned Physician: Dayanna Draper Reviewed and Electronically Signed By: Dayanna Draper Signed Date: 01/15/2025 04:47 ET Workstation ID: [id number] Transcribed By: Self Edit Transcribed Date: 01/15/2025 04:22 ET Narrative 01/15/2025 4:47 AM EDT INDICATION: RIGHT BREAST CANCER. History of right breast cancer status post lumpectomy and lymph node dissection as well as chemoradiation. History of thyroid cancer. Metastatic disease to the mediastinal lymph nodes and right-sided pleural effusion. Restaging. TECHNIQUE: FDG PET-CT imaging was performed from the skull bases through the thighs in a single acquisition with data set reconstructed in axial, coronal, and sagittal planes at the computer workstation with fused data from both the PET imaging study and attenuation correction CT. The CT portion of the examination was done strictly for attenuation correction and is not a true diagnostic CT examination. DLP: 764 mGy-cm Radiopharmaceutical: 12.5 mCi of F-18 FDG IV. Blood glucose: 111 mg/dl. COMPARISON: Prior PET/CT June 2024. FINDINGS: HEAD AND NECK: No abnormal FDG activity. THORAX: Interval decrease in right-sided calcified pleural activity SUV max 6.8 (previously 8.3), activity along the anterior junction line on the right SUV max 2.5 (previously 3.6), right lung base measuring up to SUV Max 2.7 (previously 4.7) and along the right middle lobe SUV max 3.1 (previously 3.9). 5 mm opacity/nodule in the right lung base SUV max 2.0 (not mentioned in report of June 2024 but retrospectively similar). New groundglass opacities/nodules in the superior segment of the left lower lobe measuring up to 6 mm SUV max 2.7. ABDOMEN/PELVIS: No FDG avid abdominal or pelvic lymph nodes. Nonspecific activity at the level of the vagina SUV Max 3.9; new from prior. Cholelithiasis. MUSCULOSKELETAL: Interval decrease in activity along the right anterolateral chest wall SUV max 2.1 (previously 3.1). Procedure Note Dayanna Draper MD - 01/15/2025 INDICATION: RIGHT BREAST CANCER. History of right breast cancer statuspost lumpectomy and lymph node dissection as well as chemoradiation.History of thyroid cancer. Metastatic disease to the mediastinal lymphnodes and right-sided pleural effusion. Restaging. TECHNIQUE: FDG PET-CT imaging was performed from the skull bases throughthe thighs in a single acquisition with data set reconstructed in axial,coronal, and sagittal planes at the computer workstation with fused datafrom both the PET imaging study and attenuation correction CT. The CTportion of the examination was done strictly for attenuation correctionand is not a true diagnostic CT examination. DLP: 764 mGy-cm Radiopharmaceutical: 12.5 mCi of F-18 FDG IV. Blood glucose: 111 mg/dl. COMPARISON: Prior PET/CT June 2024. FINDINGS: HEAD AND NECK: No abnormal FDG activity. THORAX: Interval decrease in right-sided calcified pleural activity SUVmax 6.8 (previously 8.3), activity along the anterior junction line on theright SUV max 2.5 (previously 3.6), right lung base measuring up to SUVMax 2.7 (previously 4.7) and along the right middle lobe SUV max 3.1(previously 3.9). 5 mm opacity/nodule in the right lung base SUV max 2.0 (not mentioned inreport of June 2024 but retrospectively similar). New groundglassopacities/nodules in the superior segment of the left lower lobe measuringup to 6 mm SUV max 2.7. ABDOMEN/PELVIS: No FDG avid abdominal or pelvic lymph nodes. Nonspecificactivity at the level of the vagina SUV Max 3.9; new from prior.Cholelithiasis. MUSCULOSKELETAL: Interval decrease in activity along the rightanterolateral chest wall SUV max 2.1 (previously 3.1). IMPRESSION: 1. Interval decrease in FDG activity of right-sided pleural activity 2. New groundglass opacities/nodules in the superior segment of the leftlower lobe with associated FDG activity. This may representpostinfectious/postinflammatory process or underlying malignancy. 3. New nonspecific activity at the level of the vagina. Correlation withpatient's clinical history and physical examination is recommended. Please note: The CT was acquired at a low radiation dose settings. The images are ofnondiagnostic quality and used solely for purposes of attenuationcorrection and slice localization for the PET scan. If a diagnostic CTstudy is desired it must be ordered separately. -------- FINAL REPORT -------- Dictated By: Dayanna Draper Dictated Date: 01/15/2025 04:22 ET Assigned Physician: Dayanna Draper Reviewed and Electronically Signed By: Dayanna Draper Signed Date: 01/15/2025 04:47 ET Workstation ID: [id number] Transcribed By: Self Edit Transcribed Date: 01/15/2025 04:22 ET Alyssa José MD IMG NM PROCEDURES Final Result from Last 3 Months Insurance [employer] MED[employer]ARE [employer]
== END 2025-03-17 10:30 | disposition home or self-care (01) ==
LOC: HO.HMCC 09:57
PROVIDERS: PCP Internal Medicine; Visit Provider Internal Medicine
DX: J32.9 Chronic sinusitis, unspecified (principal); C50.919 Malignant neoplasm of unspecified site of unspecified female breast; I10 Essential (primary) hypertension

== ENCOUNTER → 2025-03-17 09:56 | Outpatient (BNVA) | payer MEDICARE, SELFPAY | PROVIDERS: PCP Internal Medicine; Visit Provider Internal Medicine | DX: J32.9 Chronic sinusitis, unspecified (principal); I10 Essential (primary) hypertension; Z85.3 Personal history of malignant neoplasm of breast; Z13.31 Encounter for screening for depression; Z13.39 Encounter for screening examination for other mental health and behavioral disorders | CPT/HCPCS: 96127; 99212 ==